=== PATIENT | female | born 1970 | race Caucasian/White ===

== ENCOUNTER 2017-02-12 05:39 | Outpatient (CLI) | payer BC ==
[~2017-02-12] VITALS: Ht 168.9 cm; Wt 74.8 kg
[2017-02-12] MEDS ORDERED: BCP PO (15:17)
== END 2017-02-12 15:17 ==
LOC: PREOP 05:39
PROVIDERS: ATTEND Otolaryngology Otolaryngology/Facial Plastic Surgery
DX: Z01.818 Encounter for other preprocedural examination (principal); R22.1 Localized swelling, mass and lump, neck

== ENCOUNTER → 2017-02-17 | Outpatient (CLI) | payer BC ==
[~2017-02-17] MED LIST: BCP PO; HYDR-3812 PO
--- NOTE | 2017-02-18 10:13 | ECHOCARDIOGRAPHY REPORT ---
PROCEDURE PHYSICIAN: HARJINDER MCGREGOR DATE OF PROCEDURE: 02/17/2017 TWO DIMENSIONAL ECHOCARDIOGRAM REPORT PRIMARY PHYSICIAN: Dr. Loaiza OTHER PHYSICIAN: Dr. De La Torre REFERRING PHYSICIAN: ORDERING PHYSICIAN: Dr. Mcgregor INDICATION FOR THE PROCEDURE: Chest discomfort, abnormal electrocardiogram. MEASUREMENTS DERIVED VALUES LV DIAMETER (LAX) NORMALS NORMALS Diastolic 4.8 (3.6-5.2) Eject. Fract. (60%+/-6%) Systolic (2.3-3.9) Diastolic Vol. % Shortening (0.22-0.42) Systolic Vol. Aortic Root 2.8 IVS THICKNESS Diastolic 0.9 (0.6-1.1) LVPW THICKNESS Diastolic 0.8 (0.6-1.1) LA DIAMETER Systolic 3.4 (2.1-3.7) Baseline echocardiography shows normal global left ventricular systolic function with normal regional wall motion. The aortic, mitral and tricuspid valve leaflets show good leaflet excursion. There is no significant pericardial effusion. Doppler imaging shows trivial, tricuspid and pulmonic regurgitation. There is no Doppler evidence of any significant valvular stenosis. Trivial, mitral regurgitation is also seen. There is no Doppler evidence of any significant valvular stenosis. Aortic valve is trileaflet. Left ventricular ejection fraction of approximately 65%. Pulmonary artery systolic pressure is estimated to be approximately 25 mmHg. There is no evidence of any significant intracardiac shunt on this transthoracic echocardiographic study. Vena cava appears of normal size and does exhibit normal inspiratory collapse. CONCLUSIONS: 1. Normal global left ventricular systolic function with normal regional wall motion. Left ventricular ejection fraction of approximately 60 to 65%. 2. Trivial, mitral, tricuspid and pulmonic regurgitation. 3. No evidence of significant valvular stenosis. 4. Pulmonary artery systolic pressure is estimated to be within normal limits. Job ID: [id number] Dictated Date: 02/17/2017 15:22:43 Director Product Management Date: 02/18/2017 10:06:15 / jackie
--- NOTE | 2017-02-18 12:09 | STRESS TEST ---
PROCEDURE PHYSICIAN: HARJINDER MCGREGOR EXERCISE STRESS ECHOCARDIOGRAPHY REPORT: DATE OF PROCEDURE: 02/17/2017 ORDERING PHYSICIAN: Dr. Mcgregor. PRIMARY PHYSICIAN: Dr. Loaiza OTHER PHYSICIAN: Dr. De La Torre CLINICAL DIAGNOSIS: Chest discomfort, abnormal electrocardiogram. Baseline echocardiography shows normal left ventricular systolic function without regional wall motion abnormalities. Left ventricular ejection fraction is approximately 60%. Exercise was then carried out on a treadmill. Bryan protocol was employed. Heart rate and blood pressure responses to exercise were normal. At peak exercise, there was considerable baseline artifact but there does not appear to be significant ST segment depression beyond her baseline of mild ST segment depression. She exercised for a total of 9 minutes and 51 seconds and attained 12.8 METs of workload and 110% of maximum predicted heart rate. No arrhythmia was seen during the study. Echocardiography was repeated immediately post exercise and it shows normal augmentation of wall motion and ejection fraction. CONCLUSION: 1. No evidence of any exercise-induced myocardial ischemia this study. 2. No evidence of any myocardial ischemia on this study. 3. Left ventricular ejection fraction baseline was 60 to 65%. Job ID: [id number] Dictated Date: 02/17/2017 15:24:45 Packing Machine Tender Date: 02/18/2017 12:02:14 / jackie
== END ==
LOC: CARD 12:15
PROVIDERS: ATTEND Internal Medicine Cardiovascular Disease
DX: R07.89 Other chest pain (principal); R94.31 Abnormal electrocardiogram [ECG] [EKG]; Z86.79 Personal history of other diseases of the circulatory system
CPT/HCPCS: 93306; 93351

== ENCOUNTER 2017-02-20 06:48 | Day surgery (SDC) | payer BC ==
[~2017-02-20] VITALS: Ht 168.9 cm; Wt 74.8 kg
[~2017-02-20 06:48] MED LIST changes: -HYDR-3812 PO
[2017-02-20] MEDS ORDERED: ONDANSETRON 4 MG/2 ML (SDV) Z0FRAN ONE (07:23)
[2017-02-20] MEDS ORDERED: SCOPOLAMINE 1.5 MG (TRANSDERM-SCOP) PATCH ONE (07:23)
[2017-02-20] MEDS ORDERED: FAMOTIDINE 20MG/2ML IV (PEPCID) ONE (07:23)
[2017-02-20] MEDS ORDERED: LACTATED RINGERS 1,000 ML IV PRN (07:28)
[2017-02-20] MEDS ORDERED: ONDANSETRON 4 MG/2 ML (SDV) Z0FRAN IV ONE (07:30)
[2017-02-20] MEDS ORDERED: FAMOTIDINE 20MG/2ML IV (PEPCID) IV ONE (07:30)
[2017-02-20] MEDS ORDERED: SCOPOLAMINE 1.5 MG (TRANSDERM-SCOP) PATCH TOP ONE (07:30)
--- NOTE | 2017-02-20 07:36 | Progress Note-Pre Operative ---
Pre-Operative Progress Note H&P Reviewed The H&P was reviewed, patient examined and no changes noted. Date H&P Reviewed: Feb 20, 2017 Time H&P Reviewed: 07:15 Pre-Operative Diagnosis: Right Neck Mass KATELYNN SPAULDING MD Feb 20, 2017 7:36 am
[2017-02-20] MEDS ORDERED: proPOfol 200 MG/20 ML (DIPRIVAN) VIAL IV ONE (07:42)
[2017-02-20] MEDS ORDERED: MIDAZOLAM 2 MG/2 ML (VERSED) VIAL ONE (07:42)
[2017-02-20] MEDS ORDERED: fentaNYL INJECTION 100 MCG/2 ML AMP ONE ×2 (07:42→09:36)
[2017-02-20] MEDS ORDERED: MUPIROCIN 2% OINT 22 GM (BACTROBAN) TUBE ONE (07:50)
[2017-02-20] MEDS ORDERED: LIDOCAINE/EPI 1%-1:100,000 (XYLOCAINE) 20ML ONE (07:50)
[2017-02-20 07:59] VITALS: BP 119/93
[2017-02-20] MEDS ORDERED: DEXAMETHASONE PF 10 MG/ML (DECADRON) VIAL ONE (09:38)
[2017-02-20] MEDS ORDERED: LACTATED RINGERS 2,000 ML IV ONE (09:38)
[2017-02-20] MEDS ORDERED: SEVOFLURANE (ULTANE) 15 ML INHAL SOLN ONE ×4 (09:38→10:40)
[2017-02-20] MEDS ORDERED: BSS 15 ML ONE (10:35)
[2017-02-20] MEDS ORDERED: morphine INJ 10 MG/ML 1ML (SYR OR VIAL) ONE (10:39)
--- NOTE | 2017-02-20 10:51 | Progress Note-Post Operative ---
Post-Operative Progess Note Surgeon (s)/Senior Director Insight (s) Surgeon KATELYNN SPAULDING MD Senior Director Insight: n/a Pre-Operative Diagnosis RIGHT NECK PAROTID MASS Post-Operative Diagnosis same Post-Op Procedure Note Date of Procedure: Feb 20, 2017 Name of Procedure Performed: Excision of Right Parotid MaSS Description of the Procedure: n/a Findings of the Procedure right intraparotid lymph node to pathology for review Anesthesia Type get Estimated blood loss (mL): minimal Packing: n/a Specimen(s) collected/removed Right Intraparotid lymph node KATELYNN SPAULDING MD Feb 20, 2017 10:50 am
[2017-02-20] MEDS ORDERED: HYDROcodone/APAP 5 MG/325 MG (LORTAB) TAB PO PRN (11:00)
[2017-02-20] MEDS ORDERED: ACETAMINOPHEN 325 MG TABLET/CAPLET (TYLENOL) PO PRN (11:00)
[2017-02-20 11:40] VITALS: BP 116/79
[2017-02-20 12:10] VITALS: BP 118/79
[2017-02-20 12:40] VITALS: BP 103/69
[2017-02-20] MEDS ORDERED: HYDR-3812 PO (12:50)
== END 2017-02-20 13:40 | disposition home or self-care (01) ==
LOC: DELPENDDIS → SDC 06:48
PROVIDERS: ATTEND Otolaryngology Otolaryngology/Facial Plastic Surgery
DX: C82.91 Follicular lymphoma, unspecified, lymph nodes of head, face, and neck (principal)
CPT/HCPCS: 84703; 87081; 88305; 88331; 88341; 88342

== ENCOUNTER → 2017-03-24 | Outpatient (CLI) | payer BC ==
[~2017-03-24] MED LIST changes: +HYDR-3812 PO
--- NOTE | 2017-03-24 16:35 | Diagnostic Imaging Report ---
EXAMINATION: PET-CT TECHNIQUE: Serum glucose level at the time of the study is: 90 mg/dL. 13.4 mCi of FDG was administered intravenously followed by obtaining PET images with corresponding noncontrast CT scan images. The CT scan was performed for anatomic correlation and attenuation correction and was not performed according to the diagnostic protocol of the areas covered. The scan was performed from the head to mid thighs. INDICATION: Lymphoma, initial staging. FINDINGS: There is symmetric FDG uptake in the brain. Moderate hypermetabolism is seen along the nodule abutting the superficial anterior aspect of the right parotid gland, may relate to a preauricular lymph node. There is also asymmetric increased FDG uptake within the right parotid gland inferiorly and may relate to an involved intraparotid lymph node. There is moderate hypermetabolism in the left axilla corresponding to enlarged lymph nodes masses with maximum SUV of 8.4. The larger lymph node is 2.9 x 1.4 cm in size. There is a large mass measuring 4.8 x 3.5 cm in maximum axial dimension along the right anterior chest wall with significant FDG uptake. This may have arisen from an intramammary lymph node and invaded the chest wall and the adjacent chondral cartilage. Its FDG uptake is also overlapping with the sternum. Although there is no obvious erosion of the sternum, there is the suggestion of slight sclerosis which might relate to bone involvement, as well. The maximum SUV is 9.6. The spleen is not enlarged. There is no suspicious hypermetabolic mass seen in the upper abdomen. Urinary tract excretion is seen as expected. There is a mass measuring 2.1 x 1.6 cm in the left side of the pelvis, probably an enlarged left internal iliac lymph node with maximum SUV of 6.8. IMPRESSION: Multiple hypermetabolic enlarged lymph nodes in the neck, left axilla, and left side of the pelvis are seen. A dominant mass in the anterior medial aspect of the right chest wall is perhaps an internal mammary lymph node mass that invaded the chest wall around the corresponding level chondral cartilage and possibly involving the sternum. Dictated by: Dictated on workstation # [id number]
== END ==
LOC: RAD 07:44
PROVIDERS: ATTEND Internal Medicine Hematology & Oncology
DX: C85.90 Non-Hodgkin lymphoma, unspecified, unspecified site (principal); R22.2 Localized swelling, mass and lump, trunk

== ENCOUNTER 2017-03-26 08:25 | Outpatient (RCR) | payer BC ==
[2017-03-13 14:09] LABS: BASOPHILS % (AUTO) 0 % (0-10); EOSINOPHILS # (AUTO) 0.1 10^3/uL (0.0-0.3); EOSINOPHILS % (AUTO) 1 % (0-10); LYMPHOCYTES # (AUTO) 1.8 X 10^3 (1.0-4.0); LYMPHOCYTES % (AUTO) 32 % (12-44); MEAN CORPUSCULAR HEMOGLOBIN 28 PG (25-34); MEAN CORPUSCULAR HGB CONC 32 G/DL (32-36); MEAN CORPUSCULAR VOLUME 87 FL (80-99); MEAN PLATELET VOLUME 9.7 FL (7.4-10.4); MONOCYTES # (AUTO) 0.5 X 10^3 (0.0-1.0); MONOCYTES % (AUTO) 9 % (0-12); NEUTROPHILS # (AUTO) 3.3 X 10^3 (1.8-7.8); NEUTROPHILS % (AUTO) 58 % (42-75); PLATELET COUNT 503 10^3/uL (130-400); RED BLOOD COUNT 4.57 10^6/uL (4.35-5.85); RED CELL DISTRIBUTION WIDTH 13.5 % (10.0-14.5); WHITE BLOOD COUNT 5.8 10^3/uL (4.3-11.0)
[2017-03-13 14:30] LABS: ALANINE AMINOTRANSFERASE 12 U/L (0-55); ALBUMIN 4.3 G/DL (3.2-4.5); ANION GAP 11 MMOL/L (5-14); ASPARTATE AMINO TRANSFERASE 13 U/L (5-34); BILIRUBIN,TOTAL 0.3 MG/DL (0.1-1.0); BLOOD UREA NITROGEN 10 MG/DL (7-18); BUN/CREATININE RATIO 12; CALCIUM 9.1 MG/DL (8.5-10.1); CARBON DIOXIDE 23 MMOL/L (21-32); CHLORIDE 106 MMOL/L (98-107); CREATININE SERUM 0.81 MG/DL (0.60-1.30); GFR ESTIMATED > 60; GLUCOSE 91 MG/DL (70-105); LACTATE DEHYDROGENASE 157 U/L (125-220); POTASSIUM 4.1 MMOL/L (3.6-5.0); SODIUM 140 MMOL/L (135-145); TOTAL PROTEIN 7.1 G/DL (6.4-8.2)
[2017-03-16 10:48] LABS: PEP REPORT SEE PATH REPORT
[2017-03-17 02:45] LABS: IMMUNOGLOBULIN IGA 120 mg/dL (71-263); IMMUNOGLOBULIN IGG 810 mg/dL (672-1680); LIGHT CHAIN KAPPA SERUM QUANT 12.21 mg/L (3.30-19.40)
[2017-03-17 10:18] LABS: IMMUNOGLOBULIN IGM 54 mg/dL (47-209)
[2017-03-19 08:04] LABS: CLIN PATHOLOGY REPORT FOOTNOTE; SERUM PROTEIN ELEC DETAIL L-17-0005378
== END 2017-06-11 | disposition home or self-care (01) ==
LOC: ONC 08:25
PROVIDERS: ATTEND Internal Medicine Hematology & Oncology
DX: C82.91 Follicular lymphoma, unspecified, lymph nodes of head, face, and neck (principal); K21.9 Gastro-esophageal reflux disease without esophagitis; Z79.899 Other long term (current) drug therapy
CPT/HCPCS: 36415; 80053; 82784; 83615; 83883; 84155; 84165; 85025; 99213

== ENCOUNTER → 2017-07-29 | Outpatient (CLI) | payer BC ==
[~2017-07-29] MED LIST changes: +BARIUM SUSPENSION 2.1% (REDI-CAT 2) 450 ML PO ONE; +CATHETER FLUSH 10 ML SYR IV PRN; +IOHEXOL 350 MG/ML 150 ML (OMNIPAQUE 350) VIAL IV ONE; +NS 100 ML (IVPB) BAG IV ONE
--- NOTE | 2017-07-29 15:57 | Diagnostic Imaging Report ---
EXAMINATION: CT of the neck, chest, abdomen, and pelvis with and without contrast. INDICATION: Lymphoma. TECHNIQUE: Contiguous axial sections were taken through the abdomen and pelvis following administration of oral contrast. Subsequent additional images of the neck, chest, abdomen, and pelvis were obtained after intravenous contrast was administered. Delayed series through the abdomen and pelvis was also performed. Sagittal and coronal reconstructed images were obtained as well. FINDINGS: The previous CT chest, abdomen, and pelvis exam of 03/05/[address] neck exam of 01/23/2017 from [facility] in [place], [place] and the PET/CT exam of 03/24/2017 from this institution were reviewed. The PET/CT exam did note hypermetabolic activity along the inferior aspect of the right parotid gland and the left axilla as well as an isolated hypermetabolic node in the left pelvis. On this exam, there is still an enlarged lymph node just superior to the right parotid gland. This measures 1.0 x 1.6 cm. On the prior PET/CT exam, this finding measured approximately 1.8 x 1.0 cm. There is also slightly enhancing lymph node along the inferior pole of the right parotid gland. This measures 1.0 x 1.[address] neck exam of 01/23/2013, this area measured 1.6 x 2.2 cm. The left axillary adenopathy noted previously has diminished. There is only a single node now present in this area. This node measures 1.1 x 2.2 cm as opposed to 1.4 x 2.9 cm previously. The hypermetabolic mass along the anterior aspect of the right thorax near the sternum measuring 3.5 x 4.8 cm on the prior exam has also diminished in size and now is estimated to be 1.7 x 3.9 cm. The hypermetabolic lymph node in the left iliac chain seen on the prior exam measuring 2.2 x 1.6 cm is now estimated to be 2.3 x 1.7 cm. This finding seems virtually unchanged when compare the prior study. The overall appearance of the neck, chest, abdomen, and pelvis does not seem to have changed significantly otherwise. There is no other area of neoplastic activity, and there is no sign of an acute cardiopulmonary abnormality. IMPRESSION: 1. The appearance of the neck and chest has improved since the prior exam. The nodes about the parotid gland on the right seen previously have decreased in size slightly and the left axillary adenopathy has also diminished, although there is still a 1.1 x 2.2 cm node present in this area. The mass along the anterior chest wall noted previously has also decreased in size considerably. 2. There is still a persistent enlarged lymph node in the left iliac chain. This seems unchanged when compared to the prior exam. 3. There is no acute abnormality of the neck, chest, abdomen, or pelvis identified. Dictated by: Dictated on workstation # [id number]
== END ==
LOC: RAD 13:12
PROVIDERS: ATTEND Internal Medicine Hematology & Oncology
DX: C82.18 Follicular lymphoma grade II, lymph nodes of multiple sites (principal)
CPT/HCPCS: 70491; 71260; 74178

== ENCOUNTER 2017-08-18 13:04 | Outpatient (RCR) | payer BC ==
[2017-06-29 14:45] LABS: BASOPHILS % (AUTO) 0 % (0-10); EOSINOPHILS # (AUTO) 0.1 10^3/uL (0.0-0.3); EOSINOPHILS % (AUTO) 1 % (0-10); LYMPHOCYTES # (AUTO) 2.2 X 10^3 (1.0-4.0); LYMPHOCYTES % (AUTO) 28 % (12-44); MEAN CORPUSCULAR HEMOGLOBIN 26 PG (25-34); MEAN CORPUSCULAR HGB CONC 32 G/DL (32-36); MEAN CORPUSCULAR VOLUME 83 FL (80-99); MEAN PLATELET VOLUME 9.1 FL (7.4-10.4); MONOCYTES # (AUTO) 0.5 X 10^3 (0.0-1.0); MONOCYTES % (AUTO) 6 % (0-12); NEUTROPHILS # (AUTO) 5.1 X 10^3 (1.8-7.8); NEUTROPHILS % (AUTO) 65 % (42-75); PLATELET COUNT 499 10^3/uL (130-400); RED BLOOD COUNT 4.36 10^6/uL (4.35-5.85); RED CELL DISTRIBUTION WIDTH 14.5 % (10.0-14.5); WHITE BLOOD COUNT 7.9 10^3/uL (4.3-11.0)
[2017-06-29 16:07] LABS: ALANINE AMINOTRANSFERASE 13 U/L (0-55); ALBUMIN 4.1 GM/DL (3.2-4.5); ANION GAP 9 MMOL/L (5-14); ASPARTATE AMINO TRANSFERASE 15 U/L (5-34); BILIRUBIN,TOTAL 0.3 MG/DL (0.1-1.0); BLOOD UREA NITROGEN 9 MG/DL (7-18); BUN/CREATININE RATIO 11; CALCIUM 9.3 MG/DL (8.5-10.1); CARBON DIOXIDE 24 MMOL/L (21-32); CHLORIDE 106 MMOL/L (98-107); GFR ESTIMATED > 60; GLUCOSE 133 MG/DL (70-105); LACTATE DEHYDROGENASE 161 U/L (125-220); SODIUM 139 MMOL/L (135-145)
[~2017-08-18 13:04] MED LIST changes: -BARIUM SUSPENSION 2.1% (REDI-CAT 2) 450 ML PO ONE; -CATHETER FLUSH 10 ML SYR IV PRN; -IOHEXOL 350 MG/ML 150 ML (OMNIPAQUE 350) VIAL IV ONE; -NS 100 ML (IVPB) BAG IV ONE
[2017-08-18 13:38] LABS: BASOPHILS % (AUTO) 0 % (0-10); EOSINOPHILS # (AUTO) 0.1 10^3/uL (0.0-0.3); EOSINOPHILS % (AUTO) 2 % (0-10); LYMPHOCYTES # (AUTO) 2.1 X 10^3 (1.0-4.0); LYMPHOCYTES % (AUTO) 26 % (12-44); MEAN CORPUSCULAR HEMOGLOBIN 26 PG (25-34); MEAN CORPUSCULAR HGB CONC 32 G/DL (32-36); MEAN CORPUSCULAR VOLUME 82 FL (80-99); MEAN PLATELET VOLUME 9.9 FL (7.4-10.4); MONOCYTES # (AUTO) 0.6 X 10^3 (0.0-1.0); MONOCYTES % (AUTO) 7 % (0-12); NEUTROPHILS # (AUTO) 5.4 X 10^3 (1.8-7.8); NEUTROPHILS % (AUTO) 65 % (42-75); PLATELET COUNT 470 10^3/uL (130-400); RED BLOOD COUNT 4.43 10^6/uL (4.35-5.85); RED CELL DISTRIBUTION WIDTH 14.8 % (10.0-14.5); WHITE BLOOD COUNT 8.2 10^3/uL (4.3-11.0)
[2017-08-18 13:49] LABS: ALANINE AMINOTRANSFERASE 20 U/L (0-55); ALBUMIN 4.1 GM/DL (3.2-4.5); ANION GAP 11 MMOL/L (5-14); ASPARTATE AMINO TRANSFERASE 15 U/L (5-34); BILIRUBIN,TOTAL 0.2 MG/DL (0.1-1.0); BLOOD UREA NITROGEN 9 MG/DL (7-18); BUN/CREATININE RATIO 11; CARBON DIOXIDE 21 MMOL/L (21-32); CHLORIDE 106 MMOL/L (98-107); CREATININE SERUM 0.82 MG/DL (0.60-1.30); GFR ESTIMATED > 60; GLUCOSE 160 MG/DL (70-105); LACTATE DEHYDROGENASE 140 U/L (125-220); POTASSIUM 3.7 MMOL/L (3.6-5.0); SODIUM 138 MMOL/L (135-145); TOTAL PROTEIN 7.2 GM/DL (6.4-8.2)
== END 2017-08-22 | disposition home or self-care (01) ==
LOC: ONC 13:04
PROVIDERS: ATTEND Internal Medicine Hematology & Oncology
DX: C82.91 Follicular lymphoma, unspecified, lymph nodes of head, face, and neck (principal); K21.9 Gastro-esophageal reflux disease without esophagitis; Z79.899 Other long term (current) drug therapy
CPT/HCPCS: 36415; 80053; 83615; 85025; 99213

== ENCOUNTER 2017-11-10 12:49 | Outpatient (RCR) | payer BC ==
[~2017-11-10 12:49] MED LIST changes: +ACHD5005 PO; -HYDR-3812 PO
[2017-11-10 13:09] LABS: BASOPHILS % (AUTO) 0 % (0-10); EOSINOPHILS # (AUTO) 0.1 10^3/uL (0.0-0.3); EOSINOPHILS % (AUTO) 1 % (0-10); HEMATOCRIT 37 % (35-52); LYMPHOCYTES # (AUTO) 2.3 X 10^3 (1.0-4.0); LYMPHOCYTES % (AUTO) 27 % (12-44); MEAN CORPUSCULAR HEMOGLOBIN 27 PG (25-34); MEAN CORPUSCULAR HGB CONC 33 G/DL (32-36); MEAN CORPUSCULAR VOLUME 83 FL (80-99); MEAN PLATELET VOLUME 9.6 FL (7.4-10.4); MONOCYTES # (AUTO) 0.6 X 10^3 (0.0-1.0); MONOCYTES % (AUTO) 6 % (0-12); NEUTROPHILS # (AUTO) 5.8 X 10^3 (1.8-7.8); NEUTROPHILS % (AUTO) 66 % (42-75); PLATELET COUNT 494 10^3/uL (130-400); RED BLOOD COUNT 4.43 10^6/uL (4.35-5.85); RED CELL DISTRIBUTION WIDTH 14.9 % (10.0-14.5); WHITE BLOOD COUNT 8.8 10^3/uL (4.3-11.0)
[2017-11-10 13:26] LABS: ALANINE AMINOTRANSFERASE 16 U/L (0-55); ALBUMIN 4.1 GM/DL (3.2-4.5); ALKALINE PHOSPHATASE 81 U/L (40-136); BILIRUBIN,TOTAL 0.3 MG/DL (0.1-1.0); BUN/CREATININE RATIO 14; CALCIUM 9.2 MG/DL (8.5-10.1); CARBON DIOXIDE 23 MMOL/L (21-32); CHLORIDE 105 MMOL/L (98-107); CREATININE SERUM 0.77 MG/DL (0.60-1.30); GFR ESTIMATED > 60; GLUCOSE 156 MG/DL (70-105); POTASSIUM 3.8 MMOL/L (3.6-5.0); SODIUM 137 MMOL/L (135-145); TOTAL PROTEIN 6.9 GM/DL (6.4-8.2)
== END 2018-02-08 | disposition home or self-care (01) ==
LOC: ONC 12:49
PROVIDERS: ATTEND Internal Medicine Hematology & Oncology
DX: C82.91 Follicular lymphoma, unspecified, lymph nodes of head, face, and neck (principal); K21.9 Gastro-esophageal reflux disease without esophagitis; Z79.899 Other long term (current) drug therapy
CPT/HCPCS: 36415; 80053; 83615; 85025; 99213

== ENCOUNTER 2018-03-18 15:06 | Outpatient (RCR) | payer BC ==
[2018-03-18 14:50] LABS: BASOPHILS % (AUTO) 0 % (0-10); EOSINOPHILS # (AUTO) 0.1 10^3/uL (0.0-0.3); EOSINOPHILS % (AUTO) 1 % (0-10); HEMATOCRIT 37 % (35-52); HEMOGLOBIN 11.6 G/DL (11.5-16.0); LYMPHOCYTES # (AUTO) 2.5 X 10^3 (1.0-4.0); LYMPHOCYTES % (AUTO) 26 % (12-44); MEAN CORPUSCULAR HEMOGLOBIN 26 PG (25-34); MEAN CORPUSCULAR HGB CONC 32 G/DL (32-36); MEAN CORPUSCULAR VOLUME 83 FL (80-99); MONOCYTES # (AUTO) 0.5 X 10^3 (0.0-1.0); MONOCYTES % (AUTO) 5 % (0-12); NEUTROPHILS # (AUTO) 6.6 X 10^3 (1.8-7.8); NEUTROPHILS % (AUTO) 68 % (42-75); PLATELET COUNT 495 10^3/uL (130-400); RED BLOOD COUNT 4.41 10^6/uL (4.35-5.85); RED CELL DISTRIBUTION WIDTH 15.3 % (10.0-14.5); WHITE BLOOD COUNT 9.7 10^3/uL (4.3-11.0)
[2018-03-18 15:12] LABS: ALANINE AMINOTRANSFERASE 20 U/L (0-55); ALBUMIN 4.2 GM/DL (3.2-4.5); ALKALINE PHOSPHATASE 85 U/L (40-136); BILIRUBIN,TOTAL 0.3 MG/DL (0.1-1.0); BUN/CREATININE RATIO 13; CALCIUM 9.2 MG/DL (8.5-10.1); CARBON DIOXIDE 25 MMOL/L (21-32); CHLORIDE 107 MMOL/L (98-107); CREATININE SERUM 0.75 MG/DL (0.60-1.30); GFR ESTIMATED > 60; GLUCOSE 123 MG/DL (70-105); SODIUM 139 MMOL/L (135-145); TOTAL PROTEIN 7.3 GM/DL (6.4-8.2)
== END 2018-06-16 | disposition home or self-care (01) ==
LOC: ONC 15:06
PROVIDERS: ATTEND Internal Medicine Hematology & Oncology
DX: C82.18 Follicular lymphoma grade II, lymph nodes of multiple sites (principal); J06.9 Acute upper respiratory infection, unspecified; K21.9 Gastro-esophageal reflux disease without esophagitis; Z79.899 Other long term (current) drug therapy
CPT/HCPCS: 36415; 80053; 83615; 85025; 99213

== ENCOUNTER 2018-07-07 09:14 | Outpatient (RCR) | payer BC ==
[2018-07-07 09:22] LABS: BASOPHILS % (AUTO) 0 % (0-10); EOSINOPHILS # (AUTO) 0.1 10^3/uL (0.0-0.3); EOSINOPHILS % (AUTO) 1 % (0-10); HEMATOCRIT 37 % (35-52); HEMOGLOBIN 12.1 G/DL (11.5-16.0); LYMPHOCYTES # (AUTO) 2.3 X 10^3 (1.0-4.0); LYMPHOCYTES % (AUTO) 29 % (12-44); MEAN CORPUSCULAR HEMOGLOBIN 27 PG (25-34); MEAN CORPUSCULAR HGB CONC 32 G/DL (32-36); MEAN CORPUSCULAR VOLUME 83 FL (80-99); MEAN PLATELET VOLUME 9.1 FL (7.4-10.4); MONOCYTES # (AUTO) 0.6 X 10^3 (0.0-1.0); MONOCYTES % (AUTO) 8 % (0-12); NEUTROPHILS # (AUTO) 4.8 X 10^3 (1.8-7.8); NEUTROPHILS % (AUTO) 61 % (42-75); PLATELET COUNT 483 10^3/uL (130-400); RED BLOOD COUNT 4.47 10^6/uL (4.35-5.85); RED CELL DISTRIBUTION WIDTH 14.8 % (10.0-14.5); WHITE BLOOD COUNT 7.8 10^3/uL (4.3-11.0)
[2018-07-07 09:43] LABS: ALANINE AMINOTRANSFERASE 21 U/L (0-55); ALBUMIN 4.2 GM/DL (3.2-4.5); ALKALINE PHOSPHATASE 83 U/L (40-136); BILIRUBIN,TOTAL 0.4 MG/DL (0.1-1.0); BUN/CREATININE RATIO 15; CALCIUM 9.2 MG/DL (8.5-10.1); CARBON DIOXIDE 22 MMOL/L (21-32); CHLORIDE 106 MMOL/L (98-107); GFR ESTIMATED > 60; GLUCOSE 108 MG/DL (70-105); POTASSIUM 4.3 MMOL/L (3.6-5.0); SODIUM 138 MMOL/L (135-145)
== END 2018-07-23 | disposition home or self-care (01) ==
LOC: ONC 09:14
PROVIDERS: ATTEND Internal Medicine Hematology & Oncology
DX: C82.18 Follicular lymphoma grade II, lymph nodes of multiple sites (principal); J06.9 Acute upper respiratory infection, unspecified; K21.9 Gastro-esophageal reflux disease without esophagitis; Z79.899 Other long term (current) drug therapy
CPT/HCPCS: 36415; 80053; 82784; 83615; 85025; 99213

== ENCOUNTER 2018-10-07 08:24 | Outpatient (RCR) | payer BC ==
[2018-10-07 08:39] LABS: BASOPHILS % (AUTO) 0 % (0-10); EOSINOPHILS # (AUTO) 0.1 10^3/uL (0.0-0.3); EOSINOPHILS % (AUTO) 1 % (0-10); HEMATOCRIT 36 % (35-52); HEMOGLOBIN 11.7 G/DL (11.5-16.0); LYMPHOCYTES # (AUTO) 1.9 X 10^3 (1.0-4.0); LYMPHOCYTES % (AUTO) 28 % (12-44); MEAN CORPUSCULAR HEMOGLOBIN 27 PG (25-34); MEAN CORPUSCULAR HGB CONC 32 G/DL (32-36); MEAN CORPUSCULAR VOLUME 83 FL (80-99); MEAN PLATELET VOLUME 9.4 FL (7.4-10.4); MONOCYTES # (AUTO) 0.5 X 10^3 (0.0-1.0); MONOCYTES % (AUTO) 8 % (0-12); NEUTROPHILS # (AUTO) 4.3 X 10^3 (1.8-7.8); NEUTROPHILS % (AUTO) 63 % (42-75); PLATELET COUNT 463 10^3/uL (130-400); RED CELL DISTRIBUTION WIDTH 14.4 % (10.0-14.5); WHITE BLOOD COUNT 6.8 10^3/uL (4.3-11.0)
[2018-10-07 09:09] LABS: ALANINE AMINOTRANSFERASE 13 U/L (0-55); ALBUMIN 4.2 GM/DL (3.2-4.5); ALKALINE PHOSPHATASE 94 U/L (40-136); BILIRUBIN,TOTAL 0.3 MG/DL (0.1-1.0); BUN/CREATININE RATIO 13; CALCIUM 9.4 MG/DL (8.5-10.1); CARBON DIOXIDE 23 MMOL/L (21-32); CHLORIDE 106 MMOL/L (98-107); CREATININE SERUM 0.82 MG/DL (0.60-1.30); GFR ESTIMATED > 60; GLUCOSE 85 MG/DL (70-105); POTASSIUM 4.1 MMOL/L (3.6-5.0); SODIUM 137 MMOL/L (135-145); TOTAL PROTEIN 7.2 GM/DL (6.4-8.2)
== END 2019-01-05 | disposition home or self-care (01) ==
LOC: ONC 08:24
PROVIDERS: ATTEND Internal Medicine Hematology & Oncology
DX: C82.18 Follicular lymphoma grade II, lymph nodes of multiple sites (principal); K21.9 Gastro-esophageal reflux disease without esophagitis; Z79.899 Other long term (current) drug therapy
CPT/HCPCS: 36415; 80053; 83615; 85025; 99213

== ENCOUNTER → 2019-01-04 | Outpatient (CLI) | payer BC ==
[~2019-01-04] MED LIST changes: +IOHEXOL 350 MG/ML 100 ML (OMNIPAQUE 350) VIAL IV ONE; +NS 100 ML (IVPB) BAG IV ONE; +RECEIVED CONTRAST (Hold Metformin) IV SCH
--- NOTE | 2019-01-04 13:31 | Diagnostic Imaging Report ---
INDICATION: Lymphoma. TECHNIQUE: Multiple contiguous axial CT images of the neck, chest, abdomen and pelvis are obtained after intravenous administration of iodinated contrast. COMPARISON: Comparison is made to study of 07/29/2017. CT NECK: There has been enlargement of the right preauricular nodule which now reaches 2.9 x 1.8 cm. This previously measured 1.6 x 1.0 cm. No other discrete mass identified. There are mildly prominent deep cervical lymph nodes bilaterally without evidence of significant enlargement since previous study. Airway is patent. There is no evidence of submandibular or thyroid gland abnormality. Great vessels in the neck appear to be widely patent. IMPRESSION: Interval increase in size of right preauricular mass which may be related to recurrent lymphoma. CT THORAX: There has been further increase in size of dominant left axillary lymph node which now measures 2.5 x 1.4 cm. Previous measurement was 2.2 x 1.1 cm. There has also been increase in mass in the right retrosternal region which measures 4.9 x 3.1 cm compared with 3.9 x 1.7 cm on the previous study. No other pathologically enlarged adenopathy is seen within the chest. The lungs are clear. There is no significant pleural or pericardial fluid. IMPRESSION: Increasing left axillary and right internal mammary region masses likely related to active lymphoma. CT ABDOMEN AND PELVIS: 1 cm cyst in the inferior aspect of the right hepatic lobe is stable. No other focal hepatic, gallbladder, pancreatic, adrenal gland or splenic abnormalities identified. The kidneys are also stable and unremarkable. There is no evidence of free fluid within the abdomen or pelvis. No definite pathologically enlarged adenopathy is identified. There has been apparent decrease in size of left internal iliac nodule measured on the previous study. Similar nodule currently measures 1.2 x 0.8 cm compared with 2.3 x 1.8 cm on the previous study. IMPRESSION: Interval decrease in conspicuity of left internal iliac chain nodule suggesting probable good response to treatment. Otherwise, no pathologic adenopathy or acute abnormality seen within the abdomen or pelvis. Dictated by: Dictated on workstation # [id number]
== END ==
LOC: RAD 12:22
PROVIDERS: ATTEND Nurse Practitioner Adult Health
DX: C82.18 Follicular lymphoma grade II, lymph nodes of multiple sites (principal); R22.0 Localized swelling, mass and lump, head
CPT/HCPCS: 70491; 71260; 74176

== ENCOUNTER 2019-01-11 08:42 | Outpatient (RCR) | payer BC ==
[~2019-01-11 08:42] MED LIST changes: -IOHEXOL 350 MG/ML 100 ML (OMNIPAQUE 350) VIAL IV ONE; -NS 100 ML (IVPB) BAG IV ONE; -RECEIVED CONTRAST (Hold Metformin) IV SCH
[2019-01-11 08:50] LABS: BASOPHILS % (AUTO) 0 % (0-10); EOSINOPHILS # (AUTO) 0.1 10^3/uL (0.0-0.3); EOSINOPHILS % (AUTO) 1 % (0-10); HEMATOCRIT 38 % (35-52); HEMOGLOBIN 12.1 G/DL (11.5-16.0); LYMPHOCYTES # (AUTO) 1.3 X 10^3 (1.0-4.0); LYMPHOCYTES % (AUTO) 23 % (12-44); MEAN CORPUSCULAR HEMOGLOBIN 26 PG (25-34); MEAN CORPUSCULAR HGB CONC 32 G/DL (32-36); MEAN CORPUSCULAR VOLUME 82 FL (80-99); MEAN PLATELET VOLUME 9.6 FL (7.4-10.4); MONOCYTES # (AUTO) 0.4 X 10^3 (0.0-1.0); MONOCYTES % (AUTO) 7 % (0-12); NEUTROPHILS # (AUTO) 3.8 X 10^3 (1.8-7.8); NEUTROPHILS % (AUTO) 68 % (42-75); PLATELET COUNT 487 10^3/uL (130-400); RED CELL DISTRIBUTION WIDTH 15.2 % (10.0-14.5); WHITE BLOOD COUNT 5.6 10^3/uL (4.3-11.0)
[2019-01-11 09:10] LABS: ALANINE AMINOTRANSFERASE 11 U/L (0-55); ALBUMIN 4.3 GM/DL (3.2-4.5); ALKALINE PHOSPHATASE 87 U/L (40-136); BILIRUBIN,TOTAL 0.2 MG/DL (0.1-1.0); BUN/CREATININE RATIO 10; CALCIUM 9.6 MG/DL (8.5-10.1); CARBON DIOXIDE 22 MMOL/L (21-32); CHLORIDE 108 MMOL/L (98-107); CREATININE SERUM 0.86 MG/DL (0.60-1.30); GFR ESTIMATED > 60; GLUCOSE 123 MG/DL (70-105); POTASSIUM 3.6 MMOL/L (3.6-5.0); SODIUM 140 MMOL/L (135-145); TOTAL PROTEIN 7.2 GM/DL (6.4-8.2)
== END 2019-04-11 | disposition home or self-care (01) ==
LOC: ONC 08:42
PROVIDERS: ATTEND Internal Medicine Hematology & Oncology
DX: C82.18 Follicular lymphoma grade II, lymph nodes of multiple sites (principal); K21.9 Gastro-esophageal reflux disease without esophagitis; Z79.899 Other long term (current) drug therapy
CPT/HCPCS: 36415; 80053; 83615; 85025; 99213

== ENCOUNTER → 2019-04-20 | Outpatient (CLI) | payer BC ==
[~2019-04-20] MED LIST changes: +BARIUM SUSPENSION 2.1% (VANILLA SILQ) 450 ML PO ONE; +HOLD METFORMIN - RECEIVED CONTRAST 20 ML VIAL IV SCH; +IOHEXOL 350 MG/ML 100 ML (OMNIPAQUE 350) VIAL IV ONE; +NS 100 ML (IVPB) BAG IV ONE
--- NOTE | 2019-04-20 12:17 | Diagnostic Imaging Report ---
INDICATION: Lymphoma. TECHNIQUE: Pre and post contrast axial imaging through the abdomen and pelvis with post contrast axial imaging through the neck and chest was performed. COMPARISON: Correlation is made with prior CT from 01/04/2019. FINDINGS: CT neck: Visualized intracranial structures are unremarkable. Posterior nasopharynx, oropharynx, and larynx are unremarkable. No thyroid masses are seen. Submandibular parotid glands are unremarkable. Previously noted right-sided preauricular node has increased in size, now measuring 3.4 cm x 2.1 cm compared with 2.9 x 1.8 cm. No other enlarged cervical nodes are seen. There are no fluid collections. IMPRESSION: Mild increase in size of right preauricular lymph node when compared with prior CT from 01/04/2019. CT chest: Previously noted left axillary lymph node measures 2.5 x 1.7 cm compared with 2.5 x 1.4 cm. Remainder of the left axilla is unremarkable. The right axilla is unremarkable. Soft tissue mass in the right internal mammary location measures 3.4 x 6.2 cm compared with 3.1 x 4.9 cm. Jyoti and mediastinum are unremarkable. No pericardial or pleural fluid is seen. The pulmonary parenchyma is unremarkable. No nodules, masses, or infiltrates are detected. IMPRESSION: A moderate increase in size of soft tissue mass related to the right internal mammary region when compared with CT from three months earlier. The left axillary node is similar to perhaps minimally larger when compared with prior. No new lymphadenopathy is seen. CT abdomen and pelvis: Small cyst in the inferior right lobe of the liver is stable. No new liver mass is detected. Gallbladder is unremarkable. There is no biliary ductal dilatation. The pancreas is unremarkable. Spleen is normal in size. No adrenal mass is detected. The kidneys are unremarkable. Aorta is nonaneurysmal. No central retroperitoneal or mesenteric lymphadenopathy is seen. The small and large bowel loops are normal in caliber. Previously noted left iliac chain lymph node is no longer visualized on today's study. No definite iliac or inguinal lymphadenopathy is seen. Bladder and uterus are unremarkable. Bony structures are unremarkable. IMPRESSION: No evidence of abdominal or pelvic lymphadenopathy. Previously noted left iliac chain lymph node is no longer visible. No acute feature is identified. Dictated by: Dictated on workstation # [id number]
== END ==
LOC: RAD 11:18
PROVIDERS: ATTEND Internal Medicine Hematology & Oncology
DX: C82.18 Follicular lymphoma grade II, lymph nodes of multiple sites (principal)
CPT/HCPCS: 70491; 71260; 74178

== ENCOUNTER 2019-04-26 12:59 | Outpatient (CLI) | payer BC ==
[~2019-04-26] VITALS: Ht 168.9 cm; Wt 81.6 kg
[~2019-04-26 12:59] MED LIST changes: -BARIUM SUSPENSION 2.1% (VANILLA SILQ) 450 ML PO ONE; -HOLD METFORMIN - RECEIVED CONTRAST 20 ML VIAL IV SCH; -IOHEXOL 350 MG/ML 100 ML (OMNIPAQUE 350) VIAL IV ONE; -NS 100 ML (IVPB) BAG IV ONE
[2019-04-26] MEDS ORDERED: FEXO180T84 PO (14:24)
[2019-04-26] MEDS ORDERED: ACET-2469 PO (14:24)
[2019-04-26] MEDS ORDERED: NAPR220T66 PO (14:24)
[2019-04-26] MEDS ORDERED: OMEP20TA33 PO (14:24)
== END 2019-04-26 14:39 | disposition home or self-care (01) ==
LOC: PREOP 12:59
PROVIDERS: ATTEND Surgery
DX: Z01.818 Encounter for other preprocedural examination (principal)

== ENCOUNTER 2019-04-27 08:05 | Day surgery (SDC) | payer BC ==
[~2019-04-27] VITALS: Ht 168.9 cm; Wt 81.6 kg
[2019-04-27] VITALS (8 sets, daily range): BP systolic 118–132; BP diastolic 68–83
[~2019-04-27 08:05] MED LIST changes: +ACET-2469 PO; +FEXO180T84 PO; +NAPR220T66 PO; +OMEP20TA33 PO
--- OUTSIDE RECORDS SUMMARY | 2019-04-27 08:09 | XMS REPORT | Continuity of Care Document ---
Author Organization Unknown Address Unknown Allergies Active Description Code Type Severity Reaction Onset Reported/Identified Relationship to Patient Clinical Status Yes No Known Drug Allergies [id number] Drug Allergy Unknown N/A 02/12/2017 Medications There is no data. Problems Date Dx Coded Attending Type Code Diagnosis Diagnosed By 02/12/2017 KATELYNN SPAULDING MD Ot R22.1 LOCALIZED SWELLING, MASS AND LUMP, NECK 02/12/2017 KATELYNN SPAULDING MD Ot Z01.818 ENCOUNTER FOR OTHER PREPROCEDURAL EXAMIN 02/13/2017 KATELYNN SPAULDING MD Ot R22.1 LOCALIZED SWELLING, MASS AND LUMP, NECK 02/13/2017 KATELYNN SPAULDING MD Ot Z01.818 ENCOUNTER FOR OTHER PREPROCEDURAL EXAMIN 02/19/2017 TESSA PANTOJA FACC, HARJINDER FACP CCDS Ot R07.89 OTHER CHEST PAIN 02/19/2017 TESSA PANTOJA FACC, ALI FACP CCDS Ot R94.31 ABNORMAL ELECTROCARDIOGRAM [ECG] [EKG] 02/19/2017 HARJINDER ZARATE MD, FACC FACP CCDS Ot Z86.79 PERSONAL HISTORY OF OTHER DISEASES OF 02/20/2017 KATELYNN SPAULDING MD Ot C82.91 FOLLICULAR LYMPHOMA, UNSP, NODES OF HEAD 02/20/2017 KATELYNN SPAULDING MD Ot R22.1 LOCALIZED SWELLING, MASS AND LUMP, NECK 02/25/2017 HARJINDER ZARAET MD, FACC FACP CCDS Ot R07.89 OTHER CHEST PAIN 02/25/2017 TESSA PANTOJA FACC, HARJINDER FACP CCDS Ot R94.31 ABNORMAL ELECTROCARDIOGRAM [ECG] [EKG] 02/25/2017 TESSA PANTOJA FACC ALI FACP CCDS Ot Z86.79 PERSONAL HISTORY OF OTHER DISEASES OF 03/04/2017 KATELYNN SPAULDING MD Ot C82.91 FOLLICULAR LYMPHOMA, UNSP, NODES OF HEAD 03/17/2017 RICKY TORRES Ot C82.91 FOLLICULAR LYMPHOMA, UNSP, NODES OF HEAD 03/24/2017 HARJINDER ZARATE MD, FACCP CCDS Ot R07.89 OTHER CHEST PAIN 03/24/2017 TESSA PANTOJA FACC, HARJINDER [facility] CCDS Ot R94.31 ABNORMAL ELECTROCARDIOGRAM [ECG] [EKG] 03/24/2017 TESSA PANTOJA FACC, HARJINDER [facility] CCDS Ot Z86.79 PERSONAL HISTORY OF OTHER DISEASES OF TH 03/24/2017 BIRAN, BOBAN N Ot C82.91 FOLLICULAR LYMPHOMA, UNSP, NODES OF HEAD 03/25/2017 BRIAN, BOBAN N Ot C85.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, UNSPECIFIED, UNSPE 03/25/2017 BRIAN, BOBAN N Ot R22.2 LOCALIZED SWELLING, MASS AND LUMP, TRUNK 04/09/2017 BRIAN, BOBAN N Ot C82.91 FOLLICULAR LYMPHOMA, UNSP, NODES OF HEAD 04/09/2017 BRIAN, BOBAN N Ot C85.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, UNSPECIFIED, UNSPE 04/09/2017 BRIAN, BOBAN N Ot R22.2 LOCALIZED SWELLING, MASS AND LUMP, TRUNK 06/11/2017 BRIAN, BOBAN N Ot C82.91 FOLLICULAR LYMPHOMA, UNSP, NODES OF HEAD 06/11/2017 BRIAN, BOBAN N Ot K21.9 GASTRO-ESOPHAGEAL REFLUX DISEASE WITHOUT 06/11/2017 BRIAN, BOBAN N Ot Z79.899 OTHER CARE HOME (CURRENT) DRUG THERAPY 06/12/2017 BRIAN, BOBAN N Ot C82.91 FOLLICULAR LYMPHOMA, UNSP, NODES OF HEAD 06/12/2017 BRIAN, BOBAN N Ot K21.9 GASTRO-ESOPHAGEAL REFLUX DISEASE WITHOUT 06/12/2017 BRIAN, BOBAN N Ot 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 06/17/2017 BRIAN, BOBAN N Ot C82.91 FOLLICULAR LYMPHOMA, UNSP, NODES OF HEAD 06/17/2017 BRIAN, BOBAN N Ot K21.9 GASTRO-ESOPHAGEAL REFLUX DISEASE WITHOUT 06/17/2017 BRIAN, BOBAN N Ot Z79.899 OTHER CARE HOME (CURRENT) DRUG THERAPY 06/25/2017 BRIAN, BOBAN N Ot C82.91 FOLLICULAR LYMPHOMA, UNSP, NODES OF HEAD 06/30/2017 BRIAN, BOBAN N Ot C82.91 FOLLICULAR LYMPHOMA, UNSP, NODES OF HEAD 07/28/2017 TESSA PANTOJA FACC, HARJINDER VERMA CCDS Ot R07.89 OTHER CHEST PAIN 07/28/2017 TESSA PANTOJA FACC, HARJINDER VERMA CCDS Ot R94.31 ABNORMAL ELECTROCARDIOGRAM [ECG] [EKG] 07/28/2017 TESSA PANTOJA FACC, HARJINDER VERMA CCDS Ot Z86.79 PERSONAL HISTORY OF OTHER DISEASES OF TH 07/28/2017 ANGELO TORRESAN N Ot C85.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, UNSPECIFIED, UNSPE 07/28/2017 BRIAN BOBAN N Ot R22.2 LOCALIZED SWELLING, MASS AND LUMP, TRUNK 07/28/2017 BRIAN, BOBAN N Ot C82.91 FOLLICULAR LYMPHOMA, UNSP, NODES OF HEAD 08/05/2017 BRIAN, BOBAN N Ot C82.91 FOLLICULAR LYMPHOMA, UNSP, NODES OF HEAD 08/12/2017 BRIAN, BOBAN N Ot C82.18 FOLLICULAR LYMPHOMA GRADE II, LYMPH NODE 08/22/2017 BRIAN, BOBAN N Ot C82.91 FOLLICULAR LYMPHOMA, UNSP, NODES OF HEAD 08/22/2017 BRIAN, BOBAN N Ot K21.9 GASTRO-ESOPHAGEAL REFLUX DISEASE WITHOUT 08/22/2017 BRIAN, BOBAN N Ot 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 11/12/2017 BRIAN, BOBAN N Ot C82.91 FOLLICULAR LYMPHOMA, UNSP, NODES OF HEAD 11/12/2017 BRIAN, BOBAN N Ot K21.9 GASTRO-ESOPHAGEAL REFLUX DISEASE WITHOUT 11/12/2017 BRIAN, BOBAN N Ot Z79.899 OTHER CARE HOME (CURRENT) DRUG THERAPY 12/02/2017 BRIAN, BOBAN N Ot C82.91 FOLLICULAR LYMPHOMA, UNSP, NODES OF HEAD 12/02/2017 BRIAN, BOBAN N Ot K21.9 GASTRO-ESOPHAGEAL REFLUX DISEASE WITHOUT 12/02/2017 BRIAN, BOBAN N Ot Z79.899 OTHER CARE HOME (CURRENT) DRUG THERAPY 02/08/2018 BRIAN, BOBAN N Ot C82.91 FOLLICULAR LYMPHOMA, UNSP, NODES OF HEAD 02/08/2018 BRIAN, BOBAN N Ot K21.9 GASTRO-ESOPHAGEAL REFLUX DISEASE WITHOUT 02/08/2018 BRIAN, BOBAN N Ot Z79.899 OTHER CARE HOME (CURRENT) DRUG THERAPY 03/18/2018 TESSA PANTOJA FACC, ALI FACP CCDS Ot R07.89 OTHER CHEST PAIN 03/18/2018 TESSA PANTOJA [facility] CCDS Ot R94.31 ABNORMAL ELECTROCARDIOGRAM [ECG] [EKG] 03/18/2018 TESSA PANTOJA [facility] CCDS Ot Z86.79 PERSONAL HISTORY OF OTHER DISEASES OF 03/18/2018 RICKY TORRES N Ot C85.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, UNSPECIFIED, UNSPE 03/18/2018 BRIAN RICKY N Ot R22.2 LOCALIZED SWELLING, MASS AND LUMP, TRUNK 03/18/2018 BRIAN ANGELOAN N Ot C82.18 FOLLICULAR LYMPHOMA GRADE II, LYMPH NODE 04/07/2018 BRIAN, BOBAN N Ot C82.18 FOLLICULAR LYMPHOMA GRADE II, LYMPH NODE 04/07/2018 BRIAN, BOBAN N Ot J06.9 ACUTE UPPER RESPIRATORY INFECTION, UNSPE 04/07/2018 BRIAN BOBAN N Ot K21.9 GASTRO-ESOPHAGEAL REFLUX DISEASE WITHOUT 04/07/2018 BRIAN, BOBAN N Ot Z79.899 OTHER CARE HOME (CURRENT) DRUG THERAPY 06/16/2018 BRIAN, BOBAN N Ot C82.18 FOLLICULAR LYMPHOMA GRADE II, LYMPH NODE 06/16/2018 BRIAN, BOBAN N Ot J06.9 ACUTE UPPER RESPIRATORY INFECTION, UNSPE 06/16/2018 BRIAN, BOBAN N Ot K21.9 GASTRO-ESOPHAGEAL REFLUX DISEASE WITHOUT 06/16/2018 BRIAN, BOBAN N Ot Z79.899 OTHER CARE HOME (CURRENT) DRUG THERAPY 06/17/2018 BRIANANGELOAN N Ot C82.18 FOLLICULAR LYMPHOMA GRADE II, LYMPH NODE 06/17/2018 BRIAN BOBAN N Ot J06.9 ACUTE UPPER RESPIRATORY INFECTION, UNSPE 06/17/2018 BRIAN, BOBAN N Ot K21.9 GASTRO-ESOPHAGEAL REFLUX DISEASE WITHOUT 06/17/2018 BRIAN, BOBAN N Ot Z79.899 OTHER CARE HOME (CURRENT) DRUG THERAPY 07/23/2018 BRIAN, BOBAN N Ot C82.18 FOLLICULAR LYMPHOMA GRADE II, LYMPH NODE 07/23/2018 BRIAN BOBAN N Ot J06.9 ACUTE UPPER RESPIRATORY INFECTION, UNSPE 07/23/2018 BRIAN, BOBAN N Ot K21.9 GASTRO-ESOPHAGEAL REFLUX DISEASE WITHOUT 07/23/2018 BRIAN, BOBAN N Ot Z79.899 OTHER CARE HOME (CURRENT) DRUG THERAPY 08/04/2018 BRIAN, BOBAN N Ot C82.18 FOLLICULAR LYMPHOMA GRADE II, LYMPH NODE 08/04/2018 BRIAN BOBAN N Ot J06.9 ACUTE UPPER RESPIRATORY INFECTION, UNSPE 08/04/2018 BRIAN BOBAN N Ot K21.9 GASTRO-ESOPHAGEAL REFLUX DISEASE WITHOUT 08/04/2018 BRIAN, BOBAN N Ot 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 08/23/2018 BRIAN, BOBAN N Ot C82.18 FOLLICULAR LYMPHOMA GRADE II, LYMPH NODE 08/23/2018 BRIAN BOBAN N Ot J06.9 ACUTE UPPER RESPIRATORY INFECTION, UNSPE 08/23/2018 BRIAN, BOBAN N Ot K21.9 GASTRO-ESOPHAGEAL REFLUX DISEASE WITHOUT 08/23/2018 BRIAN, BOBAN N Ot 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 08/23/2018 BRIAN, BOBAN N Ot C82.18 FOLLICULAR LYMPHOMA GRADE II, LYMPH NODE 08/23/2018 BRIAN BOBRENETTA N Ot J06.9 ACUTE UPPER RESPIRATORY INFECTION, UNSPE 08/23/2018 BRIAN BOBAN N Ot K21.9 GASTRO-ESOPHAGEAL REFLUX DISEASE WITHOUT 08/23/2018 BRIAN, BOBAN N Ot Z79.899 OTHER CARE HOME (CURRENT) DRUG THERAPY 11/08/2018 BRIAN, BOBAN N Ot C82.18 FOLLICULAR LYMPHOMA GRADE II, LYMPH NODE 11/08/2018 BRIAN, BOBAN N Ot K21.9 GASTRO-ESOPHAGEAL REFLUX DISEASE WITHOUT 11/08/2018 BRIAN, BOBAN N Ot 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 01/04/2019 ОЛЕГ [place] SOAP CHIPPER Ot C82.18 FOLLICULAR LYMPHOMA GRADE II, LYMPH NODE 01/04/2019 ОЛЕГ [place] SOAP CHIPPER Ot R22.0 LOCALIZED SWELLING, MASS AND LUMP, HEAD 01/05/2019 BRIAN, BOBAN N Ot C82.18 FOLLICULAR LYMPHOMA GRADE II, LYMPH NODE 01/05/2019 BRIAN, BOBAN N Ot K21.9 GASTRO-ESOPHAGEAL REFLUX DISEASE WITHOUT 01/05/2019 BRIAN, BOBAN N Ot 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 01/06/2019 BRIAN, BOBAN N Ot C82.18 FOLLICULAR LYMPHOMA GRADE II, LYMPH NODE 01/06/2019 BRIANRICKY N Ot K21.9 GASTRO-ESOPHAGEAL REFLUX DISEASE WITHOUT 01/06/2019 BRIAN BOBAN N Ot 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 01/11/2019 RICKY TORRES N Ot C82.18 FOLLICULAR LYMPHOMA GRADE II, LYMPH NODE 01/11/2019 BRIANRICKY RENEE N Ot K21.9 GASTRO-ESOPHAGEAL REFLUX DISEASE WITHOUT 01/11/2019 BRIAN, BOBAN N Ot 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 01/20/2019 [place] ОЛЕГ [place]aley SOAP CHIPPER Ot C82.18 FOLLICULAR LYMPHOMA GRADE II, LYMPH NODE 01/20/2019 ОЛЕГ [place] SOAP CHIPPER Ot R22.0 LOCALIZED SWELLING, MASS AND LUMP, HEAD 02/07/2019 BRIAN BOBRENETTA N Ot C82.18 FOLLICULAR LYMPHOMA GRADE II, LYMPH NODE 02/07/2019 BRIANRICKY RENEE N Ot K21.9 GASTRO-ESOPHAGEAL REFLUX DISEASE WITHOUT 02/07/2019 BRIAN BOBRENETTA N Ot 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 04/11/2019 BRIANRICKY RENEE N Ot C82.18 FOLLICULAR LYMPHOMA GRADE II, LYMPH NODE 04/11/2019 BRIANRICKY N Ot K21.9 GASTRO-ESOPHAGEAL REFLUX DISEASE WITHOUT 04/11/2019 BRIAN, BOBAN N Ot 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 04/12/2019 BRIAN, BOBRENETTA N Ot C82.18 FOLLICULAR LYMPHOMA GRADE II, LYMPH NODE 04/12/2019 BRIANRICKY RENEE N Ot K21.9 GASTRO-ESOPHAGEAL REFLUX DISEASE WITHOUT 04/12/2019 BRIAN, BOBAN N Ot 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 Results Test Result Range Urine beta human chorionic gonadotropin (hCG) measurement - 02/20/17 06:55 Urine beta human chorionic gonadotropin (hCG) measurement NEGATIVE NEGATIVE Methicillin resistant Staphylococcus aureus (MRSA) screening culture - 02/20/17 07:00 Methicillin resistant Staphylococcus aureus (MRSA) screening culture NEG NRG Encounters ACCT No. Visit Date/Time Discharge Status Pt. Type Provider Facility Loc./Unit Complaint [id number] 03/09/2019 14:15:00 03/09/2019 23:59:59 CLS Outpatient [facility] MULTANI [facility] [id number] 04/20/2019 11:18:00 04/20/2019 23:59:59 CLS Outpatient RICKY TORRES [facility] RAD LYMPHOMA [id number] 04/12/2019 10:18:00 04/12/2019 23:59:59 CLS Preadmit RICKY TORRES [facility] RAD LYMPHOMA [id number] 01/11/2019 08:42:00 04/11/2019 00:01:00 DIS Outpatient RICKY TORRES [facility] ONC [id number] 10/07/2018 08:24:00 01/05/2019 00:01:00 DIS Outpatient RICKY TORRES [facility] ONC [id number] 01/04/2019 12:22:00 01/04/2019 23:59:59 CLS Outpatient ОЛЕГ BLACKWELL [facility] RAD IMAGING STUDY TO RESTAGE NEOPLASM [id number] 07/07/2018 09:14:00 07/23/2018 00:01:00 DIS Outpatient RICKY TORRES [facility] ONC [id number] 03/18/2018 15:06:00 06/16/2018 00:01:00 DIS Outpatient RICKY TORRES [facility] ONC [id number] 11/10/2017 12:49:00 02/08/2018 00:01:00 DIS Outpatient RICKY TORRES [facility] ONC [id number] 08/18/2017 13:04:00 08/22/2017 00:01:00 DIS Outpatient RICKY TORRES [facility] ONC [id number] 07/29/2017 13:12:00 07/29/2017 23:59:59 CLS Outpatient RICKY TORRES [facility] RAD LYMPHOMA C82.18 [id number] 03/26/2017 08:25:00 06/11/2017 00:01:00 DIS Outpatient RICKY TORRES [facility] ONC [id number] 03/24/2017 07:44:00 03/24/2017 23:59:59 CLS Outpatient RICKY TORRES [facility] RAD C85.90 [id number] 02/20/2017 06:48:00 02/20/2017 13:40:00 DIS Outpatient KATELYNN SPAULDING MD [facility] SDC RIGHT NECK MASS [id number] 02/17/2017 12:15:00 02/17/2017 23:59:59 CLS Outpatient TESSA PANTOJA FACC, HARJINDER VERMA CCDS [facility] CARD CHEST DISCOMFORT,ABNORMAL ECG,H/O PERICARDITIS [id number] 02/12/2017 05:39:00 02/12/2017 15:17:00 DIS Outpatient KATELYNN SPAULDING MD [facility] PREOP RIGHT NECK MASS [id number] 04/26/2019 08:59:00 ACT Outpatient RICKY TORRES [facility] ONC
[2019-04-27] MEDS ORDERED: LACTATED RINGERS 1,000 ML IV PRN (08:15)
[2019-04-27] MEDS ORDERED: ceFAZolin 2 GM/50 ML NS 50 ML IV ONE (08:30)
[2019-04-27] MEDS ORDERED: FAMOTIDINE 20MG/2ML IV (PEPCID) IV ONE (09:00)
[2019-04-27] MEDS ORDERED: ONDANSETRON 4 MG/2 ML (SDV) Z0FRAN IV ONE (09:00)
[2019-04-27] MEDS ORDERED: SCOPOLAMINE 1.5 MG (TRANSDERM-SCOP) PATCH TOP ONE (09:00)
[2019-04-27] MEDS ORDERED: BUPIVACAINE 0.5% 30 ML (SENSORCAINE) VIAL ONE (10:02)
[2019-04-27] MEDS ORDERED: 0.9% SODIUM CHLORIDE PF INJ 20 ML VIAL ONE (10:02)
[2019-04-27] MEDS ORDERED: HEParin (CENTRAL IV FLUSH) 500 UNIT/5 ML SYR ONE (10:02)
[2019-04-27] MEDS ORDERED: LIDOCAINE/EPI 1%-1:100,000 (XYLOCAINE) 20ML ONE (10:03)
[2019-04-27] MEDS ORDERED: fentaNYL INJECTION 100 MCG/2 ML AMP ONE (10:13)
[2019-04-27] MEDS ORDERED: MIDAZOLAM 2 MG/2 ML (VERSED) VIAL ONE (10:13)
[2019-04-27] MEDS ORDERED: DEXAMETHASONE 10 MG/ML (DECADRON) 1 ML VIAL ONE (10:13)
[2019-04-27] MEDS ORDERED: ONDANSETRON 4 MG/2 ML (SDV) Z0FRAN ONE (10:13)
[2019-04-27] MEDS ORDERED: PROPOFOL INJECTION 50 ML IV ONE (10:13)
--- NOTE | 2019-04-27 11:23 | Progress Note-Post Operative ---
Post-Operative Progess Note Surgeon (s)/Milieu Counselor (s) Surgeon TANJA HASTINGS DO Milieu Counselor: none Pre-Operative Diagnosis LYMPHOMA, Venous Insufficiency Post-Operative Diagnosis same Procedure & Operative Findings Date of Procedure 04/27/19 Procedure Performed/Findings Ambrosio-cath insertion Anesthesia Type IV sedation by KENO ATTENDANT Estimated Blood Loss Estimated blood loss (mL): scant Specimens/Packing Specimens Removed none TANJA HASTINGS DO Apr 27, 2019 11:23
--- NOTE | 2019-04-27 11:25 | Discharge Inst-Surgical ---
Discharge Inst-Surgical Depart Medication/Instructions New, Converted or Re-Newed RX: Other (no Rx needed) Patient Instructions Follow up Appt: Make appointment for 1 week. [phone] Instructions: May shower in 24 hours, no tub bath or soaking. Use incentive spirometer at home as directed. No Smoking Skin/Wound Care: May remove bandages in am. You need to leave the Dermabond on incision it will fall off on it's own. Symptoms to Report: Appetite Changes, Extremity Discoloration, Numbness/Tingling, Swelling Increased, Bleeding Excessive, Eyesight Changes, Pain Increased, Urine Color Change, Constipation(Persistent), Fever over 101 degree F, Pain/Pressure in chest, Urinating Difficulty, Cough Up/Vomit Blood, Heart Beat Irreg/Pounding, Pa in/Pressure in jaw, Cramps in feet or legs, Lightheadedness, Pain/Pressure in shoulder, Diarrhea(Persistent), Memory Changes Suddenly, Questions/Concerns, Weight gain consecutive days, Dizziness/Fainting, Nausea/Vomiting, Shortness of Breath, Weight gain over 2 pounds If questions or concerns contact your physician Or seek help at emergency department. Activity Activity as Tolerated: Yes Activity Instructions: Avoid Stress to Incision Driving Instructions: No Driving/Refer to Dr. Florence Discharge Diet: No Restrictions Diet After 24 Hours: Clear Liquid if Nauseous If Any Problems/Questions/Issu: Contact Your Physician, Go to Emergency Room Skin/Wound Care Infection Signs and Symptoms: Increased Redness, Foul Odor of Wound, Increased Drainage, Skin Itchy or Has a Rash, Increased Swelling, Temperature Above 101 F Bathing Instructions: Shower Stitches/Gerard/Dermabond Dis: Dermabond Ice Pack: Ice On and Off Site TANJA HASTINGS DO Apr 27, 2019 11:25
[2019-04-27] MEDS ORDERED: ONDANSETRON 4 MG/2 ML (SDV) Z0FRAN IVP PRN (11:30)
--- NOTE | 2019-04-27 11:34 | Anesthesia-General Post-Op ---
MAC Patient Condition Mental Status/LOC: Same as Preop Cardiovascular: Satisfactory Nausea/Vomiting: Absent Respiratory: Satisfactory Pain: Controlled Complications: Absent Post Op Complications Complications None Follow Up Care/Instructions Patient Instructions None needed. Anesthesiology Discharge Order Discharge Order Patient is doing well, no complaints, stable vital signs, no apparent adverse anesthesia problems. No complications reported per nursing. NOLAN WARREN CRNA Apr 27, 2019 11:34
--- NOTE | 2019-04-27 12:10 | NUR ---
PHONED DR HASTINGS TO CLARIFY D/C INSTRUCTIONS STATING TO USE INCENTIVE SPIROMETER AT HOME DIRECTED- HE VERBALIZED NO THAT PT DOES NOT NEED INCENTIVE TEACHING.
--- NOTE | 2019-04-27 12:53 | NUR ---
HAS BEEN ALERT, DENIES NAUSEA THROUGHOUT RECOVERY. NOW RATES RIGHT UPPER CHEST PORT SITE PAIN "MAYBE A 1". DERMABOND REMAINS INTACT TO RIGHT UPPER CHEST PORT INSERTION SITE. PT STATES SHE IS READY FOR DISMISSAL.
--- NOTE | 2019-04-27 15:54 | OPERATIVE REPORT ---
DATE OF SERVICE: 04/27/2019 PREOPERATIVE DIAGNOSES: Venous insufficiency and lymphoma. POSTOPERATIVE DIAGNOSES: Venous insufficiency and lymphoma. PROCEDURE: Port-A-Cath insertion. SURGEON: Patrick Mccain DO TITLE DEPARTMENT MANAGER: None. ANESTHESIA: IV sedation by the [employer]CHANDISER. BLOOD LOSS: Scant. SPECIMENS: None. FLUIDS: Per anesthesia. POSTOPERATIVE CONDITION: Stable. INDICATION FOR PROCEDURE: The patient is a 48-year-old female, who unfortunately was recently diagnosed with follicular non-Hodgkin's lymphoma, has some venous insufficiency, needs a Port-A-Cath for long-term chemotherapy. FINDINGS: The patient had a Port-A-Cath placed for an anterior chest wall, right subclavian vein without any difficulty. PROCEDURE NOTE: After informed consent was obtained, the patient was brought to the operating room, placed on the table in supine position. She was sterilely prepped and draped in normal fashion. Local lidocaine was used to infiltrate the skin towards the right clavicle as well as in the right anterior chest wall to create a pocket. The patient was then placed in Trendelenburg and then advanced the 18-gauge fine needle with negative inspiration and cannulated the right subclavian vein on the first attempt. Good flash of blood, removed the syringe, placed a guidewire using Seldinger technique. It went in easily and then checked the position with fluoroscopy, it was in good position. At this point, I then made a stab incision along the guidewire and then with a #11 blade and then made an incision in the right anterior chest wall with #11 blade and carried it down through the skin into subcutaneous tissue, deepened down to subcutaneous tissue with Bovie electrocautery down to the fascia of the pectoralis muscle. I then over the guidewire placed a dilator using Seldinger technique, it went in easily, we checked with fluoroscopy, it was in good position. I removed the tunneled catheter from the stab incision into the pocket and then removed the inner portion of the dilator sheath and the guidewire and placed the catheter down the dilator using Seldinger technique, checked with fluoroscopy, it was in good position. I removed the external portion of the dilator and then attached the catheter to the port and then accessed the port with a Grady needle. Good flash of blood and then flushed with saline, had locked the catheter in place with a locking mechanism and then aspirated and then flushed with 2 mL of heparin. 3-0 Prolene suture was placed on the pectoralis fascia and then sutured to the port. Port was placed in the pocket and then sutured down, laid it in nicely, checked with fluoroscopy, it was in good position. No kinks of the catheter. At this point, I then closed the incision, closing the deep subcutaneous tissue with 3-0 Vicryl 2 interrupted sutures, closed the skin with 4-0 undyed Monocryl 3 interrupted subcuticular stitches and then the stab incision was also closed with 4-0 undyed Monocryl simple subcuticular stitch. Area was cleaned and dried. Dermabond placed as well as Band-Aids. The patient was then transferred to recovery room in stable condition. Sponge, instrument, and needle count were correct at the end of the case. Job ID: [id number] DocumentID: [id number] Dictated Date: 04/27/2019 11:21:33 Rabbit Breeder Date: 04/27/2019 15:53:35 Dictated By: PATRICK MCCAIN DO
--- NOTE | 2019-04-27 16:07 | Diagnostic Imaging Report ---
INDICATION: Port-A-Cath placement. COMPARISON: None. TOTAL FLUOROSCOPY TIME: 3.6 seconds. FINDINGS: A single intraoperative image intensifier view of the right chest was obtained during Port-A-Cath placement. The image provided shows a right subclavian approach. The central tip of the catheter is obscured. Evaluation for pneumothorax is suboptimal given the fluoroscopic modality. Please note, the interpreting radiologist was not present during the procedure. IMPRESSION: Fluoroscopic guidance was provided during Port-A-Cath placement as described above. Dictated by: Dictated on workstation # [id number]
== END 2019-04-27 12:53 | disposition home or self-care (01) ==
LOC: SDC 08:05
PROVIDERS: ATTEND Surgery
DX: I87.2 Venous insufficiency (chronic) (peripheral) (principal); C82.18 Follicular lymphoma grade II, lymph nodes of multiple sites; K21.9 Gastro-esophageal reflux disease without esophagitis; Z88.5 Allergy status to narcotic agent; Z11.2 Encounter for screening for other bacterial diseases
CPT/HCPCS: 84703; 87081

== ENCOUNTER 2019-05-14 15:27 | Emergency (ER) | payer BC ==
[~2019-05-14] VITALS: Ht 168.9 cm; Wt 81.6 kg
[2019-05-14 16:34] LABS: BILIRUBIN,URINE NEGATIVE (NEGATIVE); CLARITY,URINE CLEAR; COLOR,URINE PALE YELLOW; GLUCOSE, URINE (UA) NEGATIVE (NEGATIVE); KETONES,URINE NEGATIVE (NEGATIVE); LEUKOCYTE ESTERASE ,URINE NEGATIVE (NEGATIVE); NITRITE,URINE NEGATIVE (NEGATIVE); PROTEIN,URINE NEGATIVE (NEGATIVE); UROBILINOGEN,URINE 0.2 MG/DL (NORMAL)
[2019-05-14 16:35] LABS: BACTERIA,URINE NEGATIVE /HPF; SQUAMOUS EPITHELIAL CELL,UR 0-2 /HPF
[2019-05-14 17:01] LABS: BASOPHILS % (AUTO) 1 % (0-10); EOSINOPHILS # (AUTO) 0.1 10^3/uL (0.0-0.3); EOSINOPHILS % (AUTO) 1 % (0-10); HEMATOCRIT 36 % (35-52); HEMOGLOBIN 11.1 G/DL (11.5-16.0); LYMPHOCYTES # (AUTO) 0.2 X 10^3 (1.0-4.0); LYMPHOCYTES % (AUTO) 4 % (12-44); MEAN CORPUSCULAR HEMOGLOBIN 26 PG (25-34); MEAN CORPUSCULAR HGB CONC 31 G/DL (32-36); MEAN CORPUSCULAR VOLUME 83 FL (80-99); MEAN PLATELET VOLUME 9.4 FL (7.4-10.4); MONOCYTES # (AUTO) 0.4 X 10^3 (0.0-1.0); MONOCYTES % (AUTO) 7 % (0-12); NEUTROPHILS # (AUTO) 5.4 X 10^3 (1.8-7.8); NEUTROPHILS % (AUTO) 88 % (42-75); PLATELET COUNT 348 10^3/uL (130-400); RED CELL DISTRIBUTION WIDTH 16.4 % (10.0-14.5); WHITE BLOOD COUNT 6.1 10^3/uL (4.3-11.0)
--- NOTE | 2019-05-14 17:02 | Diagnostic Imaging Report ---
EXAMINATION: Chest radiograph, portable AP view. DATE: May 14, 2019 at 1631 hours. INDICATION: 48-year-old female, fever. COMPARISON: CTA of the neck, chest, abdomen and pelvis, April 20, 2019. FINDINGS: There is a right-sided port catheter. The catheter tip overlies the mid to lower SVC. Heart size and mediastinal contours are unremarkable. There is no identified pneumothorax. There is no large pleural effusion. There is no identified focal airspace consolidation. The previously identified anterior mediastinal/pleural-based lesion on prior CT is not well seen are evaluated, radiographically. IMPRESSION: No identified interval acute cardiopulmonary abnormality. Dictated by: Dictated on workstation # [id number]
[2019-05-14 17:27] LABS: ALANINE AMINOTRANSFERASE 19 U/L (0-55); ALKALINE PHOSPHATASE 93 U/L (40-136); BILIRUBIN,TOTAL 0.3 MG/DL (0.1-1.0); BUN/CREATININE RATIO 6; CALCIUM 8.9 MG/DL (8.5-10.1); CARBON DIOXIDE 21 MMOL/L (21-32); CHLORIDE 100 MMOL/L (98-107); CREATININE SERUM 0.78 MG/DL (0.60-1.30); GFR ESTIMATED > 60; GLUCOSE 114 MG/DL (70-105); SODIUM 136 MMOL/L (135-145); TOTAL PROTEIN 6.7 GM/DL (6.4-8.2)
--- NOTE | 2019-05-14 17:33 | ED General ---
General Chief Complaint: Fever-Adult/Adol Stated Complaint: FEVER - CHEMO ON & Source of Information: Patient Exam Limitations: No Limitations History of Present Illness Date Seen by Provider: May 14, 2019 Time Seen by Provider: 16:45 Initial Comments Patient is a 48-year-old female with history of non-Hodgkin's lymphoma diagnosed in 2016 currently on 2 day monthly chemotherapy with last doses on May 03 and who presents with sweats, chills and a fever 100.9. Symptom onset was yesterday. Fever was checked earlier today. Tylenol taken 4 hours prior to their arrival. Patient reports mild sore throat. Denies photophobia, neck pain, stiffness, facial pain, tenderness, cough, shortness of breath, or any frequency urgency. Patient does report mild headache but states she gets headaches whenever she has fevers and a current headache essentially went away with treatment of Tylenol. No nausea or vomiting, no abdominal pain. No rash. No other acute symptoms or complaints. Patient recently had a port placed 3 weeks ago and [place]. Denies increased redness swelling around port site. No other acute symptoms or complaints Timing/Duration: 12-24 Hours Allergies and Home Medications Allergies Coded Allergies: hydrocodone (Unverified Adverse Reaction, Mild, 04/27/19) CAUSES NAUSEA/VOMITING, MIGRAINE BARTH Home Medications Acetaminophen/Diphenhydramine 1 Each Tablet, 1 EACH PO HS, (Reported) Fexofenadine HCl 180 Mg Tablet, 180 MG PO DAILY, (Reported) Naproxen Sodium 220 Mg Tablet, 220 MG PO PRN, (Reported) Omeprazole Magnesium 20 Mg Tablet.dr, 20 MG PO DAILY, (Reported) [Bcp] , 1 TAB PO DAILY, (Reported) Patient Home Medication List Home Medication List Reviewed: Yes Review of Systems Review of Systems Constitutional: diaphoresis, fever EENTM: see HPI Respiratory: no symptoms reported Cardiovascular: no symptoms reported Gastrointestinal: no symptoms reported Genitourinary: no symptoms reported Skin: no symptoms reported Psychiatric/Neurological: No Symptoms Reported Hematologic/Lymphatic: No Symptoms Reported Immunological/Allergic: no symptoms reported All Other Systems Reviewed Negative Unless Noted: Yes Past Azdpsvv-Nbogqo-Joszle Hx Past Med/Social Hx: Reviewed Nursing Past Med/Soc Hx Patient Social History 2nd Hand Smoke Exposure: No Recent Hopitalizations: No Immunizations Up To Date Tetanus Booster (TDap): Unknown Date of Influenza Vaccine: Aug 30, 2018 Seasonal Allergies Seasonal Allergies: No Past Medical History Surgeries: Yes (LAZY EYE CORRECTION x2, C/S x3, DXLS FOR OVARIAN CYST, EXC ENDOMETRIOSIS, ) Section, Eye Surgery Respiratory: No Cardiac: No Neurological: No Reproductive Disorders: Yes Female Reproductive Disorders: Endometriosis, Ovarian Cyst Sexually Transmitted Disease: No HIV/AIDS: No Genitourinary: Yes (OCCASIONALLY, HX BLADDER STRETCHED CHILD) UTI-Chronic Gastrointestinal: Yes Gastroesophageal Reflux, Chronic Constipation Musculoskeletal: No Endocrine: No HEENT: Yes (GLASSES/CONTACTS) Loss of Vision: Bilateral Hearing Impairment: Denies Cancer: Yes Lymphoma Psychosocial: No Integumentary: No Blood Disorders: No Adverse Reaction/Blood Tranf: No (N/A) Physical Exam Vital Signs Capillary Refill : Height, Weight, BMI Height: 5'6.50" Weight: 180lbs. 0.0oz. 81.912444gx; 28.6 BMI Method: General Appearance: No Apparent Distress, WD/WN Eyes: Bilateral Eye Normal Inspection, Bilateral Eye PERRL, Bilateral Eye EOMI HEENT: PERRL/EOMI, TMs Normal, Normal ENT Inspection, Pharynx Normal, Other Neck: Full Range of Motion Respiratory: Chest Non Tender, Lungs Clear (no sinus tenderness to palpation), Other (no redness or swelling over port site.) Cardiovascular: Regular Rate, Rhythm, No Edema Gastrointestinal: Normal Bowel Sounds, Non Tender, Soft Back: Normal Inspection, No CVA Tenderness Neurologic/Psychiatric: Alert, Oriented x3, No Motor/Sensory Deficits, Normal 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, 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 Norm as Tested Focused Exam Sepsis Stage: Ruled Out Lactate Level 05/14/19 16:35: Lactic Acid Level 1.70 Lactic Acid Level Laboratory Tests Test 05/14/19 16:35 Lactic Acid Level 1.70 MMOL/L (0.50-2.00) Progress/Results/Core Measures Suspected Sepsis SIRS Temperature: Pulse: Respiratory Rate: Laboratory Tests 05/14/19 16:35: White Blood Count 6.1 Blood Pressure / Mean: 05/14/19 16:35: Lactic Acid Level 1.70 Laboratory Tests 05/14/19 16:35: Creatinine 0.78, Platelet Count 348, Total Bilirubin 0.3 Results/Orders Lab Results Laboratory Tests Test 05/14/19 16:12 05/14/19 16:35 Range/Units Urine Color PALE YELLOW Urine Clarity CLEAR Urine pH 7.0 5-9 Urine Specific [place] 1.010 L 1.016-1.022 Urine Protein NEGATIVE NEGATIVE Urine Glucose (UA) NEGATIVE NEGATIVE Urine Ketones NEGATIVE NEGATIVE Urine Nitrite NEGATIVE NEGATIVE Urine Bilirubin NEGATIVE NEGATIVE Urine Urobilinogen 0.2 NORMAL MG/DL Urine Leukocyte Esterase NEGATIVE NEGATIVE Urine RBC (Auto) 1+ H NEGATIVE Urine RBC NONE /HPF Urine WBC NONE /HPF Urine Squamous Epithelial Cells 0-2 /HPF Urine Crystals NONE /LPF Urine Bacteria NEGATIVE /HPF Urine Casts NONE /LPF Urine Mucus NONE /LPF Urine Culture Indicated NO White Blood Count 6.1 4.3-11.0 10^3/uL Red Blood Count 4.30 L 4.35-5.85 10^6/uL Hemoglobin 11.1 L 11.5-16.0 G/DL Hematocrit 36 35-52 % Mean Corpuscular Volume 83 80-99 FL Mean Corpuscular Hemoglobin 26 25-34 PG Mean Corpuscular Hemoglobin Concent 31 L 32-36 G/DL Red Cell Distribution Width 16.4 H 10.0-14.5 % Platelet Count 348 130-400 10^3/uL Mean Platelet Volume 9.4 7.4-10.4 FL Neutrophils (%) (Auto) 88 H 42-75 % Lymphocytes (%) (Auto) 4 L 12-44 % Monocytes (%) (Auto) 7 0-12 % Eosinophils (%) (Auto) 1 0-10 % Basophils (%) (Auto) 1 0-10 % Neutrophils # (Auto) 5.4 1.8-7.8 X 10^3 Lymphocytes # (Auto) 0.2 L 1.0-4.0 X 10^3 Monocytes # (Auto) 0.4 0.0-1.0 X 10^3 Eosinophils # (Auto) 0.1 0.0-0.3 10^3/uL Basophils # (Auto) 0.0 0.0-0.1 10^3/uL Neutrophils % (Manual) 86 % Lymphocytes % (Manual) 5 % Monocytes % (Manual) 3 % Eosinophils % (Manual) 1 % Basophils % (Manual) 0 % Band Neutrophils 5 % Hypochromasia SLIGHT Anisocytosis SLIGHT Sodium Level 136 135-145 MMOL/L Potassium Level 4.0 3.6-5.0 MMOL/L Chloride Level 100 98-107 MMOL/L Carbon Dioxide Level 21 21-32 MMOL/L Anion Gap 15 H 5-14 MMOL/L Blood Urea Nitrogen 5 L 7-18 MG/DL Creatinine 0.78 0.60-1.30 MG/DL Estimat Glomerular Filtration Rate > 60 BUN/Creatinine Ratio 6 Glucose Level 114 H 70-105 MG/DL Lactic Acid Level 1.70 0.50-2.00 MMOL/L Calcium Level 8.9 8.5-10.1 MG/DL Corrected Calcium 8.9 8.5-10.1 MG/DL Total Bilirubin 0.3 0.1-1.0 MG/DL Aspartate Amino Transf (AST/SGOT) 27 5-34 U/L Alanine Aminotransferase (ALT/SGPT) 19 0-55 U/L Alkaline Phosphatase 93 40-136 U/L Total Protein 6.7 6.4-8.2 GM/DL Albumin 4.0 3.2-4.5 GM/DL My Orders Orders - EVANS LEYVA DO Cbc With Automated Diff (05/14/19 16:16) Comprehensive Metabolic Panel (05/14/19 16:16) Ua Culture If Indicated (05/14/19 16:16) Blood Culture (05/14/19 16:16) Chest 1 View Ap/Pa Only (05/14/19 16:16) Lactic Acid Analyzer (05/14/19 16:16) Manual Differential (05/14/19 16:35) Blood Culture (05/14/19 17:09) Rocephin 1 Gm Iv (1x Dose) (05/14/19 18:15) Vital Signs/I&O Capillary Refill : Departure Communication (Admissions) No clinical or identifiable source of infection on exam or review lab analysis. Patient does complain of sore throat is physical findings. Vital signs stable. Patient is not neutropenic. I discussed the patient possibility of fever being related to a line infection vs viral infection vs lymphoma vs unidentified source. Patient remains afebrile and asymptomatic in the emergency department. Admission offered for further observation and treatment. Patient prefers not to stay in the hospital. Attempts are made to contact the oncologist corrections corporal. Singe dose of IV Rocephin given. Will have the patient recheck in the ED in 24 hours redose if blood cultures remain negative with patient to follow up with oncologist Thursday for final culture result. Patient is instructed that if she becomes febrile, diaphoretic or other concerning symptoms she is to immediately return to the emergency department. Patient verbalizes understanding and agreement discharge instructions prior to departure. Impression Primary Impression: Fever Additional Impression: Lymphoma Disposition: HOME, SELF-CARE Condition: Stable Departure-Patient Inst. Referrals: TAMMIE RIVERA MD (PCP/Family) Primary Care Physician Patient Instructions: Fever, Adult (DC) Add. Discharge Instructions: You were evaluated in the emergency department for fever. The source of your fever has not been determined, but may be related to a bacterial infection. Please return to the emergency department in 24 hours for re-evaluation or sooner if symptoms worsen. If discharged from the ER tomorrow, you'll need to follow-up with your oncologist on Thursday for final blood culture results. All discharge instructions reviewed with patient and/or family. Voiced understanding. EVANS LEYVA DO May 14, 2019 17:33
[2019-05-14 17:39] LABS: BAND NEUTROPHILS 5 %; BASOPHILS % (MANUAL) 0 %; EOSINOPHILS % (MANUAL) 1 %; LYMPHOCYTES % (MANUAL) 5 %; MONOCYTES % (MANUAL) 3 %; NEUTROPHILS % (MANUAL) 86 %
[2019-05-14 17:40] LABS: ANISOCYTOSIS SLIGHT; HYPOCHROMASIA SLIGHT
[2019-05-14] MEDS ORDERED: cefTRIAXone FOR IV USE 1,000 MG in WATER (STERILE) FOR INJECTION 10 ML IV ONE (18:15)
[2019-05-14 18:47] VITALS: BP 137/87
--- OUTSIDE RECORDS SUMMARY | 2019-05-14 19:37 | XMS REPORT | Continuity of Care Document ---
Author Organization Unknown Address Unknown Allergies Active Description Code Type Severity Reaction Onset Reported/Identified Relationship to Patient Clinical Status Yes hydrocodone [id number] Drug Allergy Unknown N/A 04/26/2019 Yes No Known Drug Allergies [id number] Drug Allergy Unknown N/A 04/26/2019 Yes hydrocodone [id number] Drug Allergy Mild N/A 04/27/2019 Medications There is no data. Problems Date Dx Coded Attending Type Code Diagnosis Diagnosed By 02/12/2017 KATELYNN SPAULDING MD Ot R22.1 LOCALIZED SWELLING, MASS AND LUMP, NECK 02/12/2017 KATELYNN SPAULDING MD Ot Z01.818 ENCOUNTER FOR OTHER PREPROCEDURAL EXAMIN 02/13/2017 KATELYNN SPAULDING MD Ot R22.1 LOCALIZED SWELLING, MASS AND LUMP, NECK 02/13/2017 KATELYNN SPAULDING MD Ot Z01.818 ENCOUNTER FOR OTHER PREPROCEDURAL EXAMIN 02/19/2017 HARJINDER ZARATE MD, FACC, FACP CCDS Ot R07.89 OTHER CHEST PAIN 02/19/2017 HARJINDER ZARATE MD, FACCP CCDS Ot R94.31 ABNORMAL ELECTROCARDIOGRAM [ECG] [EKG] 02/19/2017 HARJINDER ZARATE MD, FACCP CCDS Ot Z86.79 PERSONAL HISTORY OF OTHER DISEASES OF 02/20/2017 KATELYNN SPAULDING MD Ot C82.91 FOLLICULAR LYMPHOMA, UNSP, NODES OF HEAD 02/20/2017 KATELYNN SPAULDING MD Ot R22.1 LOCALIZED SWELLING, MASS AND LUMP, NECK 02/25/2017 HARJINDER ZARATE MD, FACC, FACP CCDS Ot R07.89 OTHER CHEST PAIN 02/25/2017 HARJINDER ZARATE MD, FACC, FACP CCDS Ot R94.31 ABNORMAL ELECTROCARDIOGRAM [ECG] [EKG] 02/25/2017 HARJINDER ZARATE MD, FACC, FACP CCDS Ot Z86.79 PERSONAL HISTORY OF OTHER DISEASES OF 03/04/2017 KATELYNN SPAULDING MD Ot C82.91 FOLLICULAR LYMPHOMA, UNSP, NODES OF HEAD 03/17/2017 BRIAN, ANGELOAN N Ot C82.91 FOLLICULAR LYMPHOMA, UNSP, NODES OF HEAD 03/24/2017 TESSA PANTOJA LOCATED WITHIN [facility] CCDS Ot R07.89 OTHER CHEST PAIN 03/24/2017 TESSA PANTOJA LOCATED WITHIN [facility], [facility] CCDS Ot R94.31 ABNORMAL ELECTROCARDIOGRAM [ECG] [EKG] 03/24/2017 TESSA PANTOJA LOCATED WITHIN [facility], [facility] CCDS Ot Z86.79 PERSONAL HISTORY OF OTHER DISEASES OF 03/24/2017 ANGELO TORRESAN N Ot C82.91 FOLLICULAR LYMPHOMA, UNSP, NODES OF HEAD 03/25/2017 BRIAN, BOBAN N Ot C85.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, UNSPECIFIED, UNSPE 03/25/2017 BRIAN, BOBAN N Ot R22.2 LOCALIZED SWELLING, MASS AND LUMP, TRUNK 04/09/2017 BRIAN BOBAN N Ot C82.91 FOLLICULAR LYMPHOMA, UNSP, NODES OF HEAD 04/09/2017 BRIAN, BOBAN N Ot C85.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, UNSPECIFIED, UNSPE 04/09/2017 BRIAN, BOBAN N Ot R22.2 LOCALIZED SWELLING, MASS AND LUMP, TRUNK 06/11/2017 BRIAN, BOBAN N Ot C82.91 FOLLICULAR LYMPHOMA, UNSP, NODES OF HEAD 06/11/2017 BRIAN, BOBAN N Ot K21.9 GASTRO-ESOPHAGEAL REFLUX DISEASE WITHOUT 06/11/2017 BRIAN, BOBAN N Ot Z79.899 OTHER [facility] (CURRENT) DRUG THERAPY 06/12/2017 BRIAN BOBAN N Ot C82.91 FOLLICULAR LYMPHOMA, UNSP, NODES OF HEAD 06/12/2017 BRIAN, BOBAN N Ot K21.9 GASTRO-ESOPHAGEAL REFLUX DISEASE WITHOUT 06/12/2017 BRIAN, BOBAN N Ot Z79.899 OTHER [employer] (CURRENT) DRUG THERAPY 06/17/2017 BRIAN, BOBAN N Ot C82.91 FOLLICULAR LYMPHOMA, UNSP, NODES OF HEAD 06/17/2017 BRIAN, BOBAN N Ot K21.9 GASTRO-ESOPHAGEAL REFLUX DISEASE WITHOUT 06/17/2017 BRIAN, BOBAN N Ot Z79.899 OTHER [employer] (CURRENT) DRUG THERAPY 06/25/2017 BRIAN, BOBAN N Ot C82.91 FOLLICULAR LYMPHOMA, UNSP, NODES OF HEAD 06/30/2017 BRIANANGELO RENEEAN N Ot C82.91 FOLLICULAR LYMPHOMA, UNSP, NODES OF HEAD 07/28/2017 TESSA PANTOJA LOCATED WITHIN [facility] CCDS Ot R07.89 OTHER CHEST PAIN 07/28/2017 TESSA PANTOJA FAC, [facility] CCDS Ot R94.31 ABNORMAL ELECTROCARDIOGRAM [ECG] [EKG] 07/28/2017 TESSA PANTOJA LOCATED WITHIN [facility] CCDS Ot Z86.79 PERSONAL HISTORY OF OTHER DISEASES OF TH 07/28/2017 BRIAN ANGELOAN N Ot C85.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, UNSPECIFIED, UNSPE 07/28/2017 BRIAN, BOBAN N Ot R22.2 LOCALIZED SWELLING, MASS AND LUMP, TRUNK 07/28/2017 BRIAN BOBAN N Ot C82.91 FOLLICULAR LYMPHOMA, UNSP, NODES OF HEAD 08/05/2017 BRIAN, BOBAN N Ot C82.91 FOLLICULAR LYMPHOMA, UNSP, NODES OF HEAD 08/12/2017 BRIAN, BOBAN N Ot C82.18 FOLLICULAR LYMPHOMA GRADE II, LYMPH NODE 08/22/2017 BRIAN, BOBAN N Ot C82.91 FOLLICULAR LYMPHOMA, UNSP, NODES OF HEAD 08/22/2017 BRIAN, BOBAN N Ot K21.9 GASTRO-ESOPHAGEAL REFLUX DISEASE WITHOUT 08/22/2017 BRIAN, BOBAN N Ot Z79.899 OTHER [facility] (CURRENT) DRUG THERAPY 11/12/2017 BRIAN, BOBAN N Ot C82.91 FOLLICULAR LYMPHOMA, UNSP, NODES OF HEAD 11/12/2017 BRIAN, BOBAN N Ot K21.9 GASTRO-ESOPHAGEAL REFLUX DISEASE WITHOUT 11/12/2017 BRIAN, BOBAN N Ot Z79.899 OTHER [employer] (CURRENT) DRUG THERAPY 12/02/2017 BRIAN, BOBAN N Ot C82.91 FOLLICULAR LYMPHOMA, UNSP, NODES OF HEAD 12/02/2017 BRIAN, BOBAN N Ot K21.9 GASTRO-ESOPHAGEAL REFLUX DISEASE WITHOUT 12/02/2017 BRIAN, BOBAN N Ot Z79.899 OTHER [employer] (CURRENT) DRUG THERAPY 02/08/2018 BRIAN, BOBAN N Ot C82.91 FOLLICULAR LYMPHOMA, UNSP, NODES OF HEAD 02/08/2018 BRIAN, BOBAN N Ot K21.9 GASTRO-ESOPHAGEAL REFLUX DISEASE WITHOUT 02/08/2018 BRIAN, ANGELOAN N Ot Z79.899 OTHER [employer] (CURRENT) DRUG THERAPY 03/18/2018 TESSA PANTOJA FAC, HARJINDER [facility] CCDS Ot R07.89 OTHER CHEST PAIN 03/18/2018 TESSA PANTOJA [facility], [facility] CCDS Ot R94.31 ABNORMAL ELECTROCARDIOGRAM [ECG] [EKG] 03/18/2018 TESSA MAYORGA, HARJINDER [facility] CCDS Ot Z86.79 PERSONAL HISTORY OF OTHER DISEASES OF TH 03/18/2018 BRIAN RICKY N Ot C85.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, UNSPECIFIED, UNSPE 03/18/2018 BRIAN RICKY N Ot R22.2 LOCALIZED SWELLING, MASS AND LUMP, TRUNK 03/18/2018 BRIANRICKY N Ot C82.18 FOLLICULAR LYMPHOMA GRADE II, LYMPH NODE 04/07/2018 BRIANRICKY N Ot C82.18 FOLLICULAR LYMPHOMA GRADE II, LYMPH NODE 04/07/2018 BRIANRICKY N Ot J06.9 ACUTE UPPER RESPIRATORY INFECTION, UNSPE 04/07/2018 BRIANRICKY N Ot K21.9 GASTRO-ESOPHAGEAL REFLUX DISEASE WITHOUT 04/07/2018 BRIAN, BOBAN N Ot Z79.899 OTHER [facility] (CURRENT) DRUG THERAPY 06/16/2018 BRIANRICKY N Ot C82.18 FOLLICULAR LYMPHOMA GRADE II, LYMPH NODE 06/16/2018 BRIANRICKY N Ot J06.9 ACUTE UPPER RESPIRATORY INFECTION, UNSPE 06/16/2018 BRIANANGELOAN N Ot K21.9 GASTRO-ESOPHAGEAL REFLUX DISEASE WITHOUT 06/16/2018 BRIAN, BOBAN N Ot Z79.899 OTHER [facility] (CURRENT) DRUG THERAPY 06/17/2018 BRIANRICKY N Ot C82.18 FOLLICULAR LYMPHOMA GRADE II, LYMPH NODE 06/17/2018 BRIANRICKY N Ot J06.9 ACUTE UPPER RESPIRATORY INFECTION, UNSPE 06/17/2018 BRIAN BOBAN N Ot K21.9 GASTRO-ESOPHAGEAL REFLUX DISEASE WITHOUT 06/17/2018 BRIAN, BOBAN N Ot Z79.899 OTHER [facility] (CURRENT) DRUG THERAPY 07/23/2018 BRIANRICKY N Ot C82.18 FOLLICULAR LYMPHOMA GRADE II, LYMPH NODE 07/23/2018 BRIANRICKY N Ot J06.9 ACUTE UPPER RESPIRATORY INFECTION, UNSPE 07/23/2018 BRIAN, BOBAN N Ot K21.9 GASTRO-ESOPHAGEAL REFLUX DISEASE WITHOUT 07/23/2018 BRIAN, BOBAN N Ot Z79.899 OTHER [facility] (CURRENT) DRUG THERAPY 08/04/2018 BRIAN, BOBAN N Ot C82.18 FOLLICULAR LYMPHOMA GRADE II, LYMPH NODE 08/04/2018 BRIAN, BOBAN N Ot J06.9 ACUTE UPPER RESPIRATORY INFECTION, UNSPE 08/04/2018 BRIAN, BOBAN N Ot K21.9 GASTRO-ESOPHAGEAL REFLUX DISEASE WITHOUT 08/04/2018 BRIAN, BOBAN N Ot Z79.899 OTHER [employer] (CURRENT) DRUG THERAPY 08/23/2018 BRIAN, BOBAN N Ot C82.18 FOLLICULAR LYMPHOMA GRADE II, LYMPH NODE 08/23/2018 BRIAN, BOBAN N Ot J06.9 ACUTE UPPER RESPIRATORY INFECTION, UNSPE 08/23/2018 BRIAN, BOBAN N Ot K21.9 GASTRO-ESOPHAGEAL REFLUX DISEASE WITHOUT 08/23/2018 BRIAN, BOBAN N Ot Z79.899 OTHER [facility] (CURRENT) DRUG THERAPY 08/23/2018 BRIAN, BOBAN N Ot C82.18 FOLLICULAR LYMPHOMA GRADE II, LYMPH NODE 08/23/2018 BRIAN, BOBAN N Ot J06.9 ACUTE UPPER RESPIRATORY INFECTION, UNSPE 08/23/2018 BRIAN, BOBAN N Ot K21.9 GASTRO-ESOPHAGEAL REFLUX DISEASE WITHOUT 08/23/2018 BRIAN, BOBAN N Ot Z79.899 OTHER [facility] (CURRENT) DRUG THERAPY 11/08/2018 BRIAN, BOBAN N Ot C82.18 FOLLICULAR LYMPHOMA GRADE II, LYMPH NODE 11/08/2018 BRIAN, BOBAN N Ot K21.9 GASTRO-ESOPHAGEAL REFLUX DISEASE WITHOUT 11/08/2018 BRIAN, BOBAN N Ot Z79.899 OTHER [employer] (CURRENT) DRUG THERAPY 01/04/2019 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899 OTHER [facility] (CURRENT) DRUG THERAPY 01/11/2019 BRIAN BOBAN N Ot C82.18 FOLLICULAR LYMPHOMA GRADE II, LYMPH NODE 01/11/2019 BRIAN, BOBAN N Ot K21.9 GASTRO-ESOPHAGEAL REFLUX DISEASE WITHOUT 01/11/2019 BRIAN, BOBAN N Ot Z79.899 OTHER [facility] (CURRENT) DRUG THERAPY 01/20/2019 BLACKWELLОЛЕГ CYLINDER PRESS OPERATOR APPRENTICE Ot C82.18 FOLLICULAR LYMPHOMA GRADE II, LYMPH NODE 01/20/2019 ОЛЕГ BLACKWELL CYLINDER 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 Ot R22.0 LOCALIZED SWELLING, MASS AND LUMP, HEAD 02/07/2019 BRIAN, BOBAN N Ot C82.18 FOLLICULAR LYMPHOMA GRADE II, LYMPH NODE 02/07/2019 BRIAN BOBAN N Ot K21.9 GASTRO-ESOPHAGEAL REFLUX DISEASE WITHOUT 02/07/2019 BRIAN, BOBAN N Ot Z79.899 OTHER [employer] (CURRENT) DRUG THERAPY 04/11/2019 BRIAN BOBAN N Ot C82.18 FOLLICULAR LYMPHOMA GRADE II, LYMPH NODE 04/11/2019 BRIAN BOBRENETTA N Ot K21.9 GASTRO-ESOPHAGEAL REFLUX DISEASE WITHOUT 04/11/2019 BRIAN, BOBAN N Ot Z79.899 OTHER [employer] (CURRENT) DRUG THERAPY 04/12/2019 BRIAN BOBAN N Ot C82.18 FOLLICULAR LYMPHOMA GRADE II, LYMPH NODE 04/12/2019 BRIAN BOBAN N Ot K21.9 GASTRO-ESOPHAGEAL REFLUX DISEASE WITHOUT 04/12/2019 BRIAN, BOBAN N Ot Z79.899 OTHER [employer] (CURRENT) DRUG THERAPY 04/17/2019 BRIAN, BOBAN N Ot C82.18 FOLLICULAR LYMPHOMA GRADE II, LYMPH NODE 04/17/2019 BRIAN BOBAN N Ot K21.9 GASTRO-ESOPHAGEAL REFLUX DISEASE WITHOUT 04/17/2019 BRIAN, BOBAN N Ot Z79.899 OTHER [facility] (CURRENT) DRUG THERAPY 04/20/2019 BRIAN, BOBAN N Ot C82.18 FOLLICULAR LYMPHOMA GRADE II, LYMPH NODE 04/26/2019 BRIAN, BOBAN N Ot C82.18 FOLLICULAR LYMPHOMA GRADE II, LYMPH NODE 04/26/2019 BRIAN, BOBAN N Ot K21.9 GASTRO-ESOPHAGEAL REFLUX DISEASE WITHOUT 04/26/2019 BRIAN, BOBAN N Ot Z79.899 OTHER [facility] (CURRENT) DRUG THERAPY 04/26/2019 DELMAN DO, TANJA B Ot Z01.818 ENCOUNTER FOR OTHER PREPROCEDURAL EXAMIN 04/26/2019 BRIAN, BOBAN N Ot C82.18 FOLLICULAR LYMPHOMA GRADE II, LYMPH NODE 04/26/2019 BRIAN, BOBAN N Ot K21.9 GASTRO-ESOPHAGEAL REFLUX DISEASE WITHOUT 04/26/2019 BRIAN, BOBAN N Ot Z79.899 OTHER [facility] (CURRENT) DRUG THERAPY 04/26/2019 BRIAN, BOBAN N Ot C82.18 FOLLICULAR LYMPHOMA GRADE II, LYMPH NODE 04/26/2019 BRIAN, BOBAN N Ot K21.9 GASTRO-ESOPHAGEAL REFLUX DISEASE WITHOUT 04/26/2019 BRIAN, BOBAN N Ot Z79.899 OTHER [employer] (CURRENT) DRUG THERAPY 04/27/2019 BRIAN, BOBAN N Ot C82.18 FOLLICULAR LYMPHOMA GRADE II, LYMPH NODE 04/27/2019 BRIAN, BOBAN N Ot K21.9 GASTRO-ESOPHAGEAL REFLUX DISEASE WITHOUT 04/27/2019 BRIAN, BOBAN N Ot Z79.899 OTHER [facility] (CURRENT) DRUG THERAPY 04/27/2019 DELMAN DO, TANJA B Ot C82.18 FOLLICULAR LYMPHOMA GRADE II, LYMPH NODE 04/27/2019 DELMAN DO, TANJA B Ot I87.2 VENOUS INSUFFICIENCY (CHRONIC) (PERIPHER 04/27/2019 DELMAN DO, TANJA B Ot K21.9 GASTRO-ESOPHAGEAL REFLUX DISEASE WITHOUT 04/27/2019 DELMAN DO, TANJA B Ot Z11.2 ENCOUNTER FOR SCREENING FOR OTHER BACTER 04/27/2019 DELMAN DO, TANJA B Ot Z88.5 ALLERGY STATUS TO NARCOTIC AGENT STATUS 05/02/2019 DELMAN DO, TANJA B Ot C82.18 FOLLICULAR LYMPHOMA GRADE II, LYMPH NODE 05/02/2019 DELMAN DO, TANJA B Ot I87.2 VENOUS INSUFFICIENCY (CHRONIC) (PERIPHER 05/02/2019 DELMAN DO, TANJA B Ot K21.9 GASTRO-ESOPHAGEAL REFLUX DISEASE WITHOUT 05/02/2019 TANJA HASTINGS DO Ot Z11.2 ENCOUNTER FOR SCREENING FOR OTHER BACTER 05/02/2019 TANJA HASTINGS DO Ot Z88.5 ALLERGY STATUS TO NARCOTIC AGENT STATUS 05/04/2019 RICKY TORRES Ot C82.18 FOLLICULAR LYMPHOMA GRADE II, LYMPH NODE 05/05/2019 RICKY TORRES Ot C82.18 FOLLICULAR LYMPHOMA GRADE II, LYMPH NODE 05/05/2019 RICKY TORRES Ot K21.9 GASTRO-ESOPHAGEAL REFLUX DISEASE WITHOUT 05/05/2019 RICKY TORRES Ot Z79.899 OTHER [facility] (CURRENT) DRUG THERAPY Procedures There is no data. Results Test Result Range Urine beta human chorionic gonadotropin (hCG) measurement - 02/20/17 06:55 Urine beta human chorionic gonadotropin (hCG) measurement NEGATIVE NEGATIVE Methicillin resistant Staphylococcus aureus (MRSA) screening culture - 02/20/17 07:00 Methicillin resistant Staphylococcus aureus (MRSA) screening culture NEG NRG CULTURE, URINE - 01/30/19 00:00 CULTURE, URINE, ROUTINE SEE NOTE NRG Methicillin resistant Staphylococcus aureus (MRSA) screening culture - 04/27/19 08:40 Methicillin resistant Staphylococcus aureus (MRSA) screening culture NEG NRG Whole blood basic metabolic panel - 05/09/19 11:00 Serum or plasma sodium measurement (moles/volume) 138 mmol/L 135-145 Serum or plasma potassium measurement (moles/volume) 4.4 mmol/L 3.6-5.0 Serum or plasma chloride measurement (moles/volume) 100 mmol/L 98-107 Carbon dioxide 24 mmol/L 21-32 Serum or plasma anion gap determination (moles/volume) 14 mmol/L 5-14 Serum or plasma urea nitrogen measurement (mass/volume) 7 mg/dL 7-18 Serum or plasma creatinine measurement (mass/volume) 0.81 mg/dL 0.60-1.30 Serum or plasma urea nitrogen/creatinine mass ratio 9 NRG Serum or plasma creatinine measurement with calculation of estimated glomerular filtration rate > NRG Serum or plasma glucose measurement (mass/volume) 104 mg/dL 70-105 Serum or plasma calcium measurement (mass/volume) 9.5 mg/dL 8.5-10.1 Complete blood count (CBC) with automated white blood cell (WBC) differential - 05/09/19 11:00 Blood leukocytes automated count (number/volume) 6.6 10*3/uL 4.3-11.0 Blood erythrocytes automated count (number/volume) 4.59 10*6/uL 4.35-5.85 Venous blood hemoglobin measurement (mass/volume) 11.8 g/dL 11.5-16.0 Blood hematocrit (volume fraction) 38 % 35-52 Automated erythrocyte mean corpuscular volume 83 [foz_us] 80-99 Automated erythrocyte mean corpuscular hemoglobin (mass per erythrocyte) 26 pg 25-34 Automated erythrocyte mean corpuscular hemoglobin concentration measurement (mass/volume) 31 g/dL 32-36 Automated erythrocyte distribution width ratio 15.3 % 10.0- 14.5 Automated blood platelet count (count/volume) 490 10*3/uL 130-400 Automated blood platelet mean volume measurement 9.4 [foz_us] 7.4-10.4 Automated blood neutrophils/100 leukocytes 77 % 42-75 Automated blood lymphocytes/100 leukocytes 10 % 12-44 Blood monocytes/100 leukocytes 9 % 0-12 Automated blood eosinophils/100 leukocytes 3 % 0-10 Automated blood basophils/100 leukocytes 1 % 0-10 Blood neutrophils automated count (number/volume) 5.1 10*3 1.8-7.8 Blood lymphocytes automated count (number/volume) 0.7 10*3 1.0-4.0 Blood monocytes automated count (number/volume) 0.6 10*3 0.0- 1.0 Automated eosinophil count 0.2 10*3/uL 0.0-0.3 Automated blood basophil count (count/volume) 0.1 10*3/uL 0.0-0.1 Encounters ACCT No. Visit Date/Time Discharge Status Pt. Type Provider Facility Loc./Unit Complaint [id number] 03/09/2019 14:15:00 03/09/2019 23:59:59 [facility] [id number] 01/30/2019 14:10:00 Document Registration [id number] 05/09/2019 10:51:00 05/09/2019 23:59:59 CLS Outpatient ОЛЕГ BLACKWELL [facility] LAB FS C82.18 [id number] 05/04/2019 13:09:00 05/04/2019 23:59:59 CLS Outpatient BRIANRICKY N [facility] ONC [id number] 04/27/2019 08:05:00 04/27/2019 12:53:00 DIS Outpatient TANJA HASTINGS DO B [facility] SDC LYMPHOMA [id number] 04/26/2019 12:59:00 04/26/2019 14:39:00 DIS Outpatient TANJA HASTINGS DO B [facility] PREOP LYMPHOMA [id number] 04/20/2019 11:18:00 04/20/2019 23:59:59 CLS Outpatient BRIANRICKY RENEE N [facility] RAD LYMPHOMA [id number] 04/12/2019 10:18:00 04/12/2019 23:59:59 CLS Preadmit RICKY TORRES N [facility] RAD LYMPHOMA [id number] 01/11/2019 08:42:00 04/11/2019 00:01:00 DIS Outpatient BRIAN BOBRENETTA N [facility] ONC [id number] 10/07/2018 08:24:00 01/05/2019 00:01:00 DIS Outpatient RICKY TORRES N [facility] ONC [id number] 01/04/2019 12:22:00 01/04/2019 23:59:59 CLS Outpatient ОЛЕГ BLACKWELL [facility] RAD IMAGING STUDY TO RESTAGE NEOPLASM [id number] 07/07/2018 09:14:00 07/23/2018 00:01:00 DIS Outpatient BRIAN, BOBAN N [facility] ONC [id number] 03/18/2018 15:06:00 06/16/2018 00:01:00 DIS Outpatient BRIAN, BOBRENETTA N [facility] ONC [id number] 11/10/2017 12:49:00 02/08/2018 00:01:00 DIS Outpatient BRIAN, BOBRENETTA N [facility] ONC [id number] 08/18/2017 13:04:00 08/22/2017 00:01:00 DIS Outpatient BRIAN, BOBRENETTA N [facility] ONC [id number] 07/29/2017 13:12:00 07/29/2017 23:59:59 CLS Outpatient ANGELO TORRESRENETTA Yost [facility] RAD LYMPHOMA C82.18 [id number] 03/26/2017 08:25:00 06/11/2017 00:01:00 DIS Outpatient BRIANRICKY RENEE [facility] ONC [id number] 03/24/2017 07:44:00 03/24/2017 23:59:59 CLS Outpatient BRIAN ANGELORENETTA Yost [facility] RAD C85.90 [id number] 02/20/2017 06:48:00 02/20/2017 13:40:00 DIS [facility] [id number] 02/17/2017 12:15:00 02/17/2017 23:59:59 CLS Outpatient TESSA PANTOJA FACC, HARJINDER VERMA CCDS [facility] CARD CHEST DISCOMFORT,ABNORMAL ECG,H/O PERICARDITIS [id number] 02/12/2017 05:39:00 02/12/2017 15:17:00 DIS Outpatient KATELYNN SPAULDING MD [facility] PREOP RIGHT NECK MASS
[2019-05-14] MEDS ORDERED: VALA500T (20:18)
[2019-05-14] MEDS ORDERED: ALLO300T2 (20:18)
[2019-05-14] MEDS ORDERED: ONDA8TAB12 (20:18)
--- NOTE | 2019-05-15 11:30 | NUR ---
Follow up call: Call to patient to inquire on her chief c/o/ER visit 05/14/19. Pt reports feeling better and was actually only once noted again with a fever up to 100.0 last night that broke with a Tylenol dose taken. Pt states no new symptoms and eating and drinking well. Was advised the on duty physician Dr Paulson has had RN check on the current blood culture bottles that are in [facility] of [place]. Bottles rec'd and began incubating before 2200 hr 05/14/19 and at this time are still no growth on exam as they continue to be monitored. The Micro dept will call us if the bottles begin a growth. Dr Paulson has left it to patient decision about a re-evaluation as if no further chief c/o of new or worsening sx, the patient may call the [facility] tomorrow to advice of the ER visit and blood cultures at the lab for further guidance/recommendations. Pt to return to ED prn any concerns or problems but is not being requested at this time to come at 24 hr caleb for repeat ER visit if doing fine and continued no growth. Pt verbalized appreciation of the call and will not return unless there is notification of positive blood cultures and will f[facility]. Pt states she will return to ER if worsening/changing sx.
== END 2019-05-14 18:47 | disposition home or self-care (01) ==
LOC: EDUNIT# 15:27 → ER FS 15:29
DX: C85.90 Non-Hodgkin lymphoma, unspecified, unspecified site (principal); K21.9 Gastro-esophageal reflux disease without esophagitis; Z87.19 Personal history of other diseases of the digestive system; Z88.5 Allergy status to narcotic agent; Z87.440 Personal history of urinary (tract) infections
CPT/HCPCS: 36415; 71045; 80053; 81000; 83605; 85007; 85027; 87040

== ENCOUNTER → 2019-06-20 | Outpatient (CLI) | payer BC ==
[~2019-06-20] MED LIST changes: +ALLO300T2; +ONDA8TAB12; +VALA500T
[2019-06-20 11:54] LABS: BILIRUBIN,URINE NEGATIVE (NEGATIVE); CLARITY,URINE CLEAR; COLOR,URINE PALE YELLOW; GLUCOSE, URINE (UA) NEGATIVE (NEGATIVE); KETONES,URINE NEGATIVE (NEGATIVE); NITRITE,URINE NEGATIVE (NEGATIVE); PH,URINE 7.5 (5-9); PROTEIN,URINE NEGATIVE (NEGATIVE); UROBILINOGEN,URINE 0.2 MG/DL (NORMAL)
[2019-06-20 11:55] LABS: BACTERIA,URINE TRACE /HPF; LEUKOCYTE ESTERASE ,URINE 1+ (NEGATIVE); RBC,URINE RARE /HPF; SQUAMOUS EPITHELIAL CELL,UR 0-2 /HPF
== END ==
LOC: LAB FS 11:24
PROVIDERS: ATTEND Nurse Practitioner Adult Health
DX: C85.90 Non-Hodgkin lymphoma, unspecified, unspecified site (principal); R35.0 Frequency of micturition
CPT/HCPCS: 36415; 81000; 83615; 87088

== ENCOUNTER 2019-06-28 12:46 | Outpatient (RCR) | payer BC ==
[2019-04-12 09:21] LABS: BASOPHILS % (AUTO) 0 % (0-10); EOSINOPHILS # (AUTO) 0.1 10^3/uL (0.0-0.3); EOSINOPHILS % (AUTO) 1 % (0-10); HEMATOCRIT 37 % (35-52); HEMOGLOBIN 12.1 G/DL (11.5-16.0); LYMPHOCYTES # (AUTO) 1.8 X 10^3 (1.0-4.0); LYMPHOCYTES % (AUTO) 24 % (12-44); MEAN CORPUSCULAR HEMOGLOBIN 26 PG (25-34); MEAN CORPUSCULAR HGB CONC 33 G/DL (32-36); MEAN CORPUSCULAR VOLUME 79 FL (80-99); MEAN PLATELET VOLUME 9.2 FL (7.4-10.4); MONOCYTES # (AUTO) 0.6 X 10^3 (0.0-1.0); MONOCYTES % (AUTO) 8 % (0-12); NEUTROPHILS # (AUTO) 4.9 X 10^3 (1.8-7.8); NEUTROPHILS % (AUTO) 67 % (42-75); PLATELET COUNT 536 10^3/uL (130-400); RED CELL DISTRIBUTION WIDTH 15.1 % (10.0-14.5); WHITE BLOOD COUNT 7.3 10^3/uL (4.3-11.0)
[2019-04-12 09:52] LABS: ALANINE AMINOTRANSFERASE 16 U/L (0-55); ALBUMIN 4.3 GM/DL (3.2-4.5); ALKALINE PHOSPHATASE 94 U/L (40-136); BILIRUBIN,TOTAL 0.3 MG/DL (0.1-1.0); BUN/CREATININE RATIO 10; CALCIUM 9.7 MG/DL (8.5-10.1); CARBON DIOXIDE 22 MMOL/L (21-32); CHLORIDE 107 MMOL/L (98-107); CREATININE SERUM 0.77 MG/DL (0.60-1.30); GFR ESTIMATED > 60; GLUCOSE 90 MG/DL (70-105); POTASSIUM 4.7 MMOL/L (3.6-5.0); SODIUM 140 MMOL/L (135-145); TOTAL PROTEIN 7.1 GM/DL (6.4-8.2)
[2019-04-13 14:48] LABS: HEPATITIS C ANTIBODY C Non-Reactive (Non-Reactive)
[2019-05-03 09:07] LABS: BASOPHILS % (AUTO) 0 % (0-10); EOSINOPHILS # (AUTO) 0.1 10^3/uL (0.0-0.3); EOSINOPHILS % (AUTO) 2 % (0-10); HEMATOCRIT 36 % (35-52); HEMOGLOBIN 11.2 G/DL (11.5-16.0); LYMPHOCYTES # (AUTO) 1.9 X 10^3 (1.0-4.0); LYMPHOCYTES % (AUTO) 27 % (12-44); MEAN CORPUSCULAR HEMOGLOBIN 26 PG (25-34); MEAN CORPUSCULAR HGB CONC 32 G/DL (32-36); MEAN CORPUSCULAR VOLUME 81 FL (80-99); MEAN PLATELET VOLUME 9.6 FL (7.4-10.4); MONOCYTES # (AUTO) 0.7 X 10^3 (0.0-1.0); MONOCYTES % (AUTO) 10 % (0-12); NEUTROPHILS # (AUTO) 4.3 X 10^3 (1.8-7.8); NEUTROPHILS % (AUTO) 61 % (42-75); PLATELET COUNT 493 10^3/uL (130-400); RED CELL DISTRIBUTION WIDTH 15.3 % (10.0-14.5)
[2019-05-03 09:31] LABS: ALANINE AMINOTRANSFERASE 12 U/L (0-55); ALKALINE PHOSPHATASE 91 U/L (40-136); BILIRUBIN,TOTAL 0.2 MG/DL (0.1-1.0); BUN/CREATININE RATIO 8; CALCIUM 9.3 MG/DL (8.5-10.1); CARBON DIOXIDE 21 MMOL/L (21-32); CHLORIDE 107 MMOL/L (98-107); CREATININE SERUM 0.85 MG/DL (0.60-1.30); GFR ESTIMATED > 60; GLUCOSE 84 MG/DL (70-105); POTASSIUM 4.3 MMOL/L (3.6-5.0); SODIUM 139 MMOL/L (135-145); TOTAL PROTEIN 6.9 GM/DL (6.4-8.2)
[2019-05-17 13:44] LABS: BASOPHILS % (AUTO) 1 % (0-10); EOSINOPHILS # (AUTO) 0.1 10^3/uL (0.0-0.3); EOSINOPHILS % (AUTO) 3 % (0-10); HEMATOCRIT 35 % (35-52); HEMOGLOBIN 11.2 G/DL (11.5-16.0); LYMPHOCYTES # (AUTO) 0.6 X 10^3 (1.0-4.0); LYMPHOCYTES % (AUTO) 11 % (12-44); MEAN CORPUSCULAR HEMOGLOBIN 26 PG (25-34); MEAN CORPUSCULAR HGB CONC 32 G/DL (32-36); MEAN CORPUSCULAR VOLUME 81 FL (80-99); MEAN PLATELET VOLUME 9.7 FL (7.4-10.4); MONOCYTES # (AUTO) 0.6 X 10^3 (0.0-1.0); MONOCYTES % (AUTO) 11 % (0-12); NEUTROPHILS # (AUTO) 3.7 X 10^3 (1.8-7.8); NEUTROPHILS % (AUTO) 74 % (42-75); PLATELET COUNT 291 10^3/uL (130-400); RED CELL DISTRIBUTION WIDTH 16.8 % (10.0-14.5)
[2019-05-30 09:30] LABS: BASOPHILS # (AUTO) 0.1 10^3/uL (0.0-0.1); BASOPHILS % (AUTO) 1 % (0-10); EOSINOPHILS # (AUTO) 0.1 10^3/uL (0.0-0.3); EOSINOPHILS % (AUTO) 3 % (0-10); HEMATOCRIT 35 % (35-52); LYMPHOCYTES # (AUTO) 0.8 X 10^3 (1.0-4.0); LYMPHOCYTES % (AUTO) 16 % (12-44); MEAN CORPUSCULAR HEMOGLOBIN 26 PG (25-34); MEAN CORPUSCULAR HGB CONC 32 G/DL (32-36); MEAN CORPUSCULAR VOLUME 80 FL (80-99); MEAN PLATELET VOLUME 8.5 FL (7.4-10.4); MONOCYTES # (AUTO) 0.7 X 10^3 (0.0-1.0); MONOCYTES % (AUTO) 14 % (0-12); NEUTROPHILS # (AUTO) 3.2 X 10^3 (1.8-7.8); NEUTROPHILS % (AUTO) 66 % (42-75); PLATELET COUNT 508 10^3/uL (130-400); RED CELL DISTRIBUTION WIDTH 16.6 % (10.0-14.5); WHITE BLOOD COUNT 4.8 10^3/uL (4.3-11.0)
[2019-05-30 09:54] LABS: ALANINE AMINOTRANSFERASE 15 U/L (0-55); ALBUMIN 4.1 GM/DL (3.2-4.5); ALKALINE PHOSPHATASE 76 U/L (40-136); BILIRUBIN,TOTAL 0.3 MG/DL (0.1-1.0); BUN/CREATININE RATIO 14; CALCIUM 9.5 MG/DL (8.5-10.1); CARBON DIOXIDE 23 MMOL/L (21-32); CHLORIDE 107 MMOL/L (98-107); CREATININE SERUM 0.73 MG/DL (0.60-1.30); GFR ESTIMATED > 60; GLUCOSE 88 MG/DL (70-105); POTASSIUM 4.2 MMOL/L (3.6-5.0); SODIUM 137 MMOL/L (135-145); TOTAL PROTEIN 6.8 GM/DL (6.4-8.2)
[2019-06-27 10:19] LABS: BASOPHILS % (AUTO) 0 % (0-10); EOSINOPHILS # (AUTO) 0.1 10^3/uL (0.0-0.3); EOSINOPHILS % (AUTO) 3 % (0-10); HEMATOCRIT 36 % (35-52); HEMOGLOBIN 11.3 G/DL (11.5-16.0); LYMPHOCYTES # (AUTO) 0.5 X 10^3 (1.0-4.0); LYMPHOCYTES % (AUTO) 11 % (12-44); MEAN CORPUSCULAR HEMOGLOBIN 26 PG (25-34); MEAN CORPUSCULAR HGB CONC 32 G/DL (32-36); MEAN CORPUSCULAR VOLUME 81 FL (80-99); MONOCYTES # (AUTO) 0.6 X 10^3 (0.0-1.0); MONOCYTES % (AUTO) 14 % (0-12); NEUTROPHILS % (AUTO) 72 % (42-75); PLATELET COUNT 488 10^3/uL (130-400); RED CELL DISTRIBUTION WIDTH 16.5 % (10.0-14.5); WHITE BLOOD COUNT 4.2 10^3/uL (4.3-11.0)
[2019-06-27 10:45] LABS: ALANINE AMINOTRANSFERASE 13 U/L (0-55); ALBUMIN 4.1 GM/DL (3.2-4.5); ALKALINE PHOSPHATASE 78 U/L (40-136); BILIRUBIN,TOTAL 0.2 MG/DL (0.1-1.0); BUN/CREATININE RATIO 11; CALCIUM 9.4 MG/DL (8.5-10.1); CARBON DIOXIDE 21 MMOL/L (21-32); CHLORIDE 108 MMOL/L (98-107); CREATININE SERUM 0.79 MG/DL (0.60-1.30); GFR ESTIMATED > 60; GLUCOSE 119 MG/DL (70-105); POTASSIUM 3.9 MMOL/L (3.6-5.0); SODIUM 138 MMOL/L (135-145); TOTAL PROTEIN 7.5 GM/DL (6.4-8.2)
[2019-06-27 11:07] LABS: BILIRUBIN,URINE NEGATIVE (NEGATIVE); CLARITY,URINE CLEAR; COLOR,URINE YELLOW; GLUCOSE, URINE (UA) NEGATIVE (NEGATIVE); KETONES,URINE NEGATIVE (NEGATIVE); LEUKOCYTE ESTERASE ,URINE 1+ (NEGATIVE); NITRITE,URINE NEGATIVE (NEGATIVE); PH,URINE 7 (5-9); PROTEIN,URINE NEGATIVE (NEGATIVE); UROBILINOGEN,URINE NORMAL (NORMAL)
[2019-06-27 11:29] LABS: BACTERIA,URINE TRACE /HPF; SQUAMOUS EPITHELIAL CELL,UR 0-2 /HPF; WBC,URINE 0-2 /HPF
[~2019-06-28] VITALS: Ht 168.9 cm; Wt 82.1 kg
[~2019-06-28 12:46] MED LIST changes: +ACETAMINOPHEN 325 MG TAB (TYLENOL) CANCER CTR PO PRN; +BENDAMUSTINE HCL 160 MG in NS (IVPB) CANCER CENTER 50 ML IV SCH; +NS IV 1000 ML (CANCER CTR) IV SCH; +NS IV 500 ML (CANCER CENTER) 500 ML ONE; +ONDANSETRON MDV (CANCER CENTER 16 MG, DEXAMETHASONE INJECTION 10 MG in NS (IVPB) CANCER... IV SCH; +PALONOSETRON HCL 0.25 MG, DEXAMETHASONE INJECTION 10 MG in NS (IVPB) CANCER CENTER 50 ML IV SCH; +diphenhydrAMINE 25 MG TAB (BENADRYL) CANCER CENTER PO ONE; +diphenhydrAMINE 50 MG/ML INJ (CANCER CENTER) IV PRN; +riTUXimab 500 MG, riTUXimab FOR IV INJ CONC 200 MG in NS (IVPB) CANCER CENTER ONLY 150 ML IV SCH
== END 2019-07-11 | disposition home or self-care (01) ==
LOC: ONC 12:46
PROVIDERS: ATTEND Internal Medicine Hematology & Oncology
DX: C82.18 Follicular lymphoma grade II, lymph nodes of multiple sites (principal); K21.9 Gastro-esophageal reflux disease without esophagitis; Z79.899 Other long term (current) drug therapy
CPT/HCPCS: 36415; 36591; 80053; 80074; 81000; 82784; 83615; 85025; 96375; 96409; 96411; 96413; 96415; 99213; J9312

== ENCOUNTER → 2019-07-22 | Outpatient (CLI) | payer BC ==
[~2019-07-22] MED LIST changes: -ACETAMINOPHEN 325 MG TAB (TYLENOL) CANCER CTR PO PRN; +BARIUM SUSPENSION 2.1% (VANILLA SILQ) 450 ML PO ONE; -BENDAMUSTINE HCL 160 MG in NS (IVPB) CANCER CENTER 50 ML IV SCH; +HOLD METFORMIN - RECEIVED CONTRAST 20 ML VIAL IV SCH; +IOHEXOL 350 MG/ML 100 ML (OMNIPAQUE 350) VIAL IV ONE; +NS 100 ML (IVPB) BAG IV ONE; -NS IV 1000 ML (CANCER CTR) IV SCH; -NS IV 500 ML (CANCER CENTER) 500 ML ONE; -ONDANSETRON MDV (CANCER CENTER 16 MG, DEXAMETHASONE INJECTION 10 MG in NS (IVPB) CANCER... IV SCH; -PALONOSETRON HCL 0.25 MG, DEXAMETHASONE INJECTION 10 MG in NS (IVPB) CANCER CENTER 50 ML IV SCH; -diphenhydrAMINE 25 MG TAB (BENADRYL) CANCER CENTER PO ONE; -diphenhydrAMINE 50 MG/ML INJ (CANCER CENTER) IV PRN; -riTUXimab 500 MG, riTUXimab FOR IV INJ CONC 200 MG in NS (IVPB) CANCER CENTER ONLY 150 ML IV SCH
--- NOTE | 2019-07-22 15:36 | Diagnostic Imaging Report ---
INDICATION: Lymphoma. COMPARISON: Study compared 04/20/2019. TECHNIQUE: Oral contrast was administered. Intravenous contrast given. After IV contrast, CT neck, chest, abdomen and pelvis was performed with multiplanar reconstructions. Comparison study performed in similar fashion. FINDINGS: NECK: Juxta-parotid, preauricular right neck mass is no longer identified. The parotid, submandibular and thyroid glands appeared unremarkable. No morphologically distorted, pathologically numerous nor abnormally enlarged cervical lymph nodes are found. Nasopharynx, oropharynx, hypopharynx unremarkable. The infraglottic trachea appeared patent. Supraclavicular fossa and thoracic inlet unremarkable. No bony destructive lesion. Skull base intact. There is no mastoid effusion. CHEST: Left axillary maldonado mass has resolved. No abnormal lymph nodes in the axilla found on followup. Soft tissue mass previously along the course of the right internal mammary chain has resolved. No suspicious hilar or mediastinal tissue is found. There is no thoracic effusion. The lungs are clear. No suspicious bony lesion. ABDOMEN AND PELVIS: Liver and spleen unremarkable. The cyst in segment 6 incidental. Small and large bowel unobstructed, nonfocal and nonacute. Uterus, adnexa and urinary bladder normal. No pathological appearing abdominal, pelvic, mesenteric or retroperitoneal lymph nodes. There is no suspicious bony finding. There is no ascites, abscess, hematoma or fluid collection. Urinary tract, spleen, adrenals, pancreas and gallbladder all unremarkable. The osseous structures unremarkable. IMPRESSION: 1. Globally, there appears to be complete interval response with resolution of previous soft tissue masses in the neck and chest. NECK: Resolution of preauricular, periparotid mass present on prior. No suspicious finding or adenopathy. CHEST: Resolution of left axillary and right internal mammary chain masses. Normal chest on followup. ABDOMEN AND PELVIS: Stable benign liver cyst. No findings of abdominopelvic neoplasm or acute pathology. Dictated by: Dictated on workstation # [id number]
== END ==
LOC: RAD 14:07
PROVIDERS: ATTEND Internal Medicine Hematology & Oncology
DX: Z01.89 Encounter for other specified special examinations (principal); K76.89 Other specified diseases of liver; C85.90 Non-Hodgkin lymphoma, unspecified, unspecified site
CPT/HCPCS: 70491; 71260; 74176

== ENCOUNTER 2019-08-02 14:16 | Outpatient (RCR) | payer BC ==
[2019-05-09 11:45] LABS: BUN/CREATININE RATIO 9; CALCIUM 9.5 MG/DL (8.5-10.1); CARBON DIOXIDE 24 MMOL/L (21-32); CHLORIDE 100 MMOL/L (98-107); CREATININE SERUM 0.81 MG/DL (0.60-1.30); GFR ESTIMATED > 60; GLUCOSE 104 MG/DL (70-105); POTASSIUM 4.4 MMOL/L (3.6-5.0); SODIUM 138 MMOL/L (135-145); WHITE BLOOD COUNT 6.6 10^3/uL (4.3-11.0)
[2019-05-09 11:46] LABS: BASOPHILS # (AUTO) 0.1 10^3/uL (0.0-0.1); BASOPHILS % (AUTO) 1 % (0-10); EOSINOPHILS # (AUTO) 0.2 10^3/uL (0.0-0.3); EOSINOPHILS % (AUTO) 3 % (0-10); HEMATOCRIT 38 % (35-52); HEMOGLOBIN 11.8 G/DL (11.5-16.0); LYMPHOCYTES # (AUTO) 0.7 X 10^3 (1.0-4.0); LYMPHOCYTES % (AUTO) 10 % (12-44); MEAN CORPUSCULAR HEMOGLOBIN 26 PG (25-34); MEAN CORPUSCULAR HGB CONC 31 G/DL (32-36); MEAN CORPUSCULAR VOLUME 83 FL (80-99); MEAN PLATELET VOLUME 9.4 FL (7.4-10.4); MONOCYTES # (AUTO) 0.6 X 10^3 (0.0-1.0); MONOCYTES % (AUTO) 9 % (0-12); NEUTROPHILS # (AUTO) 5.1 X 10^3 (1.8-7.8); NEUTROPHILS % (AUTO) 77 % (42-75); PLATELET COUNT 490 10^3/uL (130-400); RED CELL DISTRIBUTION WIDTH 15.3 % (10.0-14.5)
[2019-05-23 12:22] LABS: HEMATOCRIT 34 % (35-52); HEMOGLOBIN 10.8 G/DL (11.5-16.0); MEAN CORPUSCULAR HEMOGLOBIN 26 PG (25-34); MEAN CORPUSCULAR HGB CONC 31 G/DL (32-36); MEAN CORPUSCULAR VOLUME 82 FL (80-99); PLATELET COUNT 548 10^3/uL (130-400); RED CELL DISTRIBUTION WIDTH 16.5 % (10.0-14.5); WHITE BLOOD COUNT 5.8 10^3/uL (4.3-11.0)
[2019-05-23 12:23] LABS: BASOPHILS % (AUTO) 1 % (0-10); EOSINOPHILS # (AUTO) 0.1 10^3/uL (0.0-0.3); EOSINOPHILS % (AUTO) 3 % (0-10); LYMPHOCYTES # (AUTO) 0.7 X 10^3 (1.0-4.0); LYMPHOCYTES % (AUTO) 11 % (12-44); MEAN PLATELET VOLUME 8.6 FL (7.4-10.4); MONOCYTES % (AUTO) 17 % (0-12); NEUTROPHILS # (AUTO) 3.9 X 10^3 (1.8-7.8); NEUTROPHILS % (AUTO) 68 % (42-75)
[2019-05-23 12:42] LABS: BUN/CREATININE RATIO 12; CARBON DIOXIDE 23 MMOL/L (21-32); CHLORIDE 101 MMOL/L (98-107); CREATININE SERUM 0.74 MG/DL (0.60-1.30); GFR ESTIMATED > 60; POTASSIUM 4.1 MMOL/L (3.6-5.0); SODIUM 139 MMOL/L (135-145)
[2019-05-23 12:43] LABS: CALCIUM 9.4 MG/DL (8.5-10.1); GLUCOSE 83 MG/DL (70-105)
[2019-06-06 12:24] LABS: BASOPHILS % (AUTO) 1 % (0-10); EOSINOPHILS % (AUTO) 5 % (0-10); HEMATOCRIT 36 % (35-52); HEMOGLOBIN 11.4 G/DL (11.5-16.0); LYMPHOCYTES % (AUTO) 5 % (12-44); MEAN CORPUSCULAR HEMOGLOBIN 26 PG (25-34); MEAN CORPUSCULAR HGB CONC 31 G/DL (32-36); MEAN CORPUSCULAR VOLUME 81 FL (80-99); MEAN PLATELET VOLUME 9.4 FL (7.4-10.4); MONOCYTES % (AUTO) 16 % (0-12); NEUTROPHILS % (AUTO) 73 % (42-75); PLATELET COUNT 432 10^3/uL (130-400); RED CELL DISTRIBUTION WIDTH 16.1 % (10.0-14.5); WHITE BLOOD COUNT 5.2 10^3/uL (4.3-11.0)
[2019-06-06 12:25] LABS: BASOPHILS # (AUTO) 0.1 10^3/uL (0.0-0.1); EOSINOPHILS # (AUTO) 0.3 10^3/uL (0.0-0.3); LYMPHOCYTES # (AUTO) 0.2 X 10^3 (1.0-4.0); MONOCYTES # (AUTO) 0.8 X 10^3 (0.0-1.0); NEUTROPHILS # (AUTO) 3.8 X 10^3 (1.8-7.8)
[2019-06-06 12:59] LABS: BUN/CREATININE RATIO 11; CALCIUM 9.3 MG/DL (8.5-10.1); CARBON DIOXIDE 24 MMOL/L (21-32); CHLORIDE 93 MMOL/L (98-107); CREATININE SERUM 0.73 MG/DL (0.60-1.30); GFR ESTIMATED > 60; GLUCOSE 85 MG/DL (70-105); POTASSIUM 4.3 MMOL/L (3.6-5.0); SODIUM 133 MMOL/L (135-145)
[2019-06-13 12:07] LABS: HEMATOCRIT 36 % (35-52); HEMOGLOBIN 11.2 G/DL (11.5-16.0); LYMPHOCYTES % (AUTO) 4 % (12-44); MEAN CORPUSCULAR HEMOGLOBIN 26 PG (25-34); MEAN CORPUSCULAR HGB CONC 31 G/DL (32-36); MEAN CORPUSCULAR VOLUME 83 FL (80-99); MEAN PLATELET VOLUME 9.5 FL (7.4-10.4); NEUTROPHILS % (AUTO) 82 % (42-75); PLATELET COUNT 411 10^3/uL (130-400); RED CELL DISTRIBUTION WIDTH 16.7 % (10.0-14.5); WHITE BLOOD COUNT 7.9 10^3/uL (4.3-11.0)
[2019-06-13 12:08] LABS: BASOPHILS % (AUTO) 1 % (0-10); EOSINOPHILS # (AUTO) 0.2 10^3/uL (0.0-0.3); EOSINOPHILS % (AUTO) 3 % (0-10); LYMPHOCYTES # (AUTO) 0.3 X 10^3 (1.0-4.0); MONOCYTES # (AUTO) 0.8 X 10^3 (0.0-1.0); MONOCYTES % (AUTO) 10 % (0-12); NEUTROPHILS # (AUTO) 6.5 X 10^3 (1.8-7.8)
[2019-06-13 12:24] LABS: SODIUM 139 MMOL/L (135-145)
[2019-06-13 12:25] LABS: BUN/CREATININE RATIO 12; CALCIUM 9.5 MG/DL (8.5-10.1); CARBON DIOXIDE 23 MMOL/L (21-32); CHLORIDE 101 MMOL/L (98-107); CREATININE SERUM 0.78 MG/DL (0.60-1.30); GFR ESTIMATED > 60; GLUCOSE 134 MG/DL (70-105); POTASSIUM 4.3 MMOL/L (3.6-5.0)
[2019-06-13 13:04] LABS: BAND NEUTROPHILS 4 %; BASOPHILS % (MANUAL) 1 %; EOSINOPHILS % (MANUAL) 4 %; LYMPHOCYTES % (MANUAL) 3 %; MONOCYTES % (MANUAL) 6 %; NEUTROPHILS % (MANUAL) 82 %
[2019-06-20 11:47] LABS: HEMATOCRIT 36 % (35-52); HEMOGLOBIN 11.4 G/DL (11.5-16.0); MEAN CORPUSCULAR HEMOGLOBIN 26 PG (25-34); MEAN CORPUSCULAR HGB CONC 32 G/DL (32-36); MEAN CORPUSCULAR VOLUME 82 FL (80-99); WHITE BLOOD COUNT 6.3 10^3/uL (4.3-11.0)
[2019-06-20 11:48] LABS: BASOPHILS % (AUTO) 1 % (0-10); EOSINOPHILS # (AUTO) 0.2 10^3/uL (0.0-0.3); EOSINOPHILS % (AUTO) 2 % (0-10); LYMPHOCYTES # (AUTO) 0.5 X 10^3 (1.0-4.0); LYMPHOCYTES % (AUTO) 7 % (12-44); MONOCYTES % (AUTO) 16 % (0-12); NEUTROPHILS # (AUTO) 4.6 X 10^3 (1.8-7.8); NEUTROPHILS % (AUTO) 73 % (42-75); PLATELET COUNT 592 10^3/uL (130-400); RED CELL DISTRIBUTION WIDTH 16.4 % (10.0-14.5)
[2019-06-20 11:49] LABS: BASOPHILS # (AUTO) 0.1 10^3/uL (0.0-0.1)
[2019-06-20 12:13] LABS: BUN/CREATININE RATIO 11; CALCIUM 9.4 MG/DL (8.5-10.1); CARBON DIOXIDE 22 MMOL/L (21-32); CHLORIDE 102 MMOL/L (98-107); CREATININE SERUM 0.72 MG/DL (0.60-1.30); GFR ESTIMATED > 60; GLUCOSE 90 MG/DL (70-105); POTASSIUM 4.3 MMOL/L (3.6-5.0); SODIUM 139 MMOL/L (135-145)
[2019-07-05 14:00] LABS: WHITE BLOOD COUNT 7.1 10^3/uL (4.3-11.0)
[2019-07-05 14:01] LABS: BASOPHILS % (AUTO) 0 % (0-10); EOSINOPHILS # (AUTO) 0.2 10^3/uL (0.0-0.3); EOSINOPHILS % (AUTO) 3 % (0-10); HEMATOCRIT 35 % (35-52); HEMOGLOBIN 10.9 G/DL (11.5-16.0); LYMPHOCYTES # (AUTO) 0.2 X 10^3 (1.0-4.0); LYMPHOCYTES % (AUTO) 2 % (12-44); MEAN CORPUSCULAR HEMOGLOBIN 26 PG (25-34); MEAN CORPUSCULAR HGB CONC 31 G/DL (32-36); MEAN CORPUSCULAR VOLUME 82 FL (80-99); MEAN PLATELET VOLUME 9.3 FL (7.4-10.4); MONOCYTES # (AUTO) 0.8 X 10^3 (0.0-1.0); MONOCYTES % (AUTO) 12 % (0-12); NEUTROPHILS # (AUTO) 5.9 X 10^3 (1.8-7.8); NEUTROPHILS % (AUTO) 82 % (42-75); PLATELET COUNT 450 10^3/uL (130-400); RED CELL DISTRIBUTION WIDTH 16.2 % (10.0-14.5)
[2019-07-05 14:28] LABS: BUN/CREATININE RATIO 10; CALCIUM 8.9 MG/DL (8.5-10.1); CARBON DIOXIDE 23 MMOL/L (21-32); CHLORIDE 97 MMOL/L (98-107); CREATININE SERUM 0.77 MG/DL (0.60-1.30); GFR ESTIMATED > 60; GLUCOSE 133 MG/DL (70-105); SODIUM 136 MMOL/L (135-145)
[2019-07-19 13:01] LABS: BASOPHILS % (AUTO) 1 % (0-10); EOSINOPHILS % (AUTO) 1 % (0-10); HEMATOCRIT 35 % (35-52); LYMPHOCYTES % (AUTO) 7 % (12-44); MEAN CORPUSCULAR HEMOGLOBIN 26 PG (25-34); MEAN CORPUSCULAR HGB CONC 32 G/DL (32-36); MEAN CORPUSCULAR VOLUME 83 FL (80-99); MEAN PLATELET VOLUME 9.3 FL (7.4-10.4); MONOCYTES % (AUTO) 11 % (0-12); NEUTROPHILS % (AUTO) 80 % (42-75); PLATELET COUNT 493 10^3/uL (130-400); RED CELL DISTRIBUTION WIDTH 16.8 % (10.0-14.5); WHITE BLOOD COUNT 5.6 10^3/uL (4.3-11.0)
[2019-07-19 13:02] LABS: EOSINOPHILS # (AUTO) 0.1 10^3/uL (0.0-0.3); LYMPHOCYTES # (AUTO) 0.4 X 10^3 (1.0-4.0); MONOCYTES # (AUTO) 0.6 X 10^3 (0.0-1.0); NEUTROPHILS # (AUTO) 4.5 X 10^3 (1.8-7.8)
[2019-07-19 14:26] LABS: CARBON DIOXIDE 22 MMOL/L (21-32); CHLORIDE 98 MMOL/L (98-107); POTASSIUM 4.6 MMOL/L (3.6-5.0); SODIUM 136 MMOL/L (135-145)
[2019-07-19 14:27] LABS: BUN/CREATININE RATIO 8; CALCIUM 9.2 MG/DL (8.5-10.1); CREATININE SERUM 0.97 MG/DL (0.60-1.30); GFR ESTIMATED > 60; GLUCOSE 118 MG/DL (70-105)
[~2019-08-02 14:16] MED LIST changes: -BARIUM SUSPENSION 2.1% (VANILLA SILQ) 450 ML PO ONE; -HOLD METFORMIN - RECEIVED CONTRAST 20 ML VIAL IV SCH; -IOHEXOL 350 MG/ML 100 ML (OMNIPAQUE 350) VIAL IV ONE; -NS 100 ML (IVPB) BAG IV ONE
[2019-08-02 14:32] LABS: HEMATOCRIT 35 % (35-52); HEMOGLOBIN 10.9 G/DL (11.5-16.0); MEAN CORPUSCULAR HEMOGLOBIN 25 PG (25-34); MEAN CORPUSCULAR HGB CONC 31 G/DL (32-36); MEAN CORPUSCULAR VOLUME 82 FL (80-99); WHITE BLOOD COUNT 5.7 10^3/uL (4.3-11.0)
[2019-08-02 14:33] LABS: BASOPHILS % (AUTO) 1 % (0-10); EOSINOPHILS % (AUTO) 5 % (0-10); LYMPHOCYTES % (AUTO) 6 % (12-44); MEAN PLATELET VOLUME 8.8 FL (7.4-10.4); MONOCYTES % (AUTO) 15 % (0-12); NEUTROPHILS % (AUTO) 74 % (42-75); PLATELET COUNT 425 10^3/uL (130-400); RED CELL DISTRIBUTION WIDTH 16.7 % (10.0-14.5)
[2019-08-02 14:34] LABS: EOSINOPHILS # (AUTO) 0.3 10^3/uL (0.0-0.3); LYMPHOCYTES # (AUTO) 0.3 X 10^3 (1.0-4.0); MONOCYTES # (AUTO) 0.8 X 10^3 (0.0-1.0); NEUTROPHILS # (AUTO) 4.2 X 10^3 (1.8-7.8)
[2019-08-02 15:50] LABS: BUN/CREATININE RATIO 10; CARBON DIOXIDE 22 MMOL/L (21-32); CHLORIDE 100 MMOL/L (98-107); GFR ESTIMATED > 60; POTASSIUM 4.1 MMOL/L (3.6-5.0); SODIUM 138 MMOL/L (135-145)
[2019-08-02 15:51] LABS: CALCIUM 9.4 MG/DL (8.5-10.1); GLUCOSE 115 MG/DL (70-105)
[2019-08-04] MEDS ORDERED: LEVO750T9 PO (20:00)
== END 2019-08-07 | disposition home or self-care (01) ==
LOC: LAB FS 14:16
PROVIDERS: ATTEND Nurse Practitioner Adult Health
DX: C85.90 Non-Hodgkin lymphoma, unspecified, unspecified site (principal)
CPT/HCPCS: 36415; 80048; 85007; 85025; 85027

== ENCOUNTER 2019-08-04 16:57 | Emergency (ER) | payer BC ==
[~2019-08-04] VITALS: Ht 167.7 cm; Wt 83.0 kg
[2019-08-04 17:41] LABS: EOSINOPHILS % (AUTO) 2 % (0-10); HEMATOCRIT 36 % (35-52); HEMOGLOBIN 11.3 G/DL (11.5-16.0); LYMPHOCYTES % (AUTO) 5 % (12-44); MEAN CORPUSCULAR HEMOGLOBIN 26 PG (25-34); MEAN CORPUSCULAR HGB CONC 32 G/DL (32-36); MEAN CORPUSCULAR VOLUME 82 FL (80-99); MONOCYTES % (AUTO) 9 % (0-12); NEUTROPHILS % (AUTO) 83 % (42-75); PLATELET COUNT 355 10^3/uL (130-400); RED CELL DISTRIBUTION WIDTH 17.1 % (10.0-14.5); WHITE BLOOD COUNT 5.3 10^3/uL (4.3-11.0)
[2019-08-04 17:42] LABS: BASOPHILS % (AUTO) 0 % (0-10); EOSINOPHILS # (AUTO) 0.1 10^3/uL (0.0-0.3); LYMPHOCYTES # (AUTO) 0.3 X 10^3 (1.0-4.0); MONOCYTES # (AUTO) 0.5 X 10^3 (0.0-1.0); NEUTROPHILS # (AUTO) 4.4 X 10^3 (1.8-7.8)
--- NOTE | 2019-08-04 17:49 | Diagnostic Imaging Report ---
INDICATION: Fever COMPARISON: 05/14/2019 FINDINGS: Frontal and lateral views the chest demonstrate clear lungs bilaterally. The Port-A-Cath is stable. The heart size is normal. There is no pneumothorax. Osseous structures are normal. IMPRESSION: No acute findings. Normal chest. Dictated by: Dictated on workstation # [id number]
[2019-08-04 17:57] LABS: BUN/CREATININE RATIO 8; CARBON DIOXIDE 22 MMOL/L (21-32); CHLORIDE 98 MMOL/L (98-107); CREATININE SERUM 0.76 MG/DL (0.60-1.30); GFR ESTIMATED > 60; SODIUM 135 MMOL/L (135-145)
[2019-08-04 17:58] LABS: ALANINE AMINOTRANSFERASE 28 U/L (0-55); ALBUMIN 4.4 GM/DL (3.2-4.5); ALKALINE PHOSPHATASE 104 U/L (40-136); BILIRUBIN,TOTAL 0.3 MG/DL (0.1-1.0); CALCIUM 9.1 MG/DL (8.5-10.1); GLUCOSE 108 MG/DL (70-105); TOTAL PROTEIN 7.1 GM/DL (6.4-8.2)
[2019-08-04] MEDS ORDERED: ACETAMINOPHEN 500 MG TAB (TYLENOL) PO STA (18:25)
[2019-08-04] MEDS ORDERED: NS IV 1000 ML 1,000 ML IV STA (18:25)
--- NOTE | 2019-08-04 18:33 | ED Fever ---
History of Present Illness General Chief Complaint: Fever-Adult/Adol Stated Complaint: POSS PNEUMONIA, FEVER Nursing Triage Note: PT REPORTS A FEVER OF 101.5 AND HER ENTIRE BODY IS ACHING. PT CURRENTLY RECEIVING TREATMENTS FOR FOLLICULAR LYMPHOMA. Sepsis Screen: Possible Severe Sepsis Risk Source: patient History of Present Illness Date Seen by Provider: Aug 04, 2019 Time Seen by Provider: 18:08 Initial Comments 49-year-old female presenting with fever up to 1.5 Fahrenheit. She has had aching and chills along with this since last night. She is receiving chemotherapy for lymphoma through Dr. Ortega from [place]. She had her most recent treatment last week. She had called the cancer treatment center today and they had advised her to go to urgent care to get a flu swab and checked. When she went after work today they had done a flu swab and a chest x-ray. they had advised her that these were all negative. They also did a strep swab and urine and some basic blood work. Since nothing has shown up they had advised her to come here to the emergency department. She last took ibuprofen 400 mg at 1600 for her fever. She denies having any cough or congestion, vomiting, diarrhea, burning with urination, scrapes or abrasions, any specific source of infection. Timing/Duration: yesterday Fever Quality: greater than 100.5 F Fever Therapy RADIOLOGY TECH: Ibuprofen Associated Symptoms: No abdominal pain, No chest pain, No confusion, No cough, No diaphoresis, No headache; muscle aches; No nausea/vomiting, No rash, No shortness of breath, No sore throat, No stiff neck, No syncope, No weakness Allergies and Home Medications Allergies Coded Allergies: hydrocodone (Unverified Adverse Reaction, Mild, 04/27/19) CAUSES NAUSEA/VOMITING, MIGRAINE BARTH Home Medications Acetaminophen/Diphenhydramine 1 Each Tablet, 1 EACH PO HS, (Reported) Fexofenadine HCl 180 Mg Tablet, 180 MG PO DAILY, (Reported) Levofloxacin 750 Mg Tablet, 750 MG PO DAILY Prescribed by: REBECCA BRITTON on 08/04/191999 Naproxen Sodium 220 Mg Tablet, 220 MG PO PRN, (Reported) Omeprazole Magnesium 20 Mg Tablet.dr, 20 MG PO DAILY, (Reported) [Bcp] , 1 TAB PO DAILY, (Reported) Patient Home Medication List Home Medication List Reviewed: Yes Review of Systems Review of Systems Constitutional: chills, fever, malaise EENTM: No ear discharge, No hearing loss, No ear pain, No vision loss, No nose congestion, No throat pain, No throat swelling Respiratory: No cough, No short of breath, No stridor, No wheezing Cardiovascular: No chest pain Gastrointestinal: No abdominal pain, No diarrhea, No nausea, No vomiting Genitourinary: No decreased output, No dysuria, No frequency, No hematuria, No incontinence, No pain Musculoskeletal: muscle pain (diffuse muscle aches) Skin: No rash Psychiatric/Neurological: Denies Headache Past Exotvdh-Sqljuy-Frptgu Hx Past Med/Social Hx: Reviewed Nursing Past Med/Soc Hx Patient Social History Alcohol Use: Denies Use Recreational Drug Use: No 2nd Hand Smoke Exposure: No Recent Foreign Travel: No Contact w/Someone Who Travel: No Recent Infectious Disease Expo: No Recent Hopitalizations: No Physical Abuse: No Sexual Abuse: No Mistreated: No Fear: No Immunizations Up To Date Tetanus Booster (TDap): Unknown Date of Pneumonia Vaccine: Nov 23, 2018 Date of Influenza Vaccine: Aug 30, 2018 Seasonal Allergies Seasonal Allergies: No Past Medical History Surgeries: Yes (LAZY EYE CORRECTION x2, C/S x3, DXLS FOR OVARIAN CYST, EXC ENDOMETRIOSIS, ) Section, Eye Surgery Respiratory: No Cardiac: No Neurological: No Reproductive Disorders: Yes Female Reproductive Disorders: Endometriosis, Ovarian Cyst Sexually Transmitted Disease: No HIV/AIDS: No Genitourinary: Yes (OCCASIONALLY, HX BLADDER STRETCHED CHILD) UTI-Chronic Gastrointestinal: Yes Gastroesophageal Reflux, Chronic Constipation Musculoskeletal: No Endocrine: No HEENT: Yes (GLASSES/CONTACTS) Loss of Vision: Bilateral Hearing Impairment: Denies Cancer: Yes (FOLLICULAR LYMPHOMA, NON-HODGKINS TYPE) Lymphoma Did You Recieve Any Treatments: Yes What Type of Treatment Did You: Chemotherapy Psychosocial: No Integumentary: No Blood Disorders: No Adverse Reaction/Blood Tranf: No (N/A) Physical Exam Vital Signs - First Documented 08/04/19 17:20 Temp 38.4 Pulse 110 Resp 24 B/P (MAP) 140/74 (96) Pulse Ox 96 O2 Delivery Room Air Capillary Refill : Less Than 3 Seconds Height: 5'6.50" Weight: 180lbs. 0.0oz. 81.558258ww; 29.00 BMI Method:Stated General Appearance: WD/WN, no apparent distress HEENT: PERRL/EOMI, normal ENT inspection, TMs normal, pharynx normal Neck: non-tender, full range of motion, supple, normal inspection Respiratory: chest non-tender, lungs clear, normal breath sounds, no respiratory distress, no accessory muscle use Cardiovascular: normal peripheral pulses, no edema, no murmur, tachycardia Gastrointestinal: normal bowel sounds, soft, no pulsatile mass, tenderness (mild tenderness in the left lower abdomen but patient states is chronic) Extremities: normal range of motion, non-tender, normal inspection, no pedal edema, no calf tenderness, normal capillary refill Neurologic/Psychiatric: alert, normal mood/affect, oriented x 3 Skin: normal color, warm/dry Focused Exam Lactate Level 08/04/19 17:15: Lactic Acid Level 1.52 Lactic Acid Level Laboratory Tests Test 08/04/19 17:15 Lactic Acid Level 1.52 MMOL/L (0.50-2.00) Progress/Results/Core Measures Suspected Sepsis Recent Fever Within 48 Hours: Yes Infection Criteria Present: Suspected New Infection New/Unexplained Altered Menta: No Sepsis Screen: Possible Severe Sepsis Risk SIRS Temperature: Pulse: 110 Respiratory Rate: 24 Laboratory Tests 08/04/19 17:15: White Blood Count 5.3 Blood Pressure 140 /74 Mean: 96 08/04/19 17:15: Lactic Acid Level 1.52 Laboratory Tests 08/04/19 17:15: Creatinine 0.76, Platelet Count 355, Total Bilirubin 0.3 Results/Orders Lab Results Laboratory Tests Test 08/04/19 17:15 08/04/19 17:58 Range/Units White Blood Count 5.3 4.3-11.0 10^3/uL Red Blood Count 4.34 L 4.35-5.85 10^6/uL Hemoglobin 11.3 L 11.5-16.0 G/DL Hematocrit 36 35-52 % Mean Corpuscular Volume 82 80-99 FL Mean Corpuscular Hemoglobin 26 25-34 PG Mean Corpuscular Hemoglobin Concent 32 32-36 G/DL Red Cell Distribution Width 17.1 H 10.0-14.5 % Platelet Count 355 130-400 10^3/uL Mean Platelet Volume 9.0 7.4-10.4 FL Neutrophils (%) (Auto) 83 H 42-75 % Lymphocytes (%) (Auto) 5 L 12-44 % Monocytes (%) (Auto) 9 0-12 % Eosinophils (%) (Auto) 2 0-10 % Basophils (%) (Auto) 0 0-10 % Neutrophils # (Auto) 4.4 1.8-7.8 X 10^3 Lymphocytes # (Auto) 0.3 L 1.0-4.0 X 10^3 Monocytes # (Auto) 0.5 0.0-1.0 X 10^3 Eosinophils # (Auto) 0.1 0.0-0.3 10^3/uL Basophils # (Auto) 0.0 0.0-0.1 10^3/uL Neutrophils % (Manual) 77 % Lymphocytes % (Manual) 1 % Monocytes % (Manual) 4 % Eosinophils % (Manual) 5 % Basophils % (Manual) 1 % Band Neutrophils 12 % Sodium Level 135 135-145 MMOL/L Potassium Level 4.0 3.6-5.0 MMOL/L Chloride Level 98 98-107 MMOL/L Carbon Dioxide Level 22 21-32 MMOL/L Anion Gap 15 H 5-14 MMOL/L Blood Urea Nitrogen 6 L 7-18 MG/DL Creatinine 0.76 0.60-1.30 MG/DL Estimat Glomerular Filtration Rate > 60 BUN/Creatinine Ratio 8 Glucose Level 108 H 70-105 MG/DL Lactic Acid Level 1.52 0.50-2.00 MMOL/L Calcium Level 9.1 8.5-10.1 MG/DL Corrected Calcium 8.8 8.5-10.1 MG/DL Total Bilirubin 0.3 0.1-1.0 MG/DL Aspartate Amino Transf (AST/SGOT) 34 5-34 U/L Alanine Aminotransferase (ALT/SGPT) 28 0-55 U/L Alkaline Phosphatase 104 40-136 U/L Total Protein 7.1 6.4-8.2 GM/DL Albumin 4.4 3.2-4.5 GM/DL Urine Color YELLOW Urine Clarity CLEAR Urine pH 7.5 5-9 Urine Specific Cord 1.010 L 1.016-1.022 Urine Protein NEGATIVE NEGATIVE Urine Glucose (UA) NEGATIVE NEGATIVE Urine Ketones NEGATIVE NEGATIVE Urine Nitrite NEGATIVE NEGATIVE Urine Bilirubin NEGATIVE NEGATIVE Urine Urobilinogen 0.2 NORMAL MG/DL Urine Leukocyte Esterase NEGATIVE NEGATIVE Urine RBC (Auto) 1+ H NEGATIVE Urine RBC 0-2 /HPF Urine WBC NONE /HPF Urine Squamous Epithelial Cells 5-10 /HPF Urine Crystals NONE /LPF Urine Bacteria NEGATIVE /HPF Urine Casts NONE /LPF Urine Mucus NONE /LPF Urine Culture Indicated NO My Orders Orders - REBECCA BRITTON MD Iv 1000 Ml (Sodium Chloride 0.9%) (08/04/19 18:25) Acetaminophen Tablet (Tylenol Tablet) (08/04/19 18:25) Ceftriaxone For Iv Use (Rocephin For I (08/04/19 19:55) Vital Signs/I&O 08/04/19 17:20 Temp 38.4 Pulse 110 Resp 24 B/P (MAP) 140/74 (96) Pulse Ox 96 O2 Delivery Room Air Capillary Refill : Less Than 3 Seconds Blood Pressure Mean: 96 Progress Note #1: Time: 18:00 Progress Note I assumed care from Dr. Ponce at shift change. He had been in some basic labs on the patient while he was dealing with other patients in the emergency department. He had not seen the patient as of yet. I went to see her when I started my shift. Will review labs and tests so far. Give IV fluids for her tachycardia and hydration. Since she was running a fever on arrival Will dose with Tylenol. Progress Note #2: Time: 19:21 Progress Note Page placed to Dr. Champion about the results coming back negative. Her chest x- ray was read out as no infiltrate here by the radiologist. Her labs did not demonstrate any neutropenia or signs of sepsis with having a normal lactic acid. She had some improvement with treatment here in the ED. She was feeling a little bit better. Counseled on results and he advised that she could get a dose of IV antibiotics here and discharged on oral antibiotics. Since her cultures were obtained that was the main thing that he was wanting done. Will have her follow-up through the clinic with him. ECG Initial ECG Impression Date: Aug 04, 2019 Initial ECG Impression Time: 17:14 Initial ECG Rate: 107 Initial ECG Rhythm: S.Tach Comment Sinus tachycardia with a heart rate of 107 bpm. CO interval 125 ms. She has no acute ST elevation. She has some diffuse T-wave flattening. There is low voltage in the precordial leads. Her QT interval is 341 ms and a QT corrected interval 455 ms. Diagnostic Imaging Diagonstic Imaging: Xray Plain Films/CT/US/NM/MRI: chest Comments NAME: [facility] PACE [facility] REC#: [id number] PT STATUS: REG ER : 1970 PHYSICIAN: RE PONCE MD ADMIT DATE: 08/04/19/ER FS Signed Date of Exam:08/04/19 CHEST PA/LAT (2 VIEW) INDICATION: Fever COMPARISON: 05/14/2019 FINDINGS: Frontal and lateral views the chest demonstrate clear lungs bilaterally. The Port-A-Cath is stable. The heart size is normal. There is no pneumothorax. Osseous structures are normal. IMPRESSION: No acute findings. Normal chest. Dictated by: Dictated on workstation # [id number] Dict: 08/04/191744 Trans: 08/04/191745 [facility] [id number] Interpreted by: MARCIA COLLAZO Electronically signed by: MARCIA COLLAZO 08/04/191745 Departure Impression Primary Impression: Immunosuppressive-induced fever Additional Impression: Dehydration Disposition: 01 HOME, SELF-CARE Condition: Stable Departure-Patient Inst. Decision time for Depature: 19:57 Referrals: TAMMIE RIVERA MD (PCP/Family) Primary Care Physician RICKY ORTEGA Patient Instructions: Dehydration, Adult (DC) Add. Discharge Instructions: Take the antibiotics until gone. Check back with Dr. Ortega about the fever and blood culture results Return if worsening symptoms or not improving All discharge instructions reviewed with patient and/or family. Voiced understanding. Scripts Levofloxacin (Levaquin) 750 Mg Tablet 750 MG PO DAILY for 7 Days, #7 TAB 0 Refills Prov: REBECCA BRITTON MD 08/04/19 REBECCA BRITTON MD Aug 04, 2019 18:33
[2019-08-04 18:35] LABS: BAND NEUTROPHILS 12 %; BASOPHILS % (MANUAL) 1 %; EOSINOPHILS % (MANUAL) 5 %; LYMPHOCYTES % (MANUAL) 1 %; MONOCYTES % (MANUAL) 4 %; NEUTROPHILS % (MANUAL) 77 %
[2019-08-04 18:38] LABS: CLARITY,URINE CLEAR; COLOR,URINE YELLOW
[2019-08-04 18:39] LABS: BACTERIA,URINE NEGATIVE /HPF; BILIRUBIN,URINE NEGATIVE (NEGATIVE); GLUCOSE, URINE (UA) NEGATIVE (NEGATIVE); KETONES,URINE NEGATIVE (NEGATIVE); LEUKOCYTE ESTERASE ,URINE NEGATIVE (NEGATIVE); NITRITE,URINE NEGATIVE (NEGATIVE); PH,URINE 7.5 (5-9); PROTEIN,URINE NEGATIVE (NEGATIVE); RBC,URINE 0-2 /HPF; UROBILINOGEN,URINE 0.2 MG/DL (NORMAL)
[2019-08-04] MEDS ORDERED: cefTRIAXone FOR IV USE 1,000 MG in WATER (STERILE) FOR INJECTION 10 ML IV STA (19:55)
[2019-08-04] MEDS ORDERED: LEVO750T9 PO (20:00)
[2019-08-04 20:22] VITALS: BP 125/69
== END 2019-08-04 20:22 | disposition home or self-care (01) ==
LOC: EDUNIT# 16:57 → ER FS 16:59
DX: R50.2 Drug induced fever (principal); E86.0 Dehydration; C85.90 Non-Hodgkin lymphoma, unspecified, unspecified site; K21.9 Gastro-esophageal reflux disease without esophagitis; Z88.5 Allergy status to narcotic agent; Z87.19 Personal history of other diseases of the digestive system; Z87.442 Personal history of urinary calculi
CPT/HCPCS: 36415; 71046; 80053; 81000; 83605; 85007; 85027; 87040; 93005; 96374

== ENCOUNTER 2019-09-13 08:11 | Outpatient (RCR) | payer BC ==
[2019-08-09 09:13] LABS: CHLORIDE 97 MMOL/L (98-107); POTASSIUM 4.5 MMOL/L (3.6-5.0); SODIUM 135 MMOL/L (135-145)
[2019-08-09 09:14] LABS: BUN/CREATININE RATIO 9; CALCIUM 9.4 MG/DL (8.5-10.1); CARBON DIOXIDE 23 MMOL/L (21-32); CREATININE SERUM 0.81 MG/DL (0.60-1.30); GFR ESTIMATED > 60; GLUCOSE 94 MG/DL (70-105)
[2019-08-09 09:15] LABS: BASOPHILS # (AUTO) 0.1 10^3/uL (0.0-0.1); BASOPHILS % (AUTO) 1 % (0-10); EOSINOPHILS # (AUTO) 0.3 10^3/uL (0.0-0.3); EOSINOPHILS % (AUTO) 6 % (0-10); HEMATOCRIT 34 % (35-52); HEMOGLOBIN 10.8 G/DL (11.5-16.0); LYMPHOCYTES # (AUTO) 0.9 X 10^3 (1.0-4.0); LYMPHOCYTES % (AUTO) 16 % (12-44); MEAN CORPUSCULAR HEMOGLOBIN 26 PG (25-34); MEAN CORPUSCULAR HGB CONC 31 G/DL (32-36); MEAN CORPUSCULAR VOLUME 83 FL (80-99); MEAN PLATELET VOLUME 9.4 FL (7.4-10.4); MONOCYTES # (AUTO) 0.7 X 10^3 (0.0-1.0); MONOCYTES % (AUTO) 12 % (0-12); NEUTROPHILS # (AUTO) 3.7 X 10^3 (1.8-7.8); NEUTROPHILS % (AUTO) 65 % (42-75); PLATELET COUNT 326 10^3/uL (130-400); RED CELL DISTRIBUTION WIDTH 17.5 % (10.0-14.5); WHITE BLOOD COUNT 5.7 10^3/uL (4.3-11.0)
[2019-08-16 11:19] LABS: HEMATOCRIT 35 % (35-52); HEMOGLOBIN 10.8 G/DL (11.5-16.0); MEAN CORPUSCULAR HEMOGLOBIN 26 PG (25-34); MEAN CORPUSCULAR VOLUME 83 FL (80-99); WHITE BLOOD COUNT 5.4 10^3/uL (4.3-11.0)
[2019-08-16 11:20] LABS: BASOPHILS # (AUTO) 0.1 10^3/uL (0.0-0.1); BASOPHILS % (AUTO) 1 % (0-10); EOSINOPHILS # (AUTO) 0.4 10^3/uL (0.0-0.3); EOSINOPHILS % (AUTO) 7 % (0-10); LYMPHOCYTES # (AUTO) 1.3 X 10^3 (1.0-4.0); LYMPHOCYTES % (AUTO) 25 % (12-44); MEAN CORPUSCULAR HGB CONC 31 G/DL (32-36); MONOCYTES # (AUTO) 0.9 X 10^3 (0.0-1.0); MONOCYTES % (AUTO) 17 % (0-12); NEUTROPHILS # (AUTO) 2.7 X 10^3 (1.8-7.8); NEUTROPHILS % (AUTO) 50 % (42-75); PLATELET COUNT 489 10^3/uL (130-400); RED CELL DISTRIBUTION WIDTH 17.5 % (10.0-14.5)
[2019-08-16 11:42] LABS: BUN/CREATININE RATIO 11; CALCIUM 9.3 MG/DL (8.5-10.1); CARBON DIOXIDE 24 MMOL/L (21-32); CHLORIDE 104 MMOL/L (98-107); CREATININE SERUM 0.74 MG/DL (0.60-1.30); GFR ESTIMATED > 60; GLUCOSE 97 MG/DL (70-105); POTASSIUM 4.1 MMOL/L (3.6-5.0); SODIUM 138 MMOL/L (135-145)
[2019-08-30 13:39] LABS: BUN/CREATININE RATIO 11; CALCIUM 9.1 MG/DL (8.5-10.1); CARBON DIOXIDE 26 MMOL/L (21-32); CHLORIDE 103 MMOL/L (98-107); CREATININE SERUM 0.81 MG/DL (0.60-1.30); GFR ESTIMATED > 60; GLUCOSE 105 MG/DL (70-105); POTASSIUM 4.5 MMOL/L (3.6-5.0); SODIUM 138 MMOL/L (135-145)
[2019-08-30 13:40] LABS: HEMATOCRIT 35 % (35-52); HEMOGLOBIN 10.8 G/DL (11.5-16.0); MEAN CORPUSCULAR HEMOGLOBIN 26 PG (25-34); MEAN CORPUSCULAR HGB CONC 31 G/DL (32-36); MEAN CORPUSCULAR VOLUME 83 FL (80-99); MEAN PLATELET VOLUME 8.7 FL (7.4-10.4); PLATELET COUNT 396 10^3/uL (130-400); RED CELL DISTRIBUTION WIDTH 16.2 % (10.0-14.5); WHITE BLOOD COUNT 4.6 10^3/uL (4.3-11.0)
[2019-08-30 13:41] LABS: BASOPHILS % (AUTO) 1 % (0-10); EOSINOPHILS # (AUTO) 0.3 10^3/uL (0.0-0.3); EOSINOPHILS % (AUTO) 5 % (0-10); LYMPHOCYTES # (AUTO) 0.6 X 10^3 (1.0-4.0); LYMPHOCYTES % (AUTO) 13 % (12-44); MONOCYTES # (AUTO) 0.8 X 10^3 (0.0-1.0); MONOCYTES % (AUTO) 18 % (0-12); NEUTROPHILS # (AUTO) 2.9 X 10^3 (1.8-7.8); NEUTROPHILS % (AUTO) 62 % (42-75)
[2019-09-06 15:48] LABS: BASOPHILS % (AUTO) 1 % (0-10); EOSINOPHILS # (AUTO) 0.2 10^3/uL (0.0-0.3); EOSINOPHILS % (AUTO) 3 % (0-10); HEMATOCRIT 33 % (35-52); HEMOGLOBIN 10.5 G/DL (11.5-16.0); LYMPHOCYTES # (AUTO) 0.8 X 10^3 (1.0-4.0); LYMPHOCYTES % (AUTO) 14 % (12-44); MEAN CORPUSCULAR HEMOGLOBIN 26 PG (25-34); MEAN CORPUSCULAR HGB CONC 32 G/DL (32-36); MEAN CORPUSCULAR VOLUME 82 FL (80-99); MEAN PLATELET VOLUME 8.4 FL (7.4-10.4); MONOCYTES # (AUTO) 0.9 X 10^3 (0.0-1.0); MONOCYTES % (AUTO) 17 % (0-12); NEUTROPHILS # (AUTO) 3.6 X 10^3 (1.8-7.8); NEUTROPHILS % (AUTO) 65 % (42-75); PLATELET COUNT 428 10^3/uL (130-400); WHITE BLOOD COUNT 5.5 10^3/uL (4.3-11.0)
[2019-09-06 16:05] LABS: CARBON DIOXIDE 23 MMOL/L (21-32); CHLORIDE 105 MMOL/L (98-107); POTASSIUM 4.2 MMOL/L (3.6-5.0); SODIUM 139 MMOL/L (135-145)
[2019-09-06 16:06] LABS: BUN/CREATININE RATIO 11; CALCIUM 8.9 MG/DL (8.5-10.1); CREATININE SERUM 0.74 MG/DL (0.60-1.30); GFR ESTIMATED > 60; GLUCOSE 116 MG/DL (70-105)
[~2019-09-13 08:11] MED LIST changes: +LEVO750T9 PO
[2019-09-13 08:56] LABS: HEMATOCRIT 34 % (35-52); HEMOGLOBIN 10.8 G/DL (11.5-16.0); MEAN CORPUSCULAR HEMOGLOBIN 26 PG (25-34); MEAN PLATELET VOLUME 8.5 FL (7.4-10.4); PLATELET COUNT 453 10^3/uL (130-400); RED CELL DISTRIBUTION WIDTH 16.4 % (10.0-14.5); WHITE BLOOD COUNT 4.8 10^3/uL (4.3-11.0)
[2019-09-13 08:57] LABS: BASOPHILS % (AUTO) 0 % (0-10); EOSINOPHILS # (AUTO) 0.1 10^3/uL (0.0-0.3); EOSINOPHILS % (AUTO) 3 % (0-10); LYMPHOCYTES # (AUTO) 0.9 X 10^3 (1.0-4.0); LYMPHOCYTES % (AUTO) 18 % (12-44); MEAN CORPUSCULAR HGB CONC 32 G/DL (32-36); MEAN CORPUSCULAR VOLUME 81 FL (80-99); MONOCYTES # (AUTO) 0.9 X 10^3 (0.0-1.0); MONOCYTES % (AUTO) 19 % (0-12); NEUTROPHILS # (AUTO) 2.9 X 10^3 (1.8-7.8); NEUTROPHILS % (AUTO) 60 % (42-75)
[2019-09-13 09:15] LABS: SODIUM 138 MMOL/L (135-145)
[2019-09-13 09:16] LABS: BUN/CREATININE RATIO 15; CALCIUM 9.2 MG/DL (8.5-10.1); CARBON DIOXIDE 23 MMOL/L (21-32); CHLORIDE 105 MMOL/L (98-107); CREATININE SERUM 0.74 MG/DL (0.60-1.30); GFR ESTIMATED > 60; GLUCOSE 99 MG/DL (70-105); POTASSIUM 4.5 MMOL/L (3.6-5.0)
== END 2019-11-07 | disposition home or self-care (01) ==
LOC: LAB FS 08:11
PROVIDERS: ATTEND Nurse Practitioner Adult Health
DX: C85.90 Non-Hodgkin lymphoma, unspecified, unspecified site (principal)
CPT/HCPCS: 36415; 80048; 85025

== ENCOUNTER 2019-10-04 07:59 | Outpatient (RCR) | payer BC ==
[2019-09-28 13:48] LABS: BASOPHILS % (AUTO) 1 % (0-10); EOSINOPHILS # (AUTO) 0.2 10^3/uL (0.0-0.3); EOSINOPHILS % (AUTO) 3 % (0-10); HEMATOCRIT 33 % (35-52); HEMOGLOBIN 10.5 G/DL (11.5-16.0); LYMPHOCYTES # (AUTO) 0.3 X 10^3 (1.0-4.0); LYMPHOCYTES % (AUTO) 6 % (12-44); MEAN CORPUSCULAR HEMOGLOBIN 25 PG (25-34); MEAN CORPUSCULAR HGB CONC 31 G/DL (32-36); MEAN CORPUSCULAR VOLUME 81 FL (80-99); MEAN PLATELET VOLUME 8.6 FL (7.4-10.4); MONOCYTES # (AUTO) 0.8 X 10^3 (0.0-1.0); MONOCYTES % (AUTO) 15 % (0-12); NEUTROPHILS # (AUTO) 3.6 X 10^3 (1.8-7.8); NEUTROPHILS % (AUTO) 75 % (42-75); PLATELET COUNT 440 10^3/uL (130-400); RED CELL DISTRIBUTION WIDTH 15.5 % (10.0-14.5); WHITE BLOOD COUNT 4.9 10^3/uL (4.3-11.0)
[2019-09-28 14:06] LABS: BUN/CREATININE RATIO 10; CARBON DIOXIDE 26 MMOL/L (21-32); CHLORIDE 100 MMOL/L (98-107); CREATININE SERUM 0.79 MG/DL (0.60-1.30); GFR ESTIMATED > 60; GLUCOSE 122 MG/DL (70-105); POTASSIUM 3.9 MMOL/L (3.6-5.0); SODIUM 137 MMOL/L (135-145)
[2019-09-28 14:07] LABS: CALCIUM 9.2 MG/DL (8.5-10.1)
[~2019-10-04 07:59] MED LIST changes: -ACET-2469 PO; +ACET-2715 PO
[2019-10-04 08:18] LABS: WHITE BLOOD COUNT 4.5 10^3/uL (4.3-11.0)
[2019-10-04 08:19] LABS: BASOPHILS % (AUTO) 1 % (0-10); EOSINOPHILS # (AUTO) 0.1 10^3/uL (0.0-0.3); EOSINOPHILS % (AUTO) 2 % (0-10); HEMATOCRIT 35 % (35-52); HEMOGLOBIN 10.9 G/DL (11.5-16.0); LYMPHOCYTES # (AUTO) 0.4 X 10^3 (1.0-4.0); LYMPHOCYTES % (AUTO) 10 % (12-44); MEAN CORPUSCULAR HEMOGLOBIN 25 PG (25-34); MEAN CORPUSCULAR HGB CONC 31 G/DL (32-36); MEAN CORPUSCULAR VOLUME 82 FL (80-99); MEAN PLATELET VOLUME 8.8 FL (7.4-10.4); MONOCYTES % (AUTO) 21 % (0-12); NEUTROPHILS % (AUTO) 66 % (42-75); PLATELET COUNT 437 10^3/uL (130-400)
[2019-10-04 08:50] LABS: BUN/CREATININE RATIO 12; CALCIUM 9.5 MG/DL (8.5-10.1); CARBON DIOXIDE 23 MMOL/L (21-32); CHLORIDE 101 MMOL/L (98-107); CREATININE SERUM 0.76 MG/DL (0.60-1.30); GFR ESTIMATED > 60; GLUCOSE 102 MG/DL (70-105); POTASSIUM 4.3 MMOL/L (3.6-5.0); SODIUM 137 MMOL/L (135-145)
== END 2019-12-27 | disposition home or self-care (01) ==
LOC: LAB FS 07:59
PROVIDERS: ATTEND Nurse Practitioner Adult Health
DX: C85.90 Non-Hodgkin lymphoma, unspecified, unspecified site (principal)
CPT/HCPCS: 36415; 80048; 85025

== ENCOUNTER → 2019-10-12 | Outpatient (CLI) | payer BC ==
[~2019-10-12] MED LIST changes: +ACET-2469 PO; -ACET-2715 PO; +BARIUM SUSPENSION 2.1% (VANILLA SILQ) 450 ML PO ONE; +CATHETER FLUSH 10 ML SYR IV PRN; +HOLD METFORMIN - RECEIVED CONTRAST 20 ML VIAL IV SCH; +IOHEXOL 350 MG/ML 100 ML (OMNIPAQUE 350) VIAL IV ONE; +NS 100 ML (IVPB) BAG IV ONE
--- NOTE | 2019-10-12 10:47 | Diagnostic Imaging Report ---
INDICATION: Non-Hodgkin's lymphoma. Pre and postcontrast axial imaging through the abdomen and pelvis with postcontrast axial imaging through the neck and chest was performed. Correlation is made with prior CT from 07/22/2019. CT NECK: Posterior nasopharynx, oropharynx and larynx are unremarkable. No thyroid masses are detected. The submandibular and parotid glands appear to be symmetric bilaterally. No definite cervical or supraclavicular lymphadenopathy is detected. No fluid collections are seen. IMPRESSION: Unremarkable CT of the neck. No cervical lymphadenopathy is detected. CT CHEST: A right chest wall port remains in place. No axillary lymphadenopathy is seen. No internal mammary lymphadenopathy is detected. No mediastinal or hilar lymphadenopathy is detected. There is no pericardial or pleural fluid detected. A rounded density in the right base along the diaphragm, seen image 38 series 4 appears to be stable. Otherwise lungs are clear. No infiltrates are seen. IMPRESSION: Stable CT chest. No thoracic lymphadenopathy is detected. CT ABDOMEN AND PELVIS: Liver cyst appears to be stable. No new liver mass is detected. Gallbladder is unremarkable. There is no biliary ductal dilatation. The pancreas and spleen are unremarkable. No adrenal mass is seen. The kidneys are unremarkable. Aorta is non-aneurysmal. No central retroperitoneal or mesenteric lymphadenopathy is identified. Iliac chains are unremarkable. No inguinal or obturator lymphadenopathy is seen. The bladder and uterus are unremarkable. There is no ascites. Small and large bowel loops are normal caliber. IMPRESSION: Continued unremarkable CT abdomen and pelvis since the exam from 07/22/2019. No abdominal or pelvic lymphadenopathy is detected. No new abnormality is detected. Dictated by: Dictated on workstation # [id number]
== END ==
LOC: RAD 09:15
PROVIDERS: ATTEND Internal Medicine Hematology & Oncology
DX: C82.18 Follicular lymphoma grade II, lymph nodes of multiple sites (principal); Z95.828 Presence of other vascular implants and grafts
CPT/HCPCS: 70491; 71260; 74178

== ENCOUNTER 2019-10-18 08:50 | Outpatient (RCR) | payer BC ==
[2019-07-12 13:09] LABS: HEMATOCRIT 33 % (35-52); HEMOGLOBIN 10.6 G/DL (11.5-16.0); MEAN CORPUSCULAR HEMOGLOBIN 26 PG (25-34); MEAN CORPUSCULAR HGB CONC 32 G/DL (32-36); MEAN CORPUSCULAR VOLUME 82 FL (80-99); MEAN PLATELET VOLUME 8.7 FL (7.4-10.4); PLATELET COUNT 445 10^3/uL (130-400); RED CELL DISTRIBUTION WIDTH 16.9 % (10.0-14.5); WHITE BLOOD COUNT 7.4 10^3/uL (4.3-11.0)
[2019-07-12 13:10] LABS: BASOPHILS % (AUTO) 0 % (0-10); EOSINOPHILS # (AUTO) 0.1 10^3/uL (0.0-0.3); EOSINOPHILS % (AUTO) 2 % (0-10); LYMPHOCYTES # (AUTO) 0.4 X 10^3 (1.0-4.0); LYMPHOCYTES % (AUTO) 5 % (12-44); MONOCYTES % (AUTO) 14 % (0-12); NEUTROPHILS # (AUTO) 5.9 X 10^3 (1.8-7.8); NEUTROPHILS % (AUTO) 79 % (42-75)
[2019-07-12 13:21] LABS: BUN/CREATININE RATIO 14; CARBON DIOXIDE 22 MMOL/L (21-32); CHLORIDE 103 MMOL/L (98-107); CREATININE SERUM 0.72 MG/DL (0.60-1.30); GFR ESTIMATED > 60; GLUCOSE 109 MG/DL (70-105); POTASSIUM 4.1 MMOL/L (3.6-5.0); SODIUM 139 MMOL/L (135-145)
[2019-07-12 13:22] LABS: CALCIUM 9.2 MG/DL (8.5-10.1)
[2019-07-26 09:07] LABS: BASOPHILS % (AUTO) 0 % (0-10); EOSINOPHILS # (AUTO) 0.1 10^3/uL (0.0-0.3); EOSINOPHILS % (AUTO) 1 % (0-10); HEMATOCRIT 37 % (35-52); HEMOGLOBIN 11.6 G/DL (11.5-16.0); LYMPHOCYTES # (AUTO) 0.3 X 10^3 (1.0-4.0); LYMPHOCYTES % (AUTO) 6 % (12-44); MEAN CORPUSCULAR HEMOGLOBIN 26 PG (25-34); MEAN CORPUSCULAR HGB CONC 32 G/DL (32-36); MEAN CORPUSCULAR VOLUME 81 FL (80-99); MEAN PLATELET VOLUME 9.3 FL (7.4-10.4); MONOCYTES # (AUTO) 0.6 X 10^3 (0.0-1.0); MONOCYTES % (AUTO) 10 % (0-12); NEUTROPHILS % (AUTO) 83 % (42-75); PLATELET COUNT 418 10^3/uL (130-400); RED CELL DISTRIBUTION WIDTH 16.6 % (10.0-14.5)
[2019-07-26 09:41] LABS: ALANINE AMINOTRANSFERASE 16 U/L (0-55); ALBUMIN 4.2 GM/DL (3.2-4.5); ALKALINE PHOSPHATASE 79 U/L (40-136); BILIRUBIN,TOTAL 0.3 MG/DL (0.1-1.0); BUN/CREATININE RATIO 9; CALCIUM 9.2 MG/DL (8.5-10.1); CARBON DIOXIDE 22 MMOL/L (21-32); CHLORIDE 108 MMOL/L (98-107); CREATININE SERUM 0.78 MG/DL (0.60-1.30); GFR ESTIMATED > 60; GLUCOSE 119 MG/DL (70-105); POTASSIUM 4.1 MMOL/L (3.6-5.0); SODIUM 139 MMOL/L (135-145); TOTAL PROTEIN 6.9 GM/DL (6.4-8.2)
[2019-08-23 09:16] LABS: BASOPHILS % (AUTO) 1 % (0-10); EOSINOPHILS # (AUTO) 0.3 10^3/uL (0.0-0.3); EOSINOPHILS % (AUTO) 6 % (0-10); HEMATOCRIT 36 % (35-52); HEMOGLOBIN 11.4 G/DL (11.5-16.0); LYMPHOCYTES # (AUTO) 1.8 X 10^3 (1.0-4.0); LYMPHOCYTES % (AUTO) 40 % (12-44); MEAN CORPUSCULAR HEMOGLOBIN 26 PG (25-34); MEAN CORPUSCULAR HGB CONC 32 G/DL (32-36); MEAN CORPUSCULAR VOLUME 80 FL (80-99); MEAN PLATELET VOLUME 8.6 FL (7.4-10.4); MONOCYTES # (AUTO) 0.8 X 10^3 (0.0-1.0); MONOCYTES % (AUTO) 18 % (0-12); NEUTROPHILS # (AUTO) 1.7 X 10^3 (1.8-7.8); NEUTROPHILS % (AUTO) 36 % (42-75); PLATELET COUNT 420 10^3/uL (130-400); WHITE BLOOD COUNT 4.6 10^3/uL (4.3-11.0)
[2019-08-23 09:34] LABS: ALANINE AMINOTRANSFERASE 23 U/L (0-55); ALBUMIN 4.2 GM/DL (3.2-4.5); ALKALINE PHOSPHATASE 95 U/L (40-136); BILIRUBIN,TOTAL 0.3 MG/DL (0.1-1.0); BUN/CREATININE RATIO 13; CALCIUM 9.3 MG/DL (8.5-10.1); CARBON DIOXIDE 24 MMOL/L (21-32); CHLORIDE 109 MMOL/L (98-107); CREATININE SERUM 0.75 MG/DL (0.60-1.30); GFR ESTIMATED > 60; GLUCOSE 94 MG/DL (70-105); POTASSIUM 4.4 MMOL/L (3.6-5.0); SODIUM 140 MMOL/L (135-145); TOTAL PROTEIN 6.8 GM/DL (6.4-8.2)
[2019-09-20 09:23] LABS: BASOPHILS % (AUTO) 0 % (0-10); EOSINOPHILS # (AUTO) 0.1 10^3/uL (0.0-0.3); EOSINOPHILS % (AUTO) 2 % (0-10); HEMATOCRIT 34 % (35-52); HEMOGLOBIN 10.9 G/DL (11.5-16.0); LYMPHOCYTES % (AUTO) 23 % (12-44); MEAN CORPUSCULAR HEMOGLOBIN 26 PG (25-34); MEAN CORPUSCULAR HGB CONC 32 G/DL (32-36); MEAN CORPUSCULAR VOLUME 79 FL (80-99); MEAN PLATELET VOLUME 8.8 FL (7.4-10.4); MONOCYTES # (AUTO) 0.7 X 10^3 (0.0-1.0); MONOCYTES % (AUTO) 15 % (0-12); NEUTROPHILS # (AUTO) 2.7 X 10^3 (1.8-7.8); NEUTROPHILS % (AUTO) 60 % (42-75); PLATELET COUNT 401 10^3/uL (130-400); RED CELL DISTRIBUTION WIDTH 16.2 % (10.0-14.5); WHITE BLOOD COUNT 4.5 10^3/uL (4.3-11.0)
[2019-09-20 09:46] LABS: ALANINE AMINOTRANSFERASE 18 U/L (0-55); ALKALINE PHOSPHATASE 77 U/L (40-136); BILIRUBIN,TOTAL 0.3 MG/DL (0.1-1.0); BUN/CREATININE RATIO 14; CARBON DIOXIDE 20 MMOL/L (21-32); CHLORIDE 108 MMOL/L (98-107); CREATININE SERUM 0.79 MG/DL (0.60-1.30); GFR ESTIMATED > 60; GLUCOSE 113 MG/DL (70-105); POTASSIUM 4.1 MMOL/L (3.6-5.0); SODIUM 139 MMOL/L (135-145); TOTAL PROTEIN 6.4 GM/DL (6.4-8.2)
[~2019-10-18] VITALS: Ht 168.9 cm; Wt 82.1 kg
[~2019-10-18 08:50] MED LIST changes: +ACETAMINOPHEN 325 MG TAB (TYLENOL) CANCER CTR PO PRN; -BARIUM SUSPENSION 2.1% (VANILLA SILQ) 450 ML PO ONE; +BENDAMUSTINE HCL 160 MG in NS (IVPB) CANCER CENTER 50 ML IV SCH; -CATHETER FLUSH 10 ML SYR IV PRN; -HOLD METFORMIN - RECEIVED CONTRAST 20 ML VIAL IV SCH; -IOHEXOL 350 MG/ML 100 ML (OMNIPAQUE 350) VIAL IV ONE; -NS 100 ML (IVPB) BAG IV ONE; +NS IV 1000 ML (CANCER CTR) IV SCH; +NS IV 500 ML (CANCER CENTER) 500 ML ONE; +ONDANSETRON MDV (CANCER CENTER 16 MG, DEXAMETHASONE INJECTION 10 MG in NS (IVPB) CANCER... IV SCH; +PALONOSETRON HCL 0.25 MG, DEXAMETHASONE INJECTION 10 MG in NS (IVPB) CANCER CENTER 50 ML IV SCH; +diphenhydrAMINE 25 MG TAB (BENADRYL) CANCER CENTER PO ONE; +diphenhydrAMINE 50 MG/ML INJ (CANCER CENTER) IV PRN; +riTUXimab 500 MG, riTUXimab FOR IV INJ CONC 200 MG in NS (IVPB) CANCER CENTER ONLY 150 ML IV SCH
[2019-10-18 09:15] LABS: BASOPHILS % (AUTO) 1 % (0-10); EOSINOPHILS # (AUTO) 0.2 10^3/uL (0.0-0.3); EOSINOPHILS % (AUTO) 4 % (0-10); HEMATOCRIT 36 % (35-52); HEMOGLOBIN 11.3 G/DL (11.5-16.0); LYMPHOCYTES # (AUTO) 0.5 X 10^3 (1.0-4.0); LYMPHOCYTES % (AUTO) 14 % (12-44); MEAN CORPUSCULAR HEMOGLOBIN 25 PG (25-34); MEAN CORPUSCULAR HGB CONC 32 G/DL (32-36); MEAN CORPUSCULAR VOLUME 80 FL (80-99); MONOCYTES # (AUTO) 0.7 X 10^3 (0.0-1.0); MONOCYTES % (AUTO) 20 % (0-12); NEUTROPHILS # (AUTO) 2.2 X 10^3 (1.8-7.8); NEUTROPHILS % (AUTO) 62 % (42-75); PLATELET COUNT 407 10^3/uL (130-400); RED CELL DISTRIBUTION WIDTH 16.4 % (10.0-14.5); WHITE BLOOD COUNT 3.5 10^3/uL (4.3-11.0)
[2019-10-18 09:51] LABS: ALANINE AMINOTRANSFERASE 18 U/L (0-55); ALBUMIN 4.3 GM/DL (3.2-4.5); ALKALINE PHOSPHATASE 75 U/L (40-136); BILIRUBIN,TOTAL 0.2 MG/DL (0.1-1.0); BUN/CREATININE RATIO 11; CALCIUM 9.7 MG/DL (8.5-10.1); CARBON DIOXIDE 21 MMOL/L (21-32); CHLORIDE 108 MMOL/L (98-107); CREATININE SERUM 0.91 MG/DL (0.60-1.30); GFR ESTIMATED > 60; GLUCOSE 80 MG/DL (70-105); POTASSIUM 4.1 MMOL/L (3.6-5.0); SODIUM 140 MMOL/L (135-145); TOTAL PROTEIN 6.8 GM/DL (6.4-8.2)
== END 2019-10-24 | disposition home or self-care (01) ==
LOC: ONC 08:50
PROVIDERS: ATTEND Internal Medicine Hematology & Oncology
DX: C82.18 Follicular lymphoma grade II, lymph nodes of multiple sites (principal); K21.9 Gastro-esophageal reflux disease without esophagitis; Z79.899 Other long term (current) drug therapy
CPT/HCPCS: 36591; 80048; 80053; 83615; 85025; 96375; 96409; 96411; 96413; 99213; J9312

== ENCOUNTER 2020-01-11 08:58 | Outpatient (RCR) | payer BC ==
[2019-11-18 08:45] LABS: BASOPHILS % (AUTO) 1 % (0-10); EOSINOPHILS # (AUTO) 0.2 10^3/uL (0.0-0.3); EOSINOPHILS % (AUTO) 3 % (0-10); HEMATOCRIT 34 % (35-52); HEMOGLOBIN 10.8 G/DL (11.5-16.0); LYMPHOCYTES % (AUTO) 24 % (12-44); MEAN CORPUSCULAR HEMOGLOBIN 25 PG (25-34); MEAN CORPUSCULAR HGB CONC 32 G/DL (32-36); MEAN CORPUSCULAR VOLUME 78 FL (80-99); MONOCYTES # (AUTO) 0.9 X 10^3 (0.0-1.0); MONOCYTES % (AUTO) 20 % (0-12); NEUTROPHILS # (AUTO) 2.3 X 10^3 (1.8-7.8); NEUTROPHILS % (AUTO) 52 % (42-75); PLATELET COUNT 459 10^3/uL (130-400); RED CELL DISTRIBUTION WIDTH 16.1 % (10.0-14.5); WHITE BLOOD COUNT 4.4 10^3/uL (4.3-11.0)
[2019-11-18 09:10] LABS: ALANINE AMINOTRANSFERASE 63 U/L (0-55); ALBUMIN 4.5 GM/DL (3.2-4.5); ALKALINE PHOSPHATASE 101 U/L (40-136); BILIRUBIN,TOTAL 0.3 MG/DL (0.1-1.0); BUN/CREATININE RATIO 13; CALCIUM 9.4 MG/DL (8.5-10.1); CARBON DIOXIDE 21 MMOL/L (21-32); CHLORIDE 107 MMOL/L (98-107); CREATININE SERUM 0.97 MG/DL (0.60-1.30); GFR ESTIMATED > 60; GLUCOSE 96 MG/DL (70-105); POTASSIUM 4.5 MMOL/L (3.6-5.0); SODIUM 140 MMOL/L (135-145); TOTAL PROTEIN 6.8 GM/DL (6.4-8.2)
[~2020-01-11 08:58] MED LIST changes: -ACET-2469 PO; +ACET-2715 PO; -ONDA8TAB12; +ONDA8TAB15; -VALA500T; +VALA500T7
[2020-01-11 09:17] LABS: BASOPHILS % (AUTO) 0 % (0-10); EOSINOPHILS # (AUTO) 0.1 10^3/uL (0.0-0.3); EOSINOPHILS % (AUTO) 2 % (0-10); HEMATOCRIT 35 % (35-52); HEMOGLOBIN 10.9 G/DL (11.5-16.0); LYMPHOCYTES % (AUTO) 22 % (12-44); MEAN CORPUSCULAR HEMOGLOBIN 25 PG (25-34); MEAN CORPUSCULAR HGB CONC 32 G/DL (32-36); MEAN CORPUSCULAR VOLUME 78 FL (80-99); MEAN PLATELET VOLUME 9.4 FL (7.4-10.4); MONOCYTES # (AUTO) 0.4 X 10^3 (0.0-1.0); MONOCYTES % (AUTO) 8 % (0-12); NEUTROPHILS # (AUTO) 3.3 X 10^3 (1.8-7.8); NEUTROPHILS % (AUTO) 68 % (42-75); PLATELET COUNT 477 10^3/uL (130-400); RED CELL DISTRIBUTION WIDTH 15.5 % (10.0-14.5); WHITE BLOOD COUNT 4.8 10^3/uL (4.3-11.0)
[2020-01-11 09:44] LABS: ALANINE AMINOTRANSFERASE 32 U/L (0-55); ALBUMIN 4.6 GM/DL (3.2-4.5); ALKALINE PHOSPHATASE 114 U/L (40-136); BILIRUBIN,TOTAL 0.3 MG/DL (0.1-1.0); BUN/CREATININE RATIO 15; CALCIUM 9.9 MG/DL (8.5-10.1); CARBON DIOXIDE 21 MMOL/L (21-32); CHLORIDE 107 MMOL/L (98-107); CREATININE SERUM 0.86 MG/DL (0.60-1.30); GFR ESTIMATED > 60; GLUCOSE 150 MG/DL (70-105); POTASSIUM 3.9 MMOL/L (3.6-5.0); SODIUM 140 MMOL/L (135-145); TOTAL PROTEIN 7.1 GM/DL (6.4-8.2)
[2020-01-11] MEDS ORDERED: diphenhydrAMINE 25 MG TAB (BENADRYL) CANCER CENTER PO ONE (10:12)
== END 2020-02-16 | disposition home or self-care (01) ==
LOC: ONC 08:58
PROVIDERS: ATTEND Internal Medicine Hematology & Oncology
DX: Z51.11 Encounter for antineoplastic chemotherapy (principal); C82.18 Follicular lymphoma grade II, lymph nodes of multiple sites; K21.9 Gastro-esophageal reflux disease without esophagitis; Z79.899 Other long term (current) drug therapy
CPT/HCPCS: 36591; 80053; 85025; 96413; J9312

== ENCOUNTER 2020-05-05 11:54 | Emergency (ER) | payer BC ==
[~2020-05-05] VITALS: Ht 167 cm; Wt 82.9 kg
[~2020-05-05 11:54] MED LIST changes: -ACETAMINOPHEN 325 MG TAB (TYLENOL) CANCER CTR PO PRN; -BENDAMUSTINE HCL 160 MG in NS (IVPB) CANCER CENTER 50 ML IV SCH; -NS IV 1000 ML (CANCER CTR) IV SCH; -NS IV 500 ML (CANCER CENTER) 500 ML ONE; -ONDANSETRON MDV (CANCER CENTER 16 MG, DEXAMETHASONE INJECTION 10 MG in NS (IVPB) CANCER... IV SCH; -PALONOSETRON HCL 0.25 MG, DEXAMETHASONE INJECTION 10 MG in NS (IVPB) CANCER CENTER 50 ML IV SCH; -diphenhydrAMINE 25 MG TAB (BENADRYL) CANCER CENTER PO ONE; -diphenhydrAMINE 50 MG/ML INJ (CANCER CENTER) IV PRN; -riTUXimab 500 MG, riTUXimab FOR IV INJ CONC 200 MG in NS (IVPB) CANCER CENTER ONLY 150 ML IV SCH
[2020-05-05] MEDS ORDERED: LIDOCAINE/EPI 2% 1:100,00 (XYLOCAINE) 20 ML VIAL INJ ONE (12:15)
[2020-05-05] MEDS ORDERED: TRANEXAMIC ACID 100 MG/ML 10 ML INJECTION IV ONE (12:23)
[2020-05-05] MEDS ORDERED: TETANUS,DIPTH,PERTUSS P/F (BOOSTRIX) 0.5 ML VIAL IM ONE (12:30)
--- NOTE | 2020-05-05 12:30 | ED Upper Extremity ---
General Chief Complaint: Upper Extremity Stated Complaint: RT POINTER FINGER INJ Nursing Triage Note: cut tip of r first finger on a vegetable slicer. Nursing Sepsis Screen: No Definite Risk Source: patient History of Present Illness Date Seen by Provider: May 05, 2020 Time Seen by Provider: 12:00 Initial Comments Patient is a right-handed female presents with deep abrasion to right index finger pad after slicing finger while cutting vegetables. Bleeding has continued for 1 hour. Patient is not on anticoagulation therapy. Tetanus is out of date. Onset: just prior to arrival Severity: mild Pain/Injury Location: right 2nd finger (deep abrasion) Method of Injury: incised Modifying Factors: Improves With Other (dressing) Allergies and Home Medications Allergies Coded Allergies: hydrocodone (Unverified Adverse Reaction, Mild, 04/27/19) CAUSES NAUSEA/VOMITING, MIGRAINE BARTH Home Medications Acetaminophen/Diphenhydramine 1 Each Tablet, 1 EACH PO HS, (Reported) Fexofenadine HCl 180 Mg Tablet, 180 MG PO DAILY, (Reported) Levofloxacin 750 Mg Tablet, 750 MG PO DAILY Prescribed by: REBECCA BRITTON on 08/04/191999 Naproxen Sodium 220 Mg Tablet, 220 MG PO PRN, (Reported) Omeprazole Magnesium 20 Mg Tablet.dr, 20 MG PO DAILY, (Reported) [Bcp] , 1 TAB PO DAILY, (Reported) Patient Home Medication List Home Medication List Reviewed: Yes Review of Systems Constitutional: see HPI Skin: other (deep abrasion with gentle oozing to right distal index fingerPAD) Past Iupusoi-Ielnmy-Smbxrj Hx Patient Social History Alcohol Use: Denies Use Recreational Drug Use: No Smoking Status: Never a Smoker 2nd Hand Smoke Exposure: No Recent Foreign Travel: No Contact w/Someone Who Travel: No Recent Infectious Disease Expo: No Recent Hopitalizations: No Immunizations Up To Date Tetanus Booster (TDap): Unknown Date of Pneumonia Vaccine: Nov 23, 2018 Date of Influenza Vaccine: Aug 30, 2018 Seasonal Allergies Seasonal Allergies: No Past Medical History Surgeries: Yes (LAZY EYE CORRECTION x2, C/S x3, DXLS FOR OVARIAN CYST, EXC ENDOMETRIOSIS, ) Section, Eye Surgery Respiratory: No Cardiac: No Neurological: No Reproductive Disorders: Yes Female Reproductive Disorders: Endometriosis, Ovarian Cyst Sexually Transmitted Disease: No HIV/AIDS: No Genitourinary: Yes (OCCASIONALLY, HX BLADDER STRETCHED CHILD) UTI-Chronic Gastrointestinal: Yes Gastroesophageal Reflux, Chronic Constipation Musculoskeletal: No Endocrine: No HEENT: Yes (GLASSES/CONTACTS) Loss of Vision: Bilateral Hearing Impairment: Denies Cancer: Yes (FOLLICULAR LYMPHOMA, NON-HODGKINS TYPE) Lymphoma Did You Recieve Any Treatments: Yes What Type of Treatment Did You: Chemotherapy Psychosocial: No Integumentary: No Blood Disorders: No Adverse Reaction/Blood Tranf: No (N/A) Physical Exam Vital Signs Vital Signs - First Documented 05/05/20 12:04 Temp 36.5 Pulse 87 Resp 16 B/P (MAP) 123/80 (94) Pulse Ox 91 Capillary Refill : Less Than 3 Seconds Height, Weight, BMI Height: 5'6.50" Weight: 180lbs. 0.0oz. 81.330921ss; 29.00 BMI Method:Stated General Appearance: WD/WN, no apparent distress Hand: abrasions (deep abrasion with gentle oozing to right distal index fingerPAD) Progress/Results/Core Measures Results/Orders My Orders Orders - EVANS LEYVA DO Lidocaine/Epi 2% 1:100,000 (Xylocaine/Ep (05/05/20 12:15) Tranexamic Acid Injection (Cyklokapron I (05/05/20 12:23) Dipht,Pertuss(Acell),Tet Adult (Boostrix (05/05/20 12:30) Vital Signs/I&O 05/05/20 12:04 Temp 36.5 Pulse 87 Resp 16 B/P (MAP) 123/80 (94) Pulse Ox 91 Blood Pressure Mean: 94 Departure Communication (Admissions) TXA infused bandage applied and dressing applied with adequate control bleeding. Recommend supportive care and PCP follow-up as needed. Impression Primary Impression: Finger abrasion, non-infected Disposition: HOME, SELF-CARE Condition: Improved Departure-Patient Inst. Decision time for Depature: 12:34 Referrals: TAMMIE RIVERA MD (PCP/Family) Primary Care Physician Patient Instructions: Skin Abrasions Add. Discharge Instructions: Please keep wound clean, covered and dry for the next 3 days. Change dressings as needed. Follow up with your PCP as needed. All discharge instructions reviewed with patient and/or family. Voiced understanding. EVANS LEYVA DO May 05, 2020 12:30
[2020-05-05 13:19] VITALS: BP 124/64
--- NOTE | 2020-05-05 13:20 | NUR ---
Patient does not want tetanus vaccine today. This RN stated that she should contact her primary care provider to see when her last vaccine was administered and can obtain that vaccine through her pcp if needed.
== END 2020-05-05 13:22 | disposition home or self-care (01) ==
LOC: EDUNIT# 11:54 → ER FS 11:55
DX: S60.410A Abrasion of right index finger, initial encounter (principal); K21.9 Gastro-esophageal reflux disease without esophagitis; Z88.5 Allergy status to narcotic agent; Z85.72 Personal history of non-Hodgkin lymphomas; W26.8XXA Contact with other sharp object(s), not elsewhere classified, initial encounter

== ENCOUNTER 2020-05-08 12:59 | Outpatient (RCR) | payer BC ==
[2020-03-07 09:13] LABS: BASOPHILS % (AUTO) 0 % (0-10); EOSINOPHILS # (AUTO) 0.1 10^3/uL (0.0-0.3); EOSINOPHILS % (AUTO) 2 % (0-10); HEMATOCRIT 34 % (35-52); HEMOGLOBIN 10.8 G/DL (11.5-16.0); LYMPHOCYTES # (AUTO) 1.1 X 10^3 (1.0-4.0); LYMPHOCYTES % (AUTO) 19 % (12-44); MEAN CORPUSCULAR HEMOGLOBIN 24 PG (25-34); MEAN CORPUSCULAR HGB CONC 32 G/DL (32-36); MEAN CORPUSCULAR VOLUME 75 FL (80-99); MEAN PLATELET VOLUME 9.1 FL (7.4-10.4); MONOCYTES # (AUTO) 0.6 X 10^3 (0.0-1.0); MONOCYTES % (AUTO) 10 % (0-12); NEUTROPHILS % (AUTO) 69 % (42-75); PLATELET COUNT 525 10^3/uL (130-400); RED CELL DISTRIBUTION WIDTH 16.2 % (10.0-14.5); WHITE BLOOD COUNT 5.8 10^3/uL (4.3-11.0)
[2020-03-07 09:34] LABS: ALANINE AMINOTRANSFERASE 27 U/L (0-55); ALBUMIN 4.5 GM/DL (3.2-4.5); ALKALINE PHOSPHATASE 112 U/L (40-136); BILIRUBIN,TOTAL 0.4 MG/DL (0.1-1.0); BUN/CREATININE RATIO 13; CALCIUM 9.5 MG/DL (8.5-10.1); CARBON DIOXIDE 22 MMOL/L (21-32); CHLORIDE 105 MMOL/L (98-107); CREATININE SERUM 0.87 MG/DL (0.60-1.30); GFR ESTIMATED > 60; GLUCOSE 126 MG/DL (70-105); POTASSIUM 4.2 MMOL/L (3.6-5.0); SODIUM 139 MMOL/L (135-145)
[2020-05-02 09:11] LABS: BASOPHILS # (AUTO) 0.1 10^3/uL (0.0-0.1); BASOPHILS % (AUTO) 2 % (0-10); EOSINOPHILS # (AUTO) 0.1 10^3/uL (0.0-0.3); EOSINOPHILS % (AUTO) 3 % (0-10); HEMATOCRIT 41 % (35-52); HEMOGLOBIN 13.4 G/DL (11.5-16.0); LYMPHOCYTES # (AUTO) 1.4 X 10^3 (1.0-4.0); LYMPHOCYTES % (AUTO) 57 % (12-44); MEAN CORPUSCULAR HEMOGLOBIN 27 PG (25-34); MEAN CORPUSCULAR HGB CONC 33 G/DL (32-36); MEAN CORPUSCULAR VOLUME 82 FL (80-99); MEAN PLATELET VOLUME 8.8 FL (7.4-10.4); MONOCYTES # (AUTO) 0.9 X 10^3 (0.0-1.0); MONOCYTES % (AUTO) 34 % (0-12); NEUTROPHILS # (AUTO) 0.1 X 10^3 (1.8-7.8); NEUTROPHILS % (AUTO) 4 % (42-75); PLATELET COUNT 501 10^3/uL (130-400); RED CELL DISTRIBUTION WIDTH 21.1 % (10.0-14.5); WHITE BLOOD COUNT 2.5 10^3/uL (4.3-11.0)
[2020-05-02 09:45] LABS: ALANINE AMINOTRANSFERASE 18 U/L (0-55); ALBUMIN 4.5 GM/DL (3.2-4.5); ALKALINE PHOSPHATASE 130 U/L (40-136); BILIRUBIN,TOTAL 0.3 MG/DL (0.1-1.0); BUN/CREATININE RATIO 15; CALCIUM 9.8 MG/DL (8.5-10.1); CARBON DIOXIDE 20 MMOL/L (21-32); CHLORIDE 107 MMOL/L (98-107); CREATININE SERUM 0.84 MG/DL (0.60-1.30); GFR ESTIMATED > 60; GLUCOSE 103 MG/DL (70-105); POTASSIUM 3.9 MMOL/L (3.6-5.0); SODIUM 141 MMOL/L (135-145); TOTAL PROTEIN 7.3 GM/DL (6.4-8.2)
[~2020-05-08 12:59] MED LIST changes: +ACETAMINOPHEN 325 MG TAB (TYLENOL) CANCER CTR PO PRN; +FERRIC CARBOXYMALTOSE (CANCER) 750 MG in NS (IVPB) CANCER CENTER 250 ML IV SCH; +NS IV 1000 ML (CANCER CTR) IV SCH; +diphenhydrAMINE 25 MG TAB (BENADRYL) CANCER CENTER PO ONE; +diphenhydrAMINE 50 MG/ML INJ (CANCER CENTER) IV PRN; +riTUXimab 500 MG, riTUXimab FOR IV INJ CONC 200 MG in NS (IVPB) CANCER CENTER ONLY 150 ML IV SCH
[2020-05-08 13:14] LABS: BASOPHILS % (AUTO) 1 % (0-10); EOSINOPHILS # (AUTO) 0.1 10^3/uL (0.0-0.3); EOSINOPHILS % (AUTO) 1 % (0-10); HEMATOCRIT 41 % (35-52); HEMOGLOBIN 13.5 G/DL (11.5-16.0); LYMPHOCYTES # (AUTO) 1.7 X 10^3 (1.0-4.0); LYMPHOCYTES % (AUTO) 24 % (12-44); MEAN CORPUSCULAR HEMOGLOBIN 27 PG (25-34); MEAN CORPUSCULAR HGB CONC 33 G/DL (32-36); MEAN CORPUSCULAR VOLUME 83 FL (80-99); MONOCYTES # (AUTO) 0.6 X 10^3 (0.0-1.0); MONOCYTES % (AUTO) 8 % (0-12); NEUTROPHILS # (AUTO) 4.7 X 10^3 (1.8-7.8); NEUTROPHILS % (AUTO) 66 % (42-75); PLATELET COUNT 446 10^3/uL (130-400); RED CELL DISTRIBUTION WIDTH 21.2 % (10.0-14.5); WHITE BLOOD COUNT 7.1 10^3/uL (4.3-11.0)
[2020-05-21] MEDS ORDERED: ACYC800T PO (15:41)
[2020-05-21] MEDS ORDERED: CRAN250T2 PO (15:41)
[2020-05-21] MEDS ORDERED: OMEP40CA27 PO (15:41)
== END 2020-06-05 | disposition home or self-care (01) ==
LOC: ONC 12:59
PROVIDERS: ATTEND Internal Medicine Hematology & Oncology
DX: Z51.11 Encounter for antineoplastic chemotherapy (principal); Z51.81 Encounter for therapeutic drug level monitoring; C82.18 Follicular lymphoma grade II, lymph nodes of multiple sites; K21.9 Gastro-esophageal reflux disease without esophagitis; D50.9 Iron deficiency anemia, unspecified; Z79.899 Other long term (current) drug therapy
CPT/HCPCS: 80053; 82728; 83540; 83615; 85025; 96413; G0463; 36591; 96365; J9312

== ENCOUNTER 2020-05-21 05:49 | Outpatient (RCR) | payer BC ==
[~2020-05-21] VITALS: Ht 167.7 cm; Wt 83.2 kg
[~2020-05-21 05:49] MED LIST changes: -ACETAMINOPHEN 325 MG TAB (TYLENOL) CANCER CTR PO PRN; -FERRIC CARBOXYMALTOSE (CANCER) 750 MG in NS (IVPB) CANCER CENTER 250 ML IV SCH; -NS IV 1000 ML (CANCER CTR) IV SCH; -diphenhydrAMINE 25 MG TAB (BENADRYL) CANCER CENTER PO ONE; -diphenhydrAMINE 50 MG/ML INJ (CANCER CENTER) IV PRN; -riTUXimab 500 MG, riTUXimab FOR IV INJ CONC 200 MG in NS (IVPB) CANCER CENTER ONLY 150 ML IV SCH
[2020-05-21] MEDS ORDERED: ACYC800T PO (15:41)
[2020-05-21] MEDS ORDERED: CRAN250T2 PO (15:41)
[2020-05-21] MEDS ORDERED: OMEP40CA27 PO (15:41)
== END 2020-05-21 15:45 | disposition home or self-care (01) ==
LOC: PREOP 05:49
PROVIDERS: ATTEND Surgery
DX: Z01.818 Encounter for other preprocedural examination (principal)

== ENCOUNTER → 2020-05-22 | Outpatient (CLI) | payer BC ==
[~2020-05-22] MED LIST changes: +ACYC800T PO; +CRAN250T2 PO; +OMEP40CA27 PO
== END ==
LOC: LAB FS 10:42
PROVIDERS: ATTEND Surgery
DX: K29.70 Gastritis, unspecified, without bleeding (principal); Z20.828 Contact with and (suspected) exposure to other viral communicable diseases
CPT/HCPCS: 87635

== ENCOUNTER 2020-07-17 06:38 | Outpatient (RCR) | payer BC ==
[~2020-07-17] VITALS: Ht 166 cm; Wt 83.2 kg
== END 2020-07-17 15:14 | disposition home or self-care (01) ==
LOC: PREOP 06:38
PROVIDERS: ATTEND Surgery
DX: Z01.818 Encounter for other preprocedural examination (principal)

== ENCOUNTER → 2020-07-20 | Outpatient (CLI) | payer BC | LOC: LAB FS 10:18 | PROVIDERS: ATTEND Surgery | DX: Z01.818 Encounter for other preprocedural examination (principal); Z01.812 Encounter for preprocedural laboratory examination; Z12.11 Encounter for screening for malignant neoplasm of colon; K29.70 Gastritis, unspecified, without bleeding; Z20.828 Contact with and (suspected) exposure to other viral communicable diseases | CPT/HCPCS: 87635 ==

== ENCOUNTER 2020-08-22 08:35 | Outpatient (RCR) | payer BC ==
[2020-06-27 09:41] LABS: BASOPHILS % (AUTO) 1 % (0-10); EOSINOPHILS # (AUTO) 0.1 10^3/uL (0.0-0.3); EOSINOPHILS % (AUTO) 2 % (0-10); HEMATOCRIT 41 % (35-52); HEMOGLOBIN 13.6 G/DL (11.5-16.0); LYMPHOCYTES # (AUTO) 1.7 X 10^3 (1.0-4.0); LYMPHOCYTES % (AUTO) 36 % (12-44); MEAN CORPUSCULAR HEMOGLOBIN 29 PG (25-34); MEAN CORPUSCULAR HGB CONC 33 G/DL (32-36); MEAN CORPUSCULAR VOLUME 87 FL (80-99); MEAN PLATELET VOLUME 9.2 FL (7.4-10.4); MONOCYTES # (AUTO) 0.8 X 10^3 (0.0-1.0); MONOCYTES % (AUTO) 18 % (0-12); NEUTROPHILS # (AUTO) 2.1 X 10^3 (1.8-7.8); NEUTROPHILS % (AUTO) 45 % (42-75); PLATELET COUNT 383 10^3/uL (130-400); WHITE BLOOD COUNT 4.6 10^3/uL (4.3-11.0)
[2020-06-27 10:00] LABS: ALANINE AMINOTRANSFERASE 24 U/L (0-55); ALBUMIN 4.7 GM/DL (3.2-4.5); ALKALINE PHOSPHATASE 113 U/L (40-136); BILIRUBIN,TOTAL 0.4 MG/DL (0.1-1.0); BUN/CREATININE RATIO 12; CALCIUM 9.8 MG/DL (8.5-10.1); CARBON DIOXIDE 20 MMOL/L (21-32); CHLORIDE 109 MMOL/L (98-107); CREATININE SERUM 0.81 MG/DL (0.60-1.30); GFR ESTIMATED > 60; GLUCOSE 97 MG/DL (70-105); SODIUM 142 MMOL/L (135-145); TOTAL PROTEIN 7.3 GM/DL (6.4-8.2)
[~2020-08-22 08:35] MED LIST changes: -ACET-2715 PO; +ACET-3075 PO; +ACETAMINOPHEN 325 MG TAB (TYLENOL) CANCER CTR PO PRN; +NS IV 1000 ML (CANCER CTR) IV SCH; +RITUXIMAB-ABBS 500 MG, RITUXIMAB-ABBS 200 MG in NS (IVPB) CANCER CENTER ONLY 150 ML IV SCH; +diphenhydrAMINE 25 MG TAB (BENADRYL) CANCER CENTER PO ONE; +diphenhydrAMINE 50 MG/ML INJ (CANCER CENTER) IV PRN; +riTUXimab 500 MG, riTUXimab FOR IV INJ CONC 200 MG in NS (IVPB) CANCER CENTER ONLY 150 ML IV SCH
[2020-08-22 09:03] LABS: BASOPHILS % (AUTO) 1 % (0-10); EOSINOPHILS # (AUTO) 0.1 10^3/uL (0.0-0.3); EOSINOPHILS % (AUTO) 2 % (0-10); HEMATOCRIT 40 % (35-52); HEMOGLOBIN 13.4 g/dL (11.5-16.0); LYMPHOCYTES # (AUTO) 1.6 10^3/uL (1.0-4.0); LYMPHOCYTES % (AUTO) 29 % (12-44); MEAN CORPUSCULAR HEMOGLOBIN 30 pg (25-34); MEAN CORPUSCULAR HGB CONC 33 g/dL (32-36); MEAN CORPUSCULAR VOLUME 91 fL (80-99); MEAN PLATELET VOLUME 9.4 fL (9.0-12.2); MONOCYTES # (AUTO) 0.5 10^3/uL (0.0-1.0); MONOCYTES % (AUTO) 9 % (0-12); NEUTROPHILS # (AUTO) 3.4 10^3/uL (1.8-7.8); NEUTROPHILS % (AUTO) 60 % (42-75); PLATELET COUNT 365 10^3/uL (130-400); WHITE BLOOD COUNT 5.7 10^3/uL (4.3-11.0)
[2020-08-22] MEDS ORDERED: diphenhydrAMINE 25 MG TAB (BENADRYL) CANCER CENTER PO ONE (09:27)
[2020-08-22 09:38] LABS: ALANINE AMINOTRANSFERASE 22 U/L (0-55); ALBUMIN 4.5 GM/DL (3.2-4.5); ALKALINE PHOSPHATASE 119 U/L (40-136); BILIRUBIN,TOTAL 0.4 MG/DL (0.1-1.0); BUN/CREATININE RATIO 11; CALCIUM 9.5 MG/DL (8.5-10.1); CARBON DIOXIDE 20 MMOL/L (21-32); CHLORIDE 107 MMOL/L (98-107); CREATININE SERUM 0.79 MG/DL (0.60-1.30); GFR ESTIMATED > 60; GLUCOSE 103 MG/DL (70-105); POTASSIUM 4.1 MMOL/L (3.6-5.0); SODIUM 140 MMOL/L (135-145); TOTAL PROTEIN 6.9 GM/DL (6.4-8.2)
== END 2020-09-25 | disposition home or self-care (01) ==
LOC: ONC 08:35
PROVIDERS: ATTEND Internal Medicine Hematology & Oncology
DX: Z51.11 Encounter for antineoplastic chemotherapy (principal); Z51.81 Encounter for therapeutic drug level monitoring; C82.18 Follicular lymphoma grade II, lymph nodes of multiple sites; K21.9 Gastro-esophageal reflux disease without esophagitis; D50.9 Iron deficiency anemia, unspecified; Z79.899 Other long term (current) drug therapy
CPT/HCPCS: 80053; 82728; 83615; 85025; 96413; G0463; 36591

== ENCOUNTER 2020-10-17 08:40 | Outpatient (RCR) | payer BC ==
[~2020-10-17 08:40] MED LIST changes: -ACETAMINOPHEN 325 MG TAB (TYLENOL) CANCER CTR PO PRN; -NS IV 1000 ML (CANCER CTR) IV SCH; -RITUXIMAB-ABBS 500 MG, RITUXIMAB-ABBS 200 MG in NS (IVPB) CANCER CENTER ONLY 150 ML IV SCH; -diphenhydrAMINE 25 MG TAB (BENADRYL) CANCER CENTER PO ONE; -diphenhydrAMINE 50 MG/ML INJ (CANCER CENTER) IV PRN; -riTUXimab 500 MG, riTUXimab FOR IV INJ CONC 200 MG in NS (IVPB) CANCER CENTER ONLY 150 ML IV SCH
[2020-10-17] MEDS ORDERED: RITUXIMAB-ABBS 500 MG, RITUXIMAB-ABBS 200 MG in NS (IVPB) CANCER CENTER ONLY 150 ML IV SCH (08:47)
[2020-10-17] MEDS ORDERED: ACETAMINOPHEN 325 MG TAB (TYLENOL) CANCER CTR PO PRN (08:47)
[2020-10-17] MEDS ORDERED: diphenhydrAMINE 50 MG/ML INJ (CANCER CENTER) IV PRN (08:47)
[2020-10-17] MEDS ORDERED: NS IV 1000 ML (CANCER CTR) IV SCH (08:47)
[2020-10-17 09:00] LABS: BASOPHILS % (AUTO) 1 % (0-10); EOSINOPHILS # (AUTO) 0.1 10^3/uL (0.0-0.3); EOSINOPHILS % (AUTO) 1 % (0-10); HEMATOCRIT 43 % (35-52); HEMOGLOBIN 14.2 g/dL (11.5-16.0); LYMPHOCYTES # (AUTO) 2.1 10^3/uL (1.0-4.0); LYMPHOCYTES % (AUTO) 28 % (12-44); MEAN CORPUSCULAR HEMOGLOBIN 30 pg (25-34); MEAN CORPUSCULAR HGB CONC 33 g/dL (32-36); MEAN CORPUSCULAR VOLUME 92 fL (80-99); MEAN PLATELET VOLUME 9.3 fL (9.0-12.2); MONOCYTES # (AUTO) 0.6 10^3/uL (0.0-1.0); MONOCYTES % (AUTO) 7 % (0-12); NEUTROPHILS # (AUTO) 4.8 10^3/uL (1.8-7.8); NEUTROPHILS % (AUTO) 63 % (42-75); PLATELET COUNT 396 10^3/uL (130-400); WHITE BLOOD COUNT 7.5 10^3/uL (4.3-11.0)
[2020-10-17 09:20] LABS: ALANINE AMINOTRANSFERASE 31 U/L (0-55); ALBUMIN 4.7 GM/DL (3.2-4.5); ALKALINE PHOSPHATASE 136 U/L (40-136); BILIRUBIN,TOTAL 0.5 MG/DL (0.1-1.0); BUN/CREATININE RATIO 13; CALCIUM 9.6 MG/DL (8.5-10.1); CARBON DIOXIDE 22 MMOL/L (21-32); CHLORIDE 106 MMOL/L (98-107); CREATININE SERUM 0.83 MG/DL (0.60-1.30); GFR ESTIMATED > 60; GLUCOSE 115 MG/DL (70-105); POTASSIUM 3.8 MMOL/L (3.6-5.0); SODIUM 141 MMOL/L (135-145); TOTAL PROTEIN 7.3 GM/DL (6.4-8.2)
[2020-10-17] MEDS ORDERED: ACETAMINOPHEN 500 MG TAB (TYLENOL) CANCER CTR ONE (09:27)
[2020-10-17] MEDS ORDERED: diphenhydrAMINE 25 MG TAB (BENADRYL) CANCER CENTER PO ONE (09:27)
[2020-10-17] MEDS ORDERED: ACETAMINOPHEN 500 MG TAB (TYLENOL) CANCER CTR PO PRN (09:30)
== END 2020-11-30 14:36 | disposition home or self-care (01) ==
LOC: ONC 08:40
PROVIDERS: ATTEND Internal Medicine Hematology & Oncology
DX: Z51.11 Encounter for antineoplastic chemotherapy (principal); Z51.81 Encounter for therapeutic drug level monitoring; C82.18 Follicular lymphoma grade II, lymph nodes of multiple sites; K21.9 Gastro-esophageal reflux disease without esophagitis; D50.9 Iron deficiency anemia, unspecified; Z79.899 Other long term (current) drug therapy
CPT/HCPCS: 80053; 83615; 85025; 96413; G0463; 36591

== ENCOUNTER → 2020-10-23 | Outpatient (CLI) | payer BC ==
--- NOTE | 2020-10-23 17:09 | Diagnostic Imaging Report ---
HISTORY: Left arm pain. TECHNIQUE: Two views of the left humerus. COMPARISON: 08/04/2019 FINDINGS: No acute fracture or dislocation is seen in the left humerus. Alignment is normal. Imaged joint spaces generally appear preserved. IMPRESSION: 1. No acute or significant osseous abnormality is seen in the left humerus. Dictated by: Dictated on workstation # [id number]
== END ==
LOC: RAD FS 14:08
PROVIDERS: ATTEND Nurse Practitioner
DX: M79.602 Pain in left arm (principal)
CPT/HCPCS: 73060

== ENCOUNTER 2021-02-06 09:08 | Outpatient (RCR) | payer BC ==
[2020-12-12 09:19] LABS: BASOPHILS % (AUTO) 1 % (0-10); EOSINOPHILS # (AUTO) 0.1 10^3/uL (0.0-0.3); EOSINOPHILS % (AUTO) 1 % (0-10); HEMATOCRIT 41 % (35-52); HEMOGLOBIN 13.4 g/dL (11.5-16.0); LYMPHOCYTES # (AUTO) 1.8 10^3/uL (1.0-4.0); LYMPHOCYTES % (AUTO) 27 % (12-44); MEAN CORPUSCULAR HEMOGLOBIN 30 pg (25-34); MEAN CORPUSCULAR HGB CONC 33 g/dL (32-36); MEAN CORPUSCULAR VOLUME 91 fL (80-99); MEAN PLATELET VOLUME 9.6 fL (9.0-12.2); MONOCYTES # (AUTO) 0.5 10^3/uL (0.0-1.0); MONOCYTES % (AUTO) 8 % (0-12); NEUTROPHILS # (AUTO) 4.1 10^3/uL (1.8-7.8); NEUTROPHILS % (AUTO) 63 % (42-75); PLATELET COUNT 370 10^3/uL (130-400); WHITE BLOOD COUNT 6.5 10^3/uL (4.3-11.0)
[2020-12-12 09:33] LABS: ALANINE AMINOTRANSFERASE 24 U/L (0-55); ALBUMIN 4.6 GM/DL (3.2-4.5); ALKALINE PHOSPHATASE 134 U/L (40-136); BILIRUBIN,TOTAL 0.5 MG/DL (0.1-1.0); BUN/CREATININE RATIO 13; CALCIUM 9.7 MG/DL (8.5-10.1); CARBON DIOXIDE 20 MMOL/L (21-32); CHLORIDE 109 MMOL/L (98-107); CREATININE SERUM 0.82 MG/DL (0.60-1.30); GFR ESTIMATED > 60; GLUCOSE 102 MG/DL (70-105); SODIUM 142 MMOL/L (135-145)
[~2021-02-06 09:08] MED LIST changes: +ACETAMINOPHEN 500 MG TAB (TYLENOL) CANCER CTR PO PRN; +ACYC-112 PO; -ACYC800T PO; +NS IV 1000 ML (CANCER CTR) IV SCH; +RITUXIMAB-ABBS 500 MG, RITUXIMAB-ABBS 200 MG in NS (IVPB) CANCER CENTER ONLY 150 ML IV SCH; +diphenhydrAMINE 25 MG TAB (BENADRYL) CANCER CENTER PO ONE; +diphenhydrAMINE 50 MG/ML INJ (CANCER CENTER) IV PRN
[2021-02-06 09:28] LABS: BASOPHILS % (AUTO) 1 % (0-10); EOSINOPHILS # (AUTO) 0.1 10^3/uL (0.0-0.3); EOSINOPHILS % (AUTO) 1 % (0-10); HEMATOCRIT 41 % (35-52); HEMOGLOBIN 13.5 g/dL (11.5-16.0); LYMPHOCYTES # (AUTO) 1.9 10^3/uL (1.0-4.0); LYMPHOCYTES % (AUTO) 26 % (12-44); MEAN CORPUSCULAR HEMOGLOBIN 30 pg (25-34); MEAN CORPUSCULAR HGB CONC 33 g/dL (32-36); MEAN CORPUSCULAR VOLUME 90 fL (80-99); MEAN PLATELET VOLUME 9.6 fL (9.0-12.2); MONOCYTES # (AUTO) 0.6 10^3/uL (0.0-1.0); MONOCYTES % (AUTO) 8 % (0-12); NEUTROPHILS # (AUTO) 4.7 10^3/uL (1.8-7.8); NEUTROPHILS % (AUTO) 65 % (42-75); PLATELET COUNT 378 10^3/uL (130-400); WHITE BLOOD COUNT 7.3 10^3/uL (4.3-11.0)
[2021-02-06] MEDS ORDERED: diphenhydrAMINE 25 MG TAB (BENADRYL) CANCER CENTER PO ONE (09:52)
[2021-02-06 09:54] LABS: ALANINE AMINOTRANSFERASE 24 U/L (0-55); ALBUMIN 4.6 GM/DL (3.2-4.5); ALKALINE PHOSPHATASE 111 U/L (40-136); BILIRUBIN,TOTAL 0.5 MG/DL (0.1-1.0); BUN/CREATININE RATIO 14; CALCIUM 9.5 MG/DL (8.5-10.1); CARBON DIOXIDE 23 MMOL/L (21-32); CHLORIDE 108 MMOL/L (98-107); GFR ESTIMATED > 60; GLUCOSE 86 MG/DL (70-105); SODIUM 141 MMOL/L (135-145)
== END 2021-03-12 | disposition home or self-care (01) ==
LOC: ONC 09:08
PROVIDERS: ATTEND Internal Medicine Hematology & Oncology
DX: Z51.11 Encounter for antineoplastic chemotherapy (principal); Z51.81 Encounter for therapeutic drug level monitoring; C82.18 Follicular lymphoma grade II, lymph nodes of multiple sites; K21.9 Gastro-esophageal reflux disease without esophagitis; D50.9 Iron deficiency anemia, unspecified; Z79.899 Other long term (current) drug therapy
CPT/HCPCS: 80053; 83615; 85025; 96413; G0463; 36591

== ENCOUNTER → 2021-05-21 | Outpatient (CLI) | payer BC ==
[~2021-05-21] MED LIST changes: -ACETAMINOPHEN 500 MG TAB (TYLENOL) CANCER CTR PO PRN; -NS IV 1000 ML (CANCER CTR) IV SCH; -OMEP40CA27 PO; +OMEP40CA6 PO; -RITUXIMAB-ABBS 500 MG, RITUXIMAB-ABBS 200 MG in NS (IVPB) CANCER CENTER ONLY 150 ML IV SCH; -diphenhydrAMINE 25 MG TAB (BENADRYL) CANCER CENTER PO ONE; -diphenhydrAMINE 50 MG/ML INJ (CANCER CENTER) IV PRN
--- NOTE | 2021-05-21 13:59 | Diagnostic Imaging Report ---
INDICATION: Lower back pain. COMPARISON: None FINDINGS: Frontal and lateral views of the lumbar spine were obtained. Alignment and vertebral heights are maintained. There is no fracture or destructive process. Mild multilevel degenerative disease is noted in the lumbar spine. Limited views of the abdomen demonstrate nonobstructive bowel gas pattern. IMPRESSION: 1. No acute fracture or dislocation of the lumbar spine. 2. Mild multilevel degenerative changes. Dictated by: Dictated on workstation # [id number]
== END ==
LOC: RAD FS 09:59
PROVIDERS: ATTEND Nurse Practitioner
DX: M47.816 Spondylosis without myelopathy or radiculopathy, lumbar region (principal)
CPT/HCPCS: 72100

== ENCOUNTER 2021-05-29 08:36 | Outpatient (RCR) | payer BC ==
[2021-04-03 09:08] LABS: BASOPHILS # (AUTO) 0.1 10^3/uL (0.0-0.1); BASOPHILS % (AUTO) 1 % (0-10); EOSINOPHILS # (AUTO) 0.2 10^3/uL (0.0-0.3); EOSINOPHILS % (AUTO) 2 % (0-10); HEMATOCRIT 42 % (35-52); HEMOGLOBIN 13.7 g/dL (11.5-16.0); LYMPHOCYTES # (AUTO) 2.2 10^3/uL (1.0-4.0); LYMPHOCYTES % (AUTO) 33 % (12-44); MEAN CORPUSCULAR HEMOGLOBIN 30 pg (25-34); MEAN CORPUSCULAR HGB CONC 33 g/dL (32-36); MEAN CORPUSCULAR VOLUME 91 fL (80-99); MEAN PLATELET VOLUME 9.3 fL (9.0-12.2); MONOCYTES # (AUTO) 0.6 10^3/uL (0.0-1.0); MONOCYTES % (AUTO) 9 % (0-12); NEUTROPHILS # (AUTO) 3.7 10^3/uL (1.8-7.8); NEUTROPHILS % (AUTO) 56 % (42-75); PLATELET COUNT 421 10^3/uL (130-400); WHITE BLOOD COUNT 6.7 10^3/uL (4.3-11.0)
[2021-04-03 09:32] LABS: ALANINE AMINOTRANSFERASE 24 U/L (0-55); ALBUMIN 4.6 GM/DL (3.2-4.5); ALKALINE PHOSPHATASE 105 U/L (40-136); BILIRUBIN,TOTAL 0.5 MG/DL (0.1-1.0); BUN/CREATININE RATIO 11; CALCIUM 9.4 MG/DL (8.5-10.1); CARBON DIOXIDE 25 MMOL/L (21-32); CHLORIDE 106 MMOL/L (98-107); CREATININE SERUM 0.84 MG/DL (0.60-1.30); GFR ESTIMATED > 60; GLUCOSE 94 MG/DL (70-105); POTASSIUM 4.1 MMOL/L (3.6-5.0); SODIUM 141 MMOL/L (135-145)
[~2021-05-29 08:36] MED LIST changes: +ACETAMINOPHEN 500 MG TAB (TYLENOL) CANCER CTR PO PRN; +NS IV 1000 ML (CANCER CTR) IV SCH; +RITUXIMAB-ABBS 500 MG, RITUXIMAB-ABBS 200 MG in NS (IVPB) CANCER CENTER ONLY 150 ML IV SCH; +diphenhydrAMINE 25 MG TAB (BENADRYL) CANCER CENTER PO SCH; +diphenhydrAMINE 50 MG/ML INJ (CANCER CENTER) IV PRN
[2021-05-29 09:00] LABS: BASOPHILS # (AUTO) 0.1 10^3/uL (0.0-0.1); BASOPHILS % (AUTO) 1 % (0-10); EOSINOPHILS # (AUTO) 0.2 10^3/uL (0.0-0.3); EOSINOPHILS % (AUTO) 3 % (0-10); HEMATOCRIT 40 % (35-52); HEMOGLOBIN 13.1 g/dL (11.5-16.0); LYMPHOCYTES # (AUTO) 1.8 10^3/uL (1.0-4.0); LYMPHOCYTES % (AUTO) 34 % (12-44); MEAN CORPUSCULAR HEMOGLOBIN 30 pg (25-34); MEAN CORPUSCULAR HGB CONC 33 g/dL (32-36); MEAN CORPUSCULAR VOLUME 92 fL (80-99); MEAN PLATELET VOLUME 9.5 fL (9.0-12.2); MONOCYTES # (AUTO) 0.5 10^3/uL (0.0-1.0); MONOCYTES % (AUTO) 9 % (0-12); NEUTROPHILS # (AUTO) 2.9 10^3/uL (1.8-7.8); NEUTROPHILS % (AUTO) 53 % (42-75); PLATELET COUNT 378 10^3/uL (130-400); WHITE BLOOD COUNT 5.4 10^3/uL (4.3-11.0)
[2021-05-29 09:17] LABS: ALANINE AMINOTRANSFERASE 24 U/L (0-55); ALBUMIN 4.4 GM/DL (3.2-4.5); ALKALINE PHOSPHATASE 98 U/L (40-136); BILIRUBIN,TOTAL 0.4 MG/DL (0.1-1.0); BUN/CREATININE RATIO 12; CALCIUM 9.5 MG/DL (8.5-10.1); CARBON DIOXIDE 24 MMOL/L (21-32); CHLORIDE 110 MMOL/L (98-107); CREATININE SERUM 0.81 MG/DL (0.60-1.30); GFR ESTIMATED > 60; GLUCOSE 107 MG/DL (70-105); SODIUM 143 MMOL/L (135-145); TOTAL PROTEIN 6.7 GM/DL (6.4-8.2)
== END 2021-07-02 | disposition home or self-care (01) ==
LOC: ONC 08:36
PROVIDERS: ATTEND Internal Medicine Hematology & Oncology
DX: Z51.11 Encounter for antineoplastic chemotherapy (principal); C82.18 Follicular lymphoma grade II, lymph nodes of multiple sites; K21.9 Gastro-esophageal reflux disease without esophagitis; D50.9 Iron deficiency anemia, unspecified; Z79.899 Other long term (current) drug therapy
CPT/HCPCS: 80053; 83615; 85025; 96413; G0463; 36591

== ENCOUNTER → 2021-09-18 | Outpatient (CLI) | payer BC ==
[~2021-09-18] MED LIST changes: -ACETAMINOPHEN 500 MG TAB (TYLENOL) CANCER CTR PO PRN; +CATHETER FLUSH 10 ML SYR IV PRN; +HOLD METFORMIN - RECEIVED CONTRAST 20 ML VIAL IV SCH; +IOHEXOL 350 MG/ML 100 ML (OMNIPAQUE 350) VIAL IV ONE; +NS 100 ML (IVPB) BAG IV ONE; -NS IV 1000 ML (CANCER CTR) IV SCH; -RITUXIMAB-ABBS 500 MG, RITUXIMAB-ABBS 200 MG in NS (IVPB) CANCER CENTER ONLY 150 ML IV SCH; -diphenhydrAMINE 25 MG TAB (BENADRYL) CANCER CENTER PO SCH; -diphenhydrAMINE 50 MG/ML INJ (CANCER CENTER) IV PRN
--- NOTE | 2021-09-18 13:08 | Diagnostic Imaging Report ---
EXAMINATION: CT neck and chest with contrast. CT abdomen and pelvis with and without intravenous contrast. TECHNIQUE: Multiple contiguous axial images were obtained through the neck, chest, abdomen and pelvis after the uneventful administration of intravenous contrast. Pre-contrast images of the abdomen and pelvis were also obtained. All CT scans use one or more of the following dose optimizing techniques: automated exposure control, MA and/or KvP adjustment based on patient size and exam type or iterative reconstruction. HISTORY: FOLLICULAR NON-HODGKIN'S LYMPHOMA COMPARISON: None available. FINDINGS: Neck CT: Scattered subcentimeter lymph nodes are seen in the neck. None are pathologically enlarged or abnormally enhancing. The muscles of the neck are normal. Vessels of the neck demonstrate normal course and caliber. Fascial planes are preserved and the deep spaces of the neck are normal. The visualized airway is widely patent. The base of the skull and the temporal bones are normal. Limited views of the brain including the cerebellum and brainstem are normal. The limited view of the [place] is unremarkable. The visualized portions of the orbits are normal. The spinal canal is normal in caliber. Intervertebral disk heights are normal. Neural foramina are normal. Chest CT: The lungs are clear without edema or pneumonia. No pleural effusion or pneumothorax. No suspicious nodules. There is no axillary or supraclavicular lymphadenopathy. There is no mediastinal lymphadenopathy. There is a small amount of thymus in the anterior mediastinum that is evidenced by linear appearance of fat running through the soft tissue and a draining thymic vein. A right-sided port catheter is present. Heart size is normal. There are no coronary artery calcifications. No pericardial effusion. Aorta is normal in caliber. Abdomen and Pelvis CT: There is a simple cyst in segment of the liver. There is no biliary ductal dilation. Gallbladder is normal. Pancreas is normal. Spleen is normal. Adrenal glands are normal. The kidneys are normal. There is no hydronephrosis. Urinary bladder is normal. Visualized bowel is normal in caliber without obstruction or inflammation. No free fluid or air. No abdominal or pelvic lymphadenopathy. Aorta is normal in caliber without aneurysm. There are no suspicious osseous lesions. IMPRESSION: 1. No acute abnormality in the neck, chest, abdomen or pelvis. No lymphadenopathy. Dictated by: Dictated on workstation # [id number]
== END ==
LOC: RAD 11:45
PROVIDERS: ATTEND Internal Medicine Hematology & Oncology
DX: C82.90 Follicular lymphoma, unspecified, unspecified site (principal)
CPT/HCPCS: 70491; 71260; 74178

== ENCOUNTER 2021-09-23 08:49 | Outpatient (RCR) | payer BC ==
[2021-07-24 09:05] LABS: BASOPHILS % (AUTO) 1 % (0-10); EOSINOPHILS # (AUTO) 0.1 10^3/uL (0.0-0.3); EOSINOPHILS % (AUTO) 1 % (0-10); HEMATOCRIT 41 % (35-52); HEMOGLOBIN 13.6 g/dL (11.5-16.0); LYMPHOCYTES # (AUTO) 2.1 10^3/uL (1.0-4.0); LYMPHOCYTES % (AUTO) 33 % (12-44); MEAN CORPUSCULAR HEMOGLOBIN 30 pg (25-34); MEAN CORPUSCULAR HGB CONC 33 g/dL (32-36); MEAN CORPUSCULAR VOLUME 91 fL (80-99); MEAN PLATELET VOLUME 9.6 fL (9.0-12.2); MONOCYTES # (AUTO) 0.5 10^3/uL (0.0-1.0); MONOCYTES % (AUTO) 8 % (0-12); NEUTROPHILS # (AUTO) 3.6 10^3/uL (1.8-7.8); NEUTROPHILS % (AUTO) 57 % (42-75); PLATELET COUNT 400 10^3/uL (130-400); WHITE BLOOD COUNT 6.4 10^3/uL (4.3-11.0)
[2021-07-24 09:47] LABS: ALANINE AMINOTRANSFERASE 25 U/L (0-55); ALBUMIN 4.6 GM/DL (3.2-4.5); ALKALINE PHOSPHATASE 99 U/L (40-136); BILIRUBIN,TOTAL 0.5 MG/DL (0.1-1.0); BUN/CREATININE RATIO 15; CARBON DIOXIDE 20 MMOL/L (21-32); CHLORIDE 110 MMOL/L (98-107); GFR ESTIMATED 75; GLUCOSE 109 MG/DL (70-105); SODIUM 142 MMOL/L (135-145)
[2021-09-18 10:30] LABS: BASOPHILS % (AUTO) 1 % (0-10); EOSINOPHILS # (AUTO) 0.1 10^3/uL (0.0-0.3); EOSINOPHILS % (AUTO) 2 % (0-10); HEMATOCRIT 42 % (35-52); HEMOGLOBIN 13.7 g/dL (11.5-16.0); LYMPHOCYTES # (AUTO) 2.9 10^3/uL (1.0-4.0); LYMPHOCYTES % (AUTO) 33 % (12-44); MEAN CORPUSCULAR HEMOGLOBIN 30 pg (25-34); MEAN CORPUSCULAR HGB CONC 33 g/dL (32-36); MEAN CORPUSCULAR VOLUME 91 fL (80-99); MEAN PLATELET VOLUME 9.4 fL (9.0-12.2); MONOCYTES # (AUTO) 0.6 10^3/uL (0.0-1.0); MONOCYTES % (AUTO) 7 % (0-12); NEUTROPHILS # (AUTO) 5.2 10^3/uL (1.8-7.8); NEUTROPHILS % (AUTO) 59 % (42-75); PLATELET COUNT 419 10^3/uL (130-400); WHITE BLOOD COUNT 8.8 10^3/uL (4.3-11.0)
[2021-09-18 10:50] LABS: ALANINE AMINOTRANSFERASE 24 U/L (0-55); ALBUMIN 4.6 GM/DL (3.2-4.5); ALKALINE PHOSPHATASE 118 U/L (40-136); BILIRUBIN,TOTAL 0.4 MG/DL (0.1-1.0); BUN/CREATININE RATIO 16; CALCIUM 9.9 MG/DL (8.5-10.1); CARBON DIOXIDE 22 MMOL/L (21-32); CHLORIDE 105 MMOL/L (98-107); CREATININE SERUM 0.77 MG/DL (0.60-1.30); GFR ESTIMATED 79; GLUCOSE 95 MG/DL (70-105); POTASSIUM 4.3 MMOL/L (3.6-5.0); SODIUM 139 MMOL/L (135-145); TOTAL PROTEIN 7.1 GM/DL (6.4-8.2)
[~2021-09-23 08:49] MED LIST changes: +ACETAMINOPHEN 500 MG TAB (TYLENOL) CANCER CTR PO PRN; -CATHETER FLUSH 10 ML SYR IV PRN; -HOLD METFORMIN - RECEIVED CONTRAST 20 ML VIAL IV SCH; -IOHEXOL 350 MG/ML 100 ML (OMNIPAQUE 350) VIAL IV ONE; -NS 100 ML (IVPB) BAG IV ONE; +NS IV 1000 ML (CANCER CTR) IV SCH; +ONDA-106; -ONDA8TAB15; +RITUXIMAB-ABBS 500 MG, RITUXIMAB-ABBS 200 MG in NS (IVPB) CANCER CENTER ONLY 150 ML IV SCH; +diphenhydrAMINE 25 MG TAB (BENADRYL) CANCER CENTER PO SCH
== END 2021-10-22 | disposition home or self-care (01) ==
LOC: ONC 08:49
PROVIDERS: ATTEND Internal Medicine Hematology & Oncology
DX: Z51.11 Encounter for antineoplastic chemotherapy (principal); Z51.81 Encounter for therapeutic drug level monitoring; C82.18 Follicular lymphoma grade II, lymph nodes of multiple sites; Z79.899 Other long term (current) drug therapy
CPT/HCPCS: 80053; 83615; 85025; 96413; G0463; 36591; 99213

== ENCOUNTER 2021-11-08 08:39 | Outpatient (CLI) | payer BC ==
[~2021-11-08] VITALS: Ht 167 cm; Wt 76.2 kg
[~2021-11-08 08:39] MED LIST changes: -ACETAMINOPHEN 500 MG TAB (TYLENOL) CANCER CTR PO PRN; -NS IV 1000 ML (CANCER CTR) IV SCH; -RITUXIMAB-ABBS 500 MG, RITUXIMAB-ABBS 200 MG in NS (IVPB) CANCER CENTER ONLY 150 ML IV SCH; -diphenhydrAMINE 25 MG TAB (BENADRYL) CANCER CENTER PO SCH
[2021-11-08 09:03] VITALS: BP 116/75
[2021-11-08] MEDS ORDERED: BAMLANIVIMAB 700 MG/ETESEVIMAB 1,400 MG IN NS IV ONE ×3 (09:30)
[2021-11-08] MEDS ORDERED: ONDANSETRON 4 MG/2 ML (SDV) Z0FRAN IV PRN (09:30)
[2021-11-08] MEDS ORDERED: diphenhydrAMINE 50 MG/ML INJ (BENADRYL) IV PRN (09:30)
[2021-11-08] MEDS ORDERED: EPINEPHrine INJECTION 1 MG/ML AMP IM PRN (09:30)
[2021-11-08] MEDS ORDERED: ACETAMINOPHEN 500 MG TAB (TYLENOL) PO PRN (09:30)
[2021-11-08 11:07] VITALS: BP 122/76
== END 2021-11-08 11:07 | disposition home or self-care (01) ==
LOC: INFUSION 08:39
PROVIDERS: ATTEND Nurse Practitioner Family
DX: U07.1 COVID-19 (principal)

== ENCOUNTER → 2021-11-13 | Outpatient (CLI) | payer BC | END | disposition home or self-care (01) | LOC: PREOP 05:32 | PROVIDERS: ATTEND Surgery | DX: Z01.818 Encounter for other preprocedural examination (principal) ==

== ENCOUNTER → 2022-02-21 | Outpatient (CLI) | payer BC ==
[2022-02-21 15:48] LABS: BASOPHILS % (AUTO) 0 % (0-10); EOSINOPHILS % (AUTO) 0 % (0-10); HEMATOCRIT 38 % (35-52); HEMOGLOBIN 12.3 g/dL (11.5-16.0); LYMPHOCYTES # (AUTO) 0.9 10^3/uL (1.0-4.0); LYMPHOCYTES % (AUTO) 6 % (12-44); MEAN CORPUSCULAR HEMOGLOBIN 28 pg (25-34); MEAN CORPUSCULAR HGB CONC 33 g/dL (32-36); MEAN CORPUSCULAR VOLUME 86 fL (80-99); MEAN PLATELET VOLUME 9.1 fL (9.0-12.2); MONOCYTES # (AUTO) 0.4 10^3/uL (0.0-1.0); MONOCYTES % (AUTO) 3 % (0-12); NEUTROPHILS # (AUTO) 13.3 10^3/uL (1.8-7.8); NEUTROPHILS % (AUTO) 91 % (42-75); PLATELET COUNT 451 10^3/uL (130-400); WHITE BLOOD COUNT 14.7 10^3/uL (4.3-11.0)
[2022-02-21 16:01] LABS: LYMPHOCYTES % (MANUAL) 8 %; MONOCYTES % (MANUAL) 2 %; NEUTROPHILS % (MANUAL) 90 %; PLATELET ESTIMATE INCREASED
[2022-02-21 16:02] LABS: TOXIC GRANULATION/VACUOLAZATIO 2+
[2022-02-21 17:08] LABS: ERYTHROCYTE SEDIMENTATION RATE 42 MM/HR (0-30)
== END ==
LOC: LAB FS 15:25
PROVIDERS: ATTEND Family Medicine
DX: R50.9 Fever, unspecified (principal)
CPT/HCPCS: 36415; 85007; 85027; 85652

== ENCOUNTER 2022-08-15 20:25 | Outpatient (CLI) | payer BC | END 2022-08-16 06:15 | disposition home or self-care (01) | LOC: SLEEP 20:25 | PROVIDERS: ATTEND Nurse Practitioner Family | DX: G47.10 Hypersomnia, unspecified (principal); I10 Essential (primary) hypertension | CPT/HCPCS: 95811 ==